=== PATIENT | male | born 1945 | race Caucasian/White ===

== ENCOUNTER 2016-11-03 10:25 | Inpatient (IN) | payer MEDICARE, BC ==
[~2016-11-03] VITALS: Ht 185.4 cm; Wt 79.0 kg
[~2016-11-03 10:25] MED LIST: ADV50050 INH; CIPR500T4 PO; IPRA4AER IH; THP300CCR PO; TIOT18CA INH; Tamsulosin Hcl PO
[2016-11-03] MEDS ORDERED: SOD CHLORIDE 0.9% 1,000 ML IV STA (10:48)
[2016-11-03] MEDS ORDERED: METHYLPREDNISOLONE 125 MG INJ IV STA (10:48)
[2016-11-03] MEDS ORDERED: IPRATROPIUM (NEB) 0.5 MG/2.5 ML AMP INH STA (10:48)
[2016-11-03] MEDS ORDERED: AZITHROMYCIN 500MG/250 ML NS IVPB IV STA (10:48)
[2016-11-03] MEDS ORDERED: CEFTRIAXONE 1 GM/50 ML (PMX) 50 ML IVPB STA (10:48)
[2016-11-03] MEDS ORDERED: ASPIRIN 81 MG TAB PO STA (10:48)
[2016-11-03] MEDS ORDERED: ALBUTEROL 0.083% (NEB) 2.5 MG/3 ML AMP INH STA (10:48)
[2016-11-03 11:24] LABS: ADD SCAN DIFF NO
[2016-11-03 11:27] LABS: ABNORMAL IP MESSAGE 1; HEMATOCRIT 39.8 % (42.0-52.0); HEMOGLOBIN 12.5 g/dl (14.0-18.0); MEAN CORPUSCULAR HEMOGLOBIN 29.4 pg (29.0-33.0); MEAN CORPUSCULAR HGB CONC 31.4 g/dl (32.0-37.0); MEAN CORPUSCULAR VOLUME 93.6 fl (82.0-101.0); MEAN PLATELET VOLUME 11.4 fl (7.4-10.4); PLATELET COUNT 396 10^3/UL (140-415); RED BLOOD COUNT 4.25 10^6/ul (4.70-6.10); RED CELL DISTRIBUTION WIDTH 15.5 % (11.5-14.5)
[2016-11-03] MEDS ORDERED: DILT180C94 PO (11:42)
--- NOTE | 2016-11-03 11:45 | RADRPT ---
PROCEDURE: XR Chest. CLINICAL INDICATION: Shortness of breath TECHNIQUE: Single frontal chest x-ray. COMPARISON: 12/04/2014 FINDINGS: There is large bullous change seen in the right upper thorax similar previous exam. There is new le ft suprahilar opacity.. Increase hilar vascular and interstitial congestion is seen. . There is hy perinflation of the lungs consistent with COPD. Calcified granulomas are noted in the right lower l obe.. The cardiomediastinal silhouette is unremarkable. The osseous structures are intact. IMPRESSION: 1. New left suprahilar opacity suggestive of infiltrate. Recommend follow-up. 2. Increase hilar vascular and interstitial congestive changes. 3. Hyperinflation of lungs with large bullous change in the right upper lobe similar prior exam. RPTAT: QQ .Axel Cedillo MD, MD Date Time Electronically viewed and signed by .Axel Cedillo MD, MD on 11/03/2016 11:44 .L/
[2016-11-03 11:54] LABS: CALCIUM 9.6 mg/dl (8.4-10.2); CREATININE 1.04 mg/dl (0.61-1.24); POTASSIUM 4.2 mmol/L (3.5-5.1)
[2016-11-03 12:01] LABS: INR 1.11; PROTIME 14.3 Sec (12.2-14.2); PT RATIO 1.1
[2016-11-03 12:06] LABS: TROPONIN-I 0.024 ng/ml (0.00-0.12)
[2016-11-03 12:07] LABS: PARTIAL THROMBOPLASTIN TIME 31.7 Sec (25.0-35.0)
[2016-11-03 12:35] LABS: LYMPHOCYTES # 1.8 10^3/ul (0.8-2.9); MONOCYTE # 2.1 10^3/ul (0.3-0.9); NEUTROPHIL # 30.4 10^3/ul (1.6-7.5)
[2016-11-03] MEDS ORDERED: DICLOFENAC SODIUM 37.5 MG/ML VIAL IV STA (12:35)
[2016-11-03] MEDS ORDERED: SODIUM CHLORIDE 0.9% 1L BAG IV* STA (12:38)
--- NOTE | 2016-11-03 12:56 | ERA ---
ER Documentation Chief Complaint Date/Time DATE: 11/03/16 TIME: 12:46 Chief Complaint rt side back pain s/p mechanical fall x 3 yesterday , sob h/o copd HPI 71-year-old male with a history of emphysema presenting with about 1 week of coughing and shortness of breath. He feels like he has something in his left chest. He has some chest discomfort but not pain. He has been trying to treat his COPD at home, but he has been increasingly getting more weak. He had a mechanical fall yesterday due to weakness in his legs. He now complains of right-sided lower back pain. He denies any focal weakness or numbness in his lower extremities. No urinary or bowel changes. He also complains that he has been feeling feverish ROS All systems reviewed and are negative except as per history of present illness. Medications Home Meds Active Scripts Albuterol/Ipratropium* (Combivent Respimat*) 20-100 Mcg/Inh - 4 Gm Aer.w.adap, 2 PUFF IH QID, #1 VIAL 1 Refill Prov:ABIGAIL FLORES 12/11/14 Salmeterol Xinaf-Fluticasone* (Advair*) 1 Inh Inha, 1 INH INH BID for 30 Days, 1 Refill Prov:ABIGAIL FLORES 12/11/14 [Tamsulosin Hcl] 0.4 MG CAPSR No Conflict Check, 0.4 MG PO HS for 30 Days Prov:ABIGAIL FLORES 12/11/14 Tiotropium [place]* (Spiriva*) 1 Inh Inha, 1 INH INH DAILY for 30 Days Prov:LEESA CARMICHAEL MANUFACTURING DEVELOPMENT ENGINEER 06/24/14 Reported Medications Diltiazem Hcl* (Diltiazem XT) 180 Mg Capsule.er, 180 MG PO DAILY, #30 CAP 11/03/16 Discontinued Scripts Theophylline Anhydrous* (Rocael-24*) 300 Mg Cap.sr.24h, 300 MG PO DAILY for 30 Days, CAP Prov:ABIGAIL FLORES 12/11/14 Ciprofloxacin Hcl* (Ciprofloxacin Hcl*) 500 Mg Tablet, 500 MG PO BID for 5 Days , TAB Prov:ABIGAIL FLORES 12/11/14 Allergies Allergies: Coded Allergies: Sulfa (Sulfonamide Antibiotics) (Verified Allergy, Intermediate, RASH, 04/10) levofloxacin (Verified Allergy, Unknown, 12/04/14) PMhx/Soc History of Surgery: Yes (Hernia repair, right ankle surgery) Anesthesia Reaction: No Hx Neurological Disorder: No Hx Respiratory Disorders: Yes (COPD, Emphysema) Hx Cardiac Disorders: Yes (HTN) Hx Psychiatric Problems: No Hx Miscellaneous Medical Probl: No Hx Alcohol Use: Yes Hx Substance Use: No Hx Tobacco Use: No Smoking Status: Former smoker FmHx Family History: No diabetes Physical Exam Vitals Vital Signs Date Time Temp Pulse Resp B/P Pulse Ox O2 Delivery O2 Flow Rate FiO2 11/03/16 11:33 113 20 95 Nasal Cannula 2.0 11/03/16 11:33 2.0 11/03/16 11:05 Nasal Cannula 2 11/03/16 11:05 120 24 110/81 96 Nasal Cannula 2.5 11/03/16 11:05 Nasal Cannula 2.5 11/03/16 10:33 98.9 134 20 101/65 90 Physical Exam Const: Speaking in short sentences, in respiratory distress Head: Atraumatic Eyes: Normal Conjunctiva, PERRLA, EOMI ENT: Dry mucous membranes, no stridor Neck: Full range of motion. No midline tenderness. No JVD. No meningismus. Resp: Significantly diminished breath sounds bilaterally with expiratory wheezing, left greater than right, no rales or rhonchi Cardio: Tachycardic with regular rhythm, no murmurs Abd: Soft, non tender, non distended. Normal bowel sounds Skin: No petechiae or rashes. No discoloration of extremities, cap refill less than 2 seconds Back: Tenderness of paraspinal muscles on the right side of the spine in the thoracic and lumbar region. No midline tenderness or step-offs. No ecchymoses. Ext: No cyanosis, left pedal and ankle edema, nontender bilateral lower extremities. Neur: Awake and alert and oriented 3, no facial asymmetry, strength and sensations intact in all 4 extremities Psych: Normal Mood and Affect Result Diagram: 11/03/16 1055 11/03/16 1055 Results 24 hrs Laboratory Tests Test 11/03/16 10:55 11/03/16 12:50 White Blood Count 35.310^3/ul Red Blood Count 4.2510^6/ul Hemoglobin 12.5g/dl Hematocrit 39.8% Mean Corpuscular Volume 93.6fl Mean Corpuscular Hemoglobin 29.4pg Mean Corpuscular Hemoglobin Concent 31.4g/dl Red Cell Distribution Width 15.5% Platelet Count 16201^3/UL Mean Platelet Volume 11.4fl Neutrophils % 86.0% Band Neutrophils % 3.0% Lymphocytes % 5.0% Monocytes % 6.0% Neutrophils # 30.410^3/ul Lymphocytes # 1.810^3/ul Monocytes # 2.110^3/ul Prothrombin Time 14.3Sec Prothrombin Time Ratio 1.1 INR International Normalized Ratio 1.11 Activated Partial Thromboplast Time 31.7Sec Sodium Level 143mmol/L Potassium Level 4.2mmol/L Chloride Level 102mmol/L Carbon Dioxide Level 32mmol/L Anion Gap 13 Blood Urea Nitrogen 25mg/dl Creatinine 1.04mg/dl Glucose Level 112mg/dl Lactic Acid Level 2.2mmol/L 2.7mmol/L Calcium Level 9.6mg/dl Troponin I 0.024ng/ml Current Medications Medications (Trade) Dose Ordered Sig/Kat Route PRN Reason Start Time Stop Time Status Last Admin Dose Admin Sodium Chloride (NS) 1,000 ml @ 1,000 mls/hr Q1H STAT IV 11/03/16 10:48 11/03/16 11:47 DC 11/03/16 11:20 Albuterol (Proventil 0.083% (Neb)) 7.5 mg ONCE STAT INH 11/03/16 10:48 11/03/16 10:50 DC 11/03/16 11:27 Ipratropium [place] (Atrovent 0.02% (Neb)) 0.5 mg ONCE STAT INH 11/03/16 10:48 11/03/16 10:50 DC 11/03/16 11:27 Methylprednisolone Sodium Succinate (Solu-Medrol) 125 mg ONCE STAT IV 11/03/16 10:48 11/03/16 10:50 DC 11/03/16 11:19 Aspirin (Aspirin) 162 mg ONCE STAT PO 11/03/16 10:48 11/03/16 10:50 DC 11/03/16 11:19 Azithromycin 500 mg 500 mg ONCE STAT IV 11/03/16 10:48 11/03/16 10:50 DC 11/03/16 11:20 Ceftriaxone Sodium (Rocephin) 50 ml @ 100 mls/hr ONCE STAT IVPB 11/03/16 10:48 11/03/16 11:17 DC 11/03/16 11:19 Diclofenac Sodium (Dyloject) 37.5 mg ONCE STAT IV 11/03/16 12:35 11/03/16 12:37 DC 11/03/16 12:41 Sodium Chloride (NS) 1,450 ml BOLUS OVER 2 HOURS STAT IV* 11/03/16 12:38 11/03/16 12:39 DC 11/03/16 12:45 Ondansetron HCl (Zofran Inj) 4 mg ER BRIDGE PRN IV NAUSEA AND/OR VOMITING 11/03/16 13:30 11/04/16 13:29 Acetaminophen (Tylenol Tab) 650 mg ER BRIDGE PRN PO MILD PAIN/FEVER 11/03/16 13:30 11/04/16 13:29 Procedures/MDM Labs: Leukocytosis, elevated lactate, elevated CO2. troponin above the upper limit of normal, indeterminate Chest x-ray: IMPRESSION: 1. New left suprahilar opacity suggestive of infiltrate. Recommend follow-up. 2. Increase hilar vascular and interstitial congestive changes. 3. Hyperinflation of lungs with large bullous change in the right upper lobe similar prior exam. RPTAT: QQ .Axel Cedillo MD, MD Date Time Electronically viewed and signed by .Axel Cedillo MD, MD on 11/03/2016 11:44 L-spine x-ray pending T-spine x-ray pending MDM Patient is presenting with evidence of COPD exacerbation secondary to pneumonia with concomitant sepsis. Broad-spectrum antibiotics including azithromycin and ceftriaxone were given. IV fluids were started. Dyloject checked was given for pain. I have a low suspicion for spinal fracture, however given his significant pain and age, x-rays were ordered. Patient's infectious symptoms have not stabilized and the patient is at risk of rapid decompensation. The patient will be admitted for careful hydration, antibiotic therapy, and infectious source control. Severe Sepsis Assessment: Infectious Source: Community acquired pneumonia End organ damage indicated by: Lactate > 2.0 mmol/L Severe Sepsis Managment: Blood Cultures X 2 before broad spectrum antibiotics initiated within 3 hours of recognition. 30 ml/kg NS bolus Completed Initial Lactate: 2.2 Repeat Lactate pending Critical Care: Time: 40 minutes Treatments/Evaluations: Emergent fluid management, while maintaining close respiratory support. Immediate broad spectrum antibiotic therapy. Simultaneous assessment for possible sources in order to direct therapy. Consideration for invasive and chemical support to prevent respiratory or cardiac collapse. Septic Shock Assessment (1 hour post 30 ml/kg fluid bolus): Hypotension (SBP < 90 or 40 mmHg drop, MAP < 65): No Lactic acid > 4.0 no Accepting Care Team: Current data and ongoing care discussed. Time: Time of admission Primary Provider: Arvind Consulting: None Outstanding Data: Cultures, x-rays of T and L-spine Departure Diagnosis: Primary Impression: Acute respiratory failure Qualified Code: J96.00 - Acute respiratory failure, unspecified whether with hypoxia or hypercapnia Additional Impressions: Sepsis Qualified Code: A41.9 - Sepsis, due to unspecified organism Community acquired pneumonia COPD with exacerbation Condition: Critical STEFANIE SANTIAGO MD Nov 03, 2016 12:56
[2016-11-03] MEDS ORDERED: ONDANSETRON 4 MG INJ IV PRN ×2 (13:30→15:30)
[2016-11-03] MEDS ORDERED: ACETAMINOPHEN 325 MG TAB PO PRN ×2 (13:30→15:30)
--- NOTE | 2016-11-03 13:55 | RADRPT ---
PROCEDURE: Thoracic Spine. CLINICAL INDICATION: Back pain. Status post fall. TECHNIQUE: AP and lateral views of the thoracic spine are available for review COMPARISON: None available FINDINGS: Slight levocurvature of the lower thoracic spine.. The vertebral body heights and intervertebral di sk heights are all preserved. The normal thoracic kyphosis is present. No fracture or dislocation is seen. No radiopaque foreign body is identified. The paraspinous soft tissues are unremarkable. Degenerative spondylosis of the right lower thoracic spine is present. Again noted is a left upper l aurelia opacity or infiltrate. IMPRESSION: No acute fracture or compression. Left upper lung opacity or infiltrate. Mild levocurvature of the lower lumbar spine with degenerative spondylosis RPTAT: QQ .Axel Cedillo MD, Date Time Electronically viewed and signed by .Axel Cedillo MD, on 11/03/2016 13:55 .L/
--- NOTE | 2016-11-03 14:03 | RADRPT ---
PROCEDURE: XR Lumbar Spine. CLINICAL INDICATION: Fall with pain. TECHNIQUE: Three views of the lumbar spine are available for review COMPARISON: None available FINDINGS: There is no definite acute fracture or static subluxation. There is lumbar dextroscoliosis with asso ciated moderate to severe multilevel degenerative spondylosis. The normal lumbar lordosis is preserv ed and the alignment is normal. The posterior elements are normal in appearance. There are atheroscl erotic vascular calcifications. IMPRESSION: 1. Negative for definite acute fracture or static subluxation. If clinical concern for fracture rem ains, CT or MRI can be performed for further evaluation. 2. Lumbar dextroscoliosis and associated multilevel moderate to severe degenerative spondylosis. 3. Vascular calcifications consistent with atherosclerosis. RPTAT: AA .Jaquan Bonds MD, Date Time Electronically viewed and signed by .Jaquan Bonds MD, MD on 11/03/2016 14:02 .P/
[2016-11-03] MEDS ORDERED: HYDROCODONE/APAP (5/325) TAB PO PRN (15:30)
[2016-11-03] MEDS ORDERED: morphine 2 MG INJ IV PRN (15:30)
[2016-11-03] MEDS ORDERED: NACL 0.9% 3 ML SYG IV SCH (15:30)
[2016-11-03] MEDS ORDERED: DOCUSATE SODIUM 100 MG CAP PO PRN (15:30)
[2016-11-03] MEDS ORDERED: ACETAMINOPHEN 650 MG SUPP PR PRN (15:30)
[2016-11-03] MEDS ORDERED: BISACODYL 10 MG SUPP PR PRN (15:30)
--- NOTE | 2016-11-03 16:22 | HP ---
Date/Time of Note Date/Time of Note DATE: 11/03/16 TIME: 16:11 Assessment/Plan VTE Prophylaxis VTE Prophylaxis Intervention: heparin Assessment/Plan Chief Complaint/Hosp Course Assessment and plan 1. Sepsis secondary to community acquired pneumonia. Continue antibiotics. Follow-up on sputum culture. 2. COPD with exacerbation. Will get record librarian to follow. Will start on bronchodilators. We will also place on steroid treatment. 3. BPH. Patient resumed on his BPH medication 4. Leukocytosis secondary to #1. Will provide with antipyretics as needed. 5. Anemia. Follow-up on iron panel. DVT prophylaxis: Heparin Admission process 40 minutes Discussed plan of care with Problems: HPI/ROS Admit Date/Time Admit Date/Time Hx of Present Illness This is a 71 year old female with history of emyphysema, BPH, o2 dependence, who came to [facility] due to reports of 5 days duration shortness of breath. Patient reports that he started to have some cough with associated productive yellow phlegm and also increasing dyspnea on exertion for 5 days. He did report that he had become so weak that he fell on his tailbone 3 times when trying to get up from his couch. He denies any loss of consciousness or chest pain. No reports having symptoms of shortness of breath despite the use of his inhalers. He did go to [facility] due to the aformentiond issues and he did have a chest x-ray did show him to have a new left suprahilar opacity suggestive of pneumonia. There is also seen some increase in hilar vascular and interstitial congestive changes. Additionally since he did have a fall he had thoracic and lumbar spine x-ray that was negative for any definite acute fracture. On laboratory work she was found to have a lactic acid of 2.7 and additionally had a white count of 35.3. He did have some pneumonia normocytic normochromic likely of chronic disease. He did remain afebrile but was noted with heart rate as high as 120. We will evaluate him for the aformentiond issues ROS 12 point review of systems obtained and entirely negative except that mentioned in the history of present illness PMH/Family/Social Past Medical History Medical/surgical history 1. Emphysema/COPD 2. Deep BPH 3. O2 dependency Social History Smoking Status: Former smoker (40 year smoking history one pack per day quit 10 years ago) Exam/Review of Systems Vital Signs Vitals Vital Signs Date Time Temp Pulse Resp B/P Pulse Ox O2 Delivery O2 Flow Rate FiO2 11/03/16 15:47 125/81 11/03/16 11:33 113 20 95 Nasal Cannula 2.0 11/03/16 10:33 98.9 Exam Constitutional: alert Head: normocephalic Eyes: nl conjunctiva Neck: supple, No jvd Respiratory: wheezing Cardiovascular: other Gastrointestinal: non-tender, soft (Tachycardia) Musculoskeletal: No nl gait and stance Extremities: edema (On left lower extreme) Neurological: CURRICULUM AND INSTRUCTION DIRECTOR II-XII intact, nl mental status, nl speech Skin: nl turgor Labs Result Diagram: 11/03/16 1055 11/03/16 1055 Medications Medications Current Medications Diltiazem HCl (Cardizem Cd) 180 mg DAILY PO ; Start 11/04/16 at 09:00 Salmeterol Xinafoate/ Fluticasone (Advair 500/50 Diskus) 1 inh BID INH ; Start 11/03/16 at 21:00 Tiotropium [place] (Spiriva) 1 inh DAILY INH ; Start 11/04/16 at 09:00 Tamsulosin HCl (Flomax) 0.4 mg HS PO ; Start 11/03/16 at 21:00 Ondansetron HCl (Zofran Inj) 4 mg Q6H PRN IV NAUSEA AND/OR VOMITING; Start 03/12 at 15:30 Acetaminophen (Tylenol Tab) 650 mg Q6H PRN PO PAIN LEVEL 1-3 OR FEVER; Start at 15:30 Acetaminophen (Tylenol Supp) 650 mg Q6H PRN NE PAIN LEVEL 1-3 OR FEVER; Start 11/03/16 at 15:30 Acetaminophen/ Hydrocodone Bitart ([place] (5/325)) 1 tab Q6H PRN PO MODERATE PAIN LEVEL 4-6; Start 11/03/16 at 15:30 Acetaminophen/ Hydrocodone Bitart ([place] (5/325)) 2 tab Q6H PRN PO SEVERE PAIN LEVEL 7-10; Start 11/03/16 at 15:30 Morphine Sulfate (morphine) 2 mg Q4H PRN IV SEVERE PAIN LEVEL 7-10; Start 11/03 at 15:30 Docusate Sodium (Colace) 100 mg Q12H PRN PO CONSTIPATION; Start 11/03/16 at 15: 30 Magnesium Hydroxide (Milk Of Mag) 30 ml DAILY PRN PO CONSTIPATION; Start at 15:30 Bisacodyl (Dulcolax Supp) 10 mg DAILY PRN NE CONSTIPATION; Start 11/03/16 at 15 :30 Pantoprazole (Protonix Iv) 40 mg DAILY@06 IV ; Start 11/04/16 at 06:00 Heparin Sodium (Porcine) 5000 unit 5,000 unit Q12 SC ; Start 11/03/16 at 21:00 Ceftriaxone Sodium 50 ml @ 100 mls/hr Q24H IVPB ; Start 11/04/16 at 12:00 Azithromycin (Zithromax 500mg/ NS (Pmx)) 250 ml @ 250 mls/hr Q24H IV ; Start at 10:00 Guaifenesin (Mucinex) 600 mg BID PO ; Start 11/03/16 at 21:00 TERESA WALLACE Nov 03, 2016 16:22
[2016-11-03] MEDS ORDERED: SOD CHLORIDE 0.9% 1,000 ML IV SCH (16:30)
[2016-11-03 16:53] VITALS: BP 126/66; PULSE 99; RESP 20
[2016-11-03 17:11] VITALS: PULSE 96
[2016-11-03 17:14] VITALS: Ht 185.4 cm; Wt 79.0 kg
--- NOTE | 2016-11-03 17:18 | RADRPT ---
PROCEDURE: Left Lower Extremity Venous Duplex US CLINICAL INDICATION: Left lower extremity pain and swelling. TECHNIQUE: Multiple longitudinal and transverse images of the the left lower extremity veins were obtained with marino scale and color Doppler imaging. 2D grayscale measurements with compression, col or Doppler flow, and augmentation was performed. The calf veins were interrogated as well. COMPARISON: No prior studies are available for comparison. FINDINGS: The left common femoral, superficial femoral and popliteal veins are normally compressible throughou t. Color flow demonstrates normal filling of the vessel. Normal waveforms are visualized and there is normal response to augmentation. The calf veins are visualized and are equally unremarkable. IMPRESSION: 1. No evidence of left lower extremity deep vein thrombosis. RPTAT: QQ .Axel Cedillo MD, MD Date Time Electronically viewed and signed by .Axel Cedillo MD, on 11/03/2016 17:17 .L/
--- NOTE | 2016-11-03 18:54 | CONS ---
DATE OF ADMISSION: 11/03/2016 DATE OF CONSULTATION: 11/03/2016 TYPE OF CONSULTATION: Pulmonary REASON FOR CONSULTATION: COPD exacerbation. HISTORY OF PRESENT ILLNESS: Briefly, Mr. Hopson is a 71-year-old gentleman with severe bullous e mphysema, chronically home O2 dependent, status post multiple exacerbations in the past, who last christianson d an exacerbation approximately a month ago where he was hospitalized at [facility] in [facility]. He states that he never quite recovered from his exacerbation a month prior and more recentl y during the past 5 days has had increasing phlegm production and increasing shortness of breath. U alessandra presentation here in the emergency room, he was noted to have evidence of sepsis with leukocytos is, tachycardia, mild lactic acidosis and evidence of a left perihilar infiltrate. PAST MEDICAL HISTORY: Emphysema, BPH. SOCIAL HISTORY: Former tobacco history, [id number], quit 10 years ago. No alcohol or illicit dr ug use. ALLERGIES: NONE. MEDICATIONS: Please see MAR. FAMILY HISTORY: Noncontributory. REVIEW OF SYSTEMS: As noted in the HPI. PHYSICAL EXAMINATION: GENERAL: A well-nourished, well-developed gentleman with pursed lip breathing, in no acute distress . VITAL SIGNS: Oxygen saturation is 95% on 2 liters nasal cannula, blood pressure 122/66, temperature is 97.6. HEENT: Normocephalic, atraumatic. NECK: Mildly distended jugular venous pressures. No thyromegaly. CARDIOVASCULAR: Distant S1 and S2, no murmurs, rubs, or gallops. CHEST: Diffusely decreased breath sounds in the right more than left, and some wheezing heard on th e left lung field posteriorly. ABDOMEN: Soft, nontender. EXTREMITIES: There is trace lower extremity edema. LABORATORY DATA: WBC count is 35.3, hemoglobin is 12.5. Bicarbonate is 32. Chest x-ray shows incr eased lucency on the right lung consistent with severe emphysema with bullous disease and left perih ilar ill-defined airspace opacities. IMPRESSION: 1. Chronic obstructive pulmonary disease exacerbation in a gentleman with severe pulmonary emphysem a. 2. Likely left-sided pneumonia. In view of his recent hospitalization a month ago, must cover for healthcare-associated pathogens. 3. Possible cor pulmonale. RECOMMENDATIONS: 1. Bronchodilators with albuterol and Atrovent q. 4 hours around the clock. 2. Antibiotics with cefepime and Zosyn for the time being. 3. Sputum culture and Gram stain. 4. Solu-Medrol 40 mg IV q. 8 hours for now with plans to taper. 5. Continue daily Lasix. 6. Check a 2D echo to evaluate LV function as well as PA pressures. 7. He appears to have a very exuberant leukocytosis. If there is no improvement, would consider po ssible assessment for possible C. difficile coexisting. Dictated By: TANIYA LEYVA MD NK/NTS Conf#: [id number] DID#: [id number] CC: TERESA WALLACE NP; SOY WILCOX MD;*[facility]*
[2016-11-03 19:11] LABS: IRON 14 ug/dl (35-150)
[2016-11-03 19:20] LABS: TOTAL IRON BINDING CAPACITY 163 ug/dl (241-421)
[2016-11-03] MEDS ORDERED: ALBUTEROL/IPRATROPIUM (NEB) 3 ML AMP HHN SCH (20:00)
[2016-11-03] MEDS ORDERED: LEVALBUTEROL (NEB) 0.63 MG/3 ML AMP HHN SCH (20:00)
[2016-11-03 20:32] VITALS: PULSE 88
[2016-11-03 20:46] VITALS: BP 110/65; RESP 22
[2016-11-03] MEDS ORDERED: SALMETEROL/FLUTICASONE 500/50 INHA INH SCH (21:00)
[2016-11-03] MEDS: METHYLPREDNISOLONE 40 MG INJ IV SCH (21:32)
[2016-11-03] MEDS: GUAIFENESIN LA 600 MG TABSR PO SCH (21:32)
[2016-11-03] MEDS: TAMSULOSIN (SR) 0.4 MG CAP PO SCH (21:32)
[2016-11-03] MEDS: CEFEPIME 2GM/50 ML (PMX) 50 ML IVPB SCH (21:32)
[2016-11-03] MEDS: HEPARIN 5,000 UNIT/0.5 ML VIAL SC SCH (21:39)
[2016-11-03] MEDS: ALBUTEROL/IPRATROPIUM (NEB) 3 ML AMP HHN SCH (21:57)
[2016-11-03] MEDS ORDERED: METHYLPREDNISOLONE 125 MG INJ IV SCH (22:00)
[2016-11-03 23:37] VITALS: BP 116/65; RESP 20
[2016-11-03] MEDS: HYDROCODONE/APAP (5/325) TAB PO PRN (23:44)
[2016-11-04] VITALS (11 sets, daily range): BP systolic 98–122; BP diastolic 54–69; PULSE 77–114; RESP 17–22
[2016-11-04] MEDS: ALBUTEROL/IPRATROPIUM (NEB) 3 ML AMP HHN SCH ×6 (01:21→19:46)
[2016-11-04] MEDS: ZOLPIDEM 5 MG TAB PO PRN (01:45)
[2016-11-04] MEDS ORDERED: PANTOPRAZOLE 40 MG INJ IV SCH (06:00)
[2016-11-04] MEDS: FUROSEMIDE 40 MG INJ IV SCH (06:00)
[2016-11-04] MEDS: METHYLPREDNISOLONE 40 MG INJ IV SCH ×3 (06:34→20:40)
[2016-11-04 08:03] LABS: ALBUMIN 2.6 g/dl (3.3-4.9); ALBUMIN/GLOBULIN RATIO 0.81; CALCIUM 8.6 mg/dl (8.4-10.2); CHOL/HDL RATIO 6.1 RATIO; CREATININE 0.75 mg/dl (0.61-1.24); MAGNESIUM 2.2 mg/dl (1.7-2.5); PHOSPHORUS 4.1 mg/dl (2.5-4.9); POTASSIUM 3.6 mmol/L (3.5-5.1); TOTAL PROTEIN 5.8 g/dl (6.1-8.1)
[2016-11-04 08:14] LABS: T3 UPTAKE 59.3 % (23.5-40.5)
[2016-11-04 08:40] LABS: THYROID STIMULATING HORMONE 0.421 MIU/L (0.465-4.680)
[2016-11-04] MEDS: HEPARIN 5,000 UNIT/0.5 ML VIAL SC SCH ×2 (08:40→20:49)
[2016-11-04] MEDS: CEFEPIME 2GM/50 ML (PMX) 50 ML IVPB SCH ×2 (08:40→20:40)
[2016-11-04] MEDS: GUAIFENESIN LA 600 MG TABSR PO SCH ×3 (08:41→21:00)
[2016-11-04] MEDS: DILTIAZEM (CD) 180 MG CAP PO SCH (08:41)
[2016-11-04] MEDS ORDERED: TIOTROPIUM 18 MCG CAPSULE INHA DEV INH SCH (09:00)
[2016-11-04] MEDS: AZITHROMYCIN 500MG/NS (PMX) 250 ML IV SCH (10:30)
[2016-11-04] MEDS ORDERED: CEFTRIAXONE 1 GM/50 ML (PMX) 50 ML IVPB SCH (12:00)
--- NOTE | 2016-11-04 13:55 | PN ---
Date/Time of Note Date/Time of Note DATE: 11/04/16 TIME: 13:49 Assessment/Plan VTE Prophylaxis VTE Prophylaxis Intervention: heparin Lines/Catheters IV C[facility]ter Type ([facility] [place] Assessment/Plan Chief Complaint/Hosp Course Assessment and plan 1. Sepsis secondary to hospital-acquired pneumonia. Continue antibiotics. 2. COPD with exacerbation. Will get sales operations specialist to follow. Will start on bronchodilators. We will also place on steroid treatment. 3. BPH. Patient resumed on his BPH medication 4. Leukocytosis secondary to #1. Will provide with antipyretics as needed. 5. Anemia. Follow-up on iron panel. DVT prophylaxis: Heparin DISPO/PLAN: still with shortness of breath. continue on abx and steroid. await clinical improvement of respiratory status Discussed plan of care with Problems: Subjective 24 Hr Interval Summary Free Text/Dictation Still reports having some shortness of breath on exertion Exam/Review of Systems Vital Signs Vitals Vital Signs Date Time Temp Pulse Resp B/P Pulse Ox O2 Delivery O2 Flow Rate FiO2 11/04/16 13:01 2.0 11/04/16 13:01 20 90 Nasal Cannula 11/04/16 12:11 92 11/04/16 11:49 97.5 122/69 Intake and Output 11/03/16 11/03/16 11/04/16 15:00 23:00 07:00 Intake Total 400 ml Balance 400 ml Exam Constitutional: alert, oriented Psych: nl mood/affect Head: normocephalic Neck: supple Respiratory: wheezing Cardiovascular: other Gastrointestinal: non-tender, soft Extremities: edema (Little bit left lower extreme) Neurological: [employer] GRADER II-XII intact, nl mental status, nl speech Skin: nl turgor Results Result Diagram: 11/03/16 1055 11/04/16 0525 Results 24 hrs Laboratory Tests Test 11/03/16 15:20 11/03/16 18:20 11/04/16 05:25 Lactic Acid Level 2.0 Iron Level 14 L Total Iron Binding Capacity 163 L Percent Iron Saturation 9 L Sodium Level 145 H Potassium Level 3.6 Chloride Level 109 Carbon Dioxide Level 28 Anion Gap 12 Blood Urea Nitrogen 24 H Creatinine 0.75 Glucose Level 141 Hemoglobin A1c 5.9 Calcium Level 8.6 Phosphorus Level 4.1 Magnesium Level 2.2 Total Bilirubin 0.0 L Direct Bilirubin 0.00 Indirect Bilirubin 0.0 Aspartate Amino Transf (AST/SGOT) 15 Alanine Aminotransferase (ALT/SGPT) 31 Alkaline Phosphatase 100 Total Protein 5.8 L Albumin 2.6 L Globulin 3.20 Albumin/Globulin Ratio 0.81 Triglycerides Level 128 Cholesterol Level 98 L LDL Cholesterol, Calculated 56 HDL Cholesterol 16 L Cholesterol/HDL Ratio 6.1 Thyroid Stimulating Hormone (TSH) 0.421 L Free Thyroxine Index 1.54 Thyroxine (T4) 2.6 L Triiodothyronine (T3) Uptake 59.3 H Medications Medications Current Medications Diltiazem HCl (Cardizem Cd) 180 mg DAILY PO Last administered on 11/04/16 08: 41; Admin Dose 180 MG; Start 11/04/16 at 09:00 Salmeterol Xinafoate/ Fluticasone (Advair 500/50 Diskus) 1 inh BID INH ; Start 11/03/16 at 21:00; Status Future Hold Tiotropium [place] (Spiriva) 1 inh DAILY INH ; Start 11/04/16 at 09:00; Status Future Hold Tamsulosin HCl (Flomax) 0.4 mg HS PO Last administered on 11/03/16 21:32; Admin Dose 0.4 MG; Start 11/03/16 at 21:00 Ondansetron HCl (Zofran Inj) 4 mg Q6H PRN IV NAUSEA AND/OR VOMITING; Start 03/12 at 15:30 Acetaminophen (Tylenol Tab) 650 mg Q6H PRN PO PAIN LEVEL 1-3 OR FEVER; Start at 15:30 Acetaminophen (Tylenol Supp) 650 mg Q6H PRN [place] PAIN LEVEL 1-3 OR FEVER; Start 11/03/16 at 15:30 Acetaminophen/ Hydrocodone Bitart ([place] (5/325)) 1 tab Q6H PRN PO MODERATE PAIN LEVEL 4-6 Last administered on 11/03/16 23:44; Admin Dose 1 TAB; Start 03/12 at 15:30 Acetaminophen/ Hydrocodone Bitart ([place] (5/325)) 2 tab Q6H PRN PO SEVERE PAIN LEVEL 7-10; Start 11/03/16 at 15:30 Morphine Sulfate (morphine) 2 mg Q4H PRN IV SEVERE PAIN LEVEL 7-10; Start 11/03 at 15:30 Docusate Sodium (Colace) 100 mg Q12H PRN PO CONSTIPATION; Start 11/03/16 at 15: 30 Magnesium Hydroxide (Milk Of Mag) 30 ml DAILY PRN PO CONSTIPATION; Start at 15:30 Bisacodyl (Dulcolax Supp) 10 mg DAILY PRN [place] CONSTIPATION; Start 11/03/16 at 15 :30 Pantoprazole (Protonix Iv) 40 mg DAILY@06 IV Last administered on 11/04/16 06: 33; Admin Dose 40 MG; Start 11/04/16 at 06:00 Heparin Sodium (Porcine) 5000 unit 5,000 unit Q12 SC Last administered on 08:40; Admin Dose 5,000 UNIT; Start 11/03/16 at 21:00 Azithromycin (Zithromax 500mg/ NS (Pmx)) 250 ml @ 250 mls/hr Q24H IV Last administered on 11/04/16 10:30; Admin Dose 250 MLS/HR; Start 11/04/16 at 10:00 Guaifenesin (Mucinex) 600 mg BID PO Last administered on 11/04/16 08:41; Admin Dose 600 MG; Start 11/03/16 at 21:00 Furosemide (Lasix) 40 mg DAILY@06 IV ; Start 11/04/16 at 06:00 Methylprednisolone Sodium Succinate 40 mg 40 mg Q8 IV Last administered on 11/04 06:34; Admin Dose 40 MG; Start 11/03/16 at 22:00 Cefepime HCl (Maxipime 2gm/50 ml (Pmx)) 50 ml @ 100 mls/hr Q12 IVPB Last administered on 11/04/16 08:40; Admin Dose 100 MLS/HR; Start 11/03/16 at 21:00 Zolpidem Tartrate (Ambien) 5 mg HS PRN PO INSOMNIA Last administered on 01:45; Admin Dose 5 MG; Start 11/04/16 at 01:30 TERESA WALLACE Nov 04, 2016 13:55
--- NOTE | 2016-11-04 14:09 | RADRPT ---
Echocardiogram Report Patient Name: ALDO DYE Gender: Male Date: 1945 Study Date: 04-Nov-2016 Contact Lens Lathe Operator: KP Location: E Ref. Physician: TERESA WALLACE Quality: Technically Difficult Study Procedures: Transthoracic echocardiogram with complete 2D, M-Mode, and doppler examination. Indications: Dyspnea; Hx of COPD. 2D/M Mode Doppler Measurement Value Normal Ranges Measurement Value Normal Ranges LVIDd MM 4.5 cm LVOT Peak Lorenzo 0.6 m/sec LVIDs MM 2.7 cm MV E Peak Lorenzo 0.6 m/sec LVPWd MM 1.2 cm MV A Peak Lorenzo 0.7 m/sec IVSd MM 1.3 cm MV E/A 0.8 AoR Diam MM 3.6 cm MV Decel Time 285 msec ACS MM 2.0 cm MV Decel [place] 2 LA Dimen 2D 2.3 2.3 - 4.0 cm MV E/A 0.8 TR Peak Lorenzo 2.1 m/sec TR Peak PG 17.6 mmHg PV Mean Lorenzo 0.8 m/sec PV Mean PG 3.0 mmHg RVSP 20.6 mmHg Findings Left Ventricle: Overall, normal left ventricular systolic function. Not all segments visualized. Normal left ventricular cavity size. Mild concentric left ventricular hypertrophy. Ejection fraction is visually estimated at 5560 %. Tissue Doppler/Mitral Doppler indices are consistent with impaired relaxation (Stage I diastolic dysfunction). E/E`=7. Right Ventricle: Normal right ventricular size. Left Atrium: The left atrium is normal in size. Right Atrium: The right atrium is normal in size. Atrial Septum: Normal atrial septum. Mitral Valve: Normal appearance of the mitral valve. Probably mild mitral valve regurgitation, eccentric ject. Aortic Valve: Normal appearance of the aortic valve. No significant aortic stenosis or insufficiency. Tricuspid Valve: Normal appearance of the tricuspid valve. Estimated peak PA systolic pressure 21 mmHg. There is trace tricuspid regurgitation. Pulmonic Valve: Pulmonic valve not well visualized. No evidence of pulmonic regurgitation. Pericardium: Normal pericardium with no significant pericardial effusion. Aorta: Normal aortic root. IVC: Normal size and normal respiratory collapse consistent with normal right atrial pressure. Pulmonary Artery: Normal pulmonary artery size. Conclusions 1.Overall, normal left ventricular systolic function. Not all segments visualized. Normal left ventricular cavity size. Mild concentric left ventricular hypertrophy. Ejection fraction is visually estimated at 55-60 %. Tissue Doppler/Mitral Doppler indices are consistent with impaired relaxation (Stage I diastolic dysfunction). E/E`=7. 2.Normal appearance of the mitral valve. Probably mild mitral valve regurgitation, eccentric ject. 3.Normal appearance of the tricuspid valve. Estimated peak PA systolic pressure 21 mmHg. There is trace tricuspid regurgitation. Electronically Signed By: Ricco Cody 04-Nov-2016 14:09:09 0700 Patient Name: ALDO DYE Study Date: 04-Nov-[id number]
--- NOTE | 2016-11-04 17:18 | CONS ---
Date/Time of Note Date/Time of Note DATE: 11/04/16 TIME: 17:16 Consult Date/Type/Reason Admit Date/Time Nov 03, 2016 at 13:29 Initial Consult Date Type of Consultation: pulm Subjective No events. Still SOB Objective Vital Signs Date Time Temp Pulse Resp B/P Pulse Ox O2 Delivery O2 Flow Rate FiO2 11/04/16 16:50 20 91 Nasal Cannula 2.0 11/04/16 16:08 86 11/04/16 15:55 98.7 118/59 Intake and Output 11/03/16 11/03/16 11/04/16 15:00 23:00 07:00 Intake Total 400 ml Balance 400 ml Exam NECK: Mildly distended jugular venous pressures. No thyromegaly. CARDIOVASCULAR: Distant S1 and S2, no murmurs, rubs, or gallops. CHEST: Diffusely decreased breath sounds in the right more than left, and some wheezing heard on the left lung field posteriorly. ABDOMEN: Soft, nontender. EXTREMITIES: There is trace lower extremity edema. Results/Medications Result Diagram: 11/03/16 1055 11/04/16 0525 Results 24 hrs Laboratory Tests Test 11/03/16 18:20 11/04/16 05:25 Iron Level 14 L Total Iron Binding Capacity 163 L Percent Iron Saturation 9 L Sodium Level 145 H Potassium Level 3.6 Chloride Level 109 Carbon Dioxide Level 28 Anion Gap 12 Blood Urea Nitrogen 24 H Creatinine 0.75 Glucose Level 141 Hemoglobin A1c 5.9 Calcium Level 8.6 Phosphorus Level 4.1 Magnesium Level 2.2 Total Bilirubin 0.0 L Direct Bilirubin 0.00 Indirect Bilirubin 0.0 Aspartate Amino Transf (AST/SGOT) 15 Alanine Aminotransferase (ALT/SGPT) 31 Alkaline Phosphatase 100 Total Protein 5.8 L Albumin 2.6 L Globulin 3.20 Albumin/Globulin Ratio 0.81 Triglycerides Level 128 Cholesterol Level 98 L LDL Cholesterol, Calculated 56 HDL Cholesterol 16 L Cholesterol/HDL Ratio 6.1 Thyroid Stimulating Hormone (TSH) 0.421 L Free Thyroxine Index 1.54 Thyroxine (T4) 2.6 L Triiodothyronine (T3) Uptake 59.3 H Medications Current Medications Diltiazem HCl (Cardizem Cd) 180 mg DAILY PO Last administered on 11/04/16t 08: 41; Admin Dose 180 MG; Start 11/04/16 at 09:00 Salmeterol Xinafoate/ Fluticasone (Advair 500/50 Diskus) 1 inh BID INH ; Start 11/03/16 at 21:00; Status Future Hold Tiotropium [place] (Spiriva) 1 inh DAILY INH ; Start 11/04/16 at 09:00; Status Future Hold Tamsulosin HCl (Flomax) 0.4 mg HS PO Last administered on 11/03/16 21:32; Admin Dose 0.4 MG; Start 11/03/16 at 21:00 Ondansetron HCl (Zofran Inj) 4 mg Q6H PRN IV NAUSEA AND/OR VOMITING; Start 03/12 at 15:30 Acetaminophen (Tylenol Tab) 650 mg Q6H PRN PO PAIN LEVEL 1-3 OR FEVER; Start at 15:30 Acetaminophen (Tylenol Supp) 650 mg Q6H PRN [place] PAIN LEVEL 1-3 OR FEVER; Start 11/03/16 at 15:30 Acetaminophen/ Hydrocodone Bitart ([place] (5/325)) 1 tab Q6H PRN PO MODERATE PAIN LEVEL 4-6 Last administered on 11/03/16 23:44; Admin Dose 1 TAB; Start 03/12 at 15:30 Acetaminophen/ Hydrocodone Bitart ([place] (5/325)) 2 tab Q6H PRN PO SEVERE PAIN LEVEL 7-10; Start 11/03/16 at 15:30 Morphine Sulfate (morphine) 2 mg Q4H PRN IV SEVERE PAIN LEVEL 7-10; Start 11/03 at 15:30 Docusate Sodium (Colace) 100 mg Q12H PRN PO CONSTIPATION; Start 11/03/16 at 15: 30 Magnesium Hydroxide (Milk Of Mag) 30 ml DAILY PRN PO CONSTIPATION; Start at 15:30 Bisacodyl (Dulcolax Supp) 10 mg DAILY PRN [place] CONSTIPATION; Start 11/03/16 at 15 :30 Heparin Sodium (Porcine) 5000 unit 5,000 unit Q12 SC Last administered on 08:40; Admin Dose 5,000 UNIT; Start 11/03/16 at 21:00 Azithromycin (Zithromax 500mg/ NS (Pmx)) 250 ml @ 250 mls/hr Q24H IV Last administered on 11/04/16 10:30; Admin Dose 250 MLS/HR; Start 11/04/16 at 10:00 Guaifenesin (Mucinex) 600 mg BID PO Last administered on 11/04/16 08:41; Admin Dose 600 MG; Start 11/03/16 at 21:00 Furosemide (Lasix) 40 mg DAILY@06 IV ; Start 11/04/16 at 06:00 Methylprednisolone Sodium Succinate 40 mg 40 mg Q8 IV Last administered on 11/04 14:39; Admin Dose 40 MG; Start 11/03/16 at 22:00 Cefepime HCl (Maxipime 2gm/50 ml (Pmx)) 50 ml @ 100 mls/hr Q12 IVPB Last administered on 11/04/16 08:40; Admin Dose 100 MLS/HR; Start 11/03/16 at 21:00 Zolpidem Tartrate (Ambien) 5 mg HS PRN PO INSOMNIA Last administered on 01:45; Admin Dose 5 MG; Start 11/04/16 at 01:30 Pantoprazole (Protonix Tab) 40 mg DAILY@06 PO ; Start 11/05/16 at 06:00 Assessment/Plan Additional Assessment/Plan IMPRESSION: 1. Chronic obstructive pulmonary disease exacerbation in a gentleman with severe pulmonary emphysema. 2. Likely left-sided pneumonia. In view of his recent hospitalization a month ago, must cover for healthcare-associated pathogens. 3. Possible cor pulmonale. RECOMMENDATIONS: 1. Bronchodilators with albuterol and Atrovent q. 4 hours around the clock. 2. Antibiotics with cefepime and azithro 3. Sputum culture and Gram stain. 4. taper CS 5. Continue daily Lasix. 6. Check a 2D echo to evaluate LV function as well as PA pressures. TANIYA LEYVA MD Nov 04, 2016 17:18
[2016-11-04] MEDS: TAMSULOSIN (SR) 0.4 MG CAP PO SCH (20:40)
[2016-11-05] VITALS (12 sets, daily range): BP systolic 98–132; BP diastolic 54–58; PULSE 64–80; RESP 18–22
[2016-11-05] MEDS: ALBUTEROL/IPRATROPIUM (NEB) 3 ML AMP HHN SCH ×6 (00:07→20:28)
[2016-11-05] MEDS: ZOLPIDEM 5 MG TAB PO PRN (00:22)
[2016-11-05] MEDS: FUROSEMIDE 40 MG INJ IV SCH (06:00)
[2016-11-05] MEDS: PANTOPRAZOLE (EC) 40 MG TAB PO SCH (06:29)
[2016-11-05] MEDS: CEFEPIME 2GM/50 ML (PMX) 50 ML IVPB SCH ×2 (08:11→21:33)
[2016-11-05] MEDS: METHYLPREDNISOLONE 40 MG INJ IV SCH ×2 (08:11→21:33)
[2016-11-05] MEDS: HYDROCODONE/APAP (5/325) TAB PO PRN ×2 (08:12→19:18)
[2016-11-05] MEDS: DILTIAZEM (CD) 180 MG CAP PO SCH (08:12)
[2016-11-05] MEDS: HEPARIN 5,000 UNIT/0.5 ML VIAL SC SCH ×2 (08:15→21:44)
[2016-11-05] MEDS: GUAIFENESIN LA 600 MG TABSR PO SCH ×2 (08:16→21:00)
[2016-11-05 09:38] LABS: ADD SCAN DIFF NO
[2016-11-05 09:39] LABS: ABNORMAL IP MESSAGE 1; HEMATOCRIT 30.2 % (42.0-52.0); HEMOGLOBIN 9.3 g/dl (14.0-18.0); MEAN CORPUSCULAR HEMOGLOBIN 30.1 pg (29.0-33.0); MEAN CORPUSCULAR HGB CONC 30.8 g/dl (32.0-37.0); MEAN CORPUSCULAR VOLUME 97.7 fl (82.0-101.0); MEAN PLATELET VOLUME 12.2 fl (7.4-10.4); RED BLOOD COUNT 3.09 10^6/ul (4.70-6.10); RED CELL DISTRIBUTION WIDTH 16.1 % (11.5-14.5); WHITE BLOOD COUNT 38.1 10^3/ul (4.8-10.8)
[2016-11-05 09:41] LABS: PLATELET COUNT 256 10^3/UL (140-415)
[2016-11-05 10:12] LABS: CREATININE 0.7 mg/dl (0.61-1.24)
[2016-11-05] MEDS: AZITHROMYCIN 500MG/NS (PMX) 250 ML IV SCH (10:35)
[2016-11-05 11:12] LABS: LYMPHOCYTES # 0.4 10^3/ul (0.8-2.9); MONOCYTE # 1.5 10^3/ul (0.3-0.9)
--- NOTE | 2016-11-05 13:07 | CONS ---
Date/Time of Note Date/Time of Note DATE: 11/05/16 TIME: 13:05 Consult Date/Type/Reason Admit Date/Time Nov 03, 2016 at 13:29 Initial Consult Date Type of Consultation: pulm Subjective Patient states he is feeling better today. Objective Vital Signs Date Time Temp Pulse Resp B/P Pulse Ox O2 Delivery O2 Flow Rate FiO2 11/05/16 12:32 85 18 94 Nasal Cannula 2.0 11/05/16 12:15 98.5 105/55 Intake and Output 11/04/16 11/04/16 11/05/16 15:00 23:00 07:00 Intake Total 1150 ml 950 ml 200 ml Output Total 300 ml 400 ml Balance 1150 ml 650 ml -200 ml Exam GENERAL: Chronically ill-appearing gentleman comfortable at rest VITAL SIGNS: per chart NECK: Supple. No JVD or lymphadenopathy. CARDIAC EXAM: S1, S2. No added sounds or murmurs. CHEST: clear bilaterally, No added sounds, rales or wheezes ABDOMEN: Soft, nontender. No guarding or rebound. EXTREMITIES: No cyanosis, clubbing or edema. NEUROLOGIC: Generalized weakness. No focal deficits. Results/Medications Result Diagram: 11/05/16 0910 11/05/16 0910 Results 24 hrs Laboratory Tests Test 11/05/16 09:10 White Blood Count 38.1 H Red Blood Count 3.09 #L Hemoglobin 9.3 #L Hematocrit 30.2 #L Mean Corpuscular Volume 97.7 Mean Corpuscular Hemoglobin 30.1 Mean Corpuscular Hemoglobin Concent 30.8 L Red Cell Distribution Width 16.1 H Platelet Count 256 # Mean Platelet Volume 12.2 H Neutrophils % 91.0 H Band Neutrophils % 4.0 Lymphocytes % 1.0 L Monocytes % 4.0 Neutrophils # 34.7 H Lymphocytes # 0.4 L Monocytes # 1.5 H Sodium Level 144 Potassium Level 4.0 Chloride Level 110 Carbon Dioxide Level 30 Anion Gap 8 Blood Urea Nitrogen 19 Creatinine 0.70 Glucose Level 169 Calcium Level 9.0 Medications Current Medications Diltiazem HCl (Cardizem Cd) 180 mg DAILY PO Last administered on 11/05/16t 08: 12; Admin Dose 180 MG; Start 11/04/16 at 09:00 Salmeterol Xinafoate/ Fluticasone (Advair 500/50 Diskus) 1 inh BID INH ; Start 11/03/16 at 21:00; Status Future Hold Tiotropium [place] (Spiriva) 1 inh DAILY INH ; Start 11/04/16 at 09:00; Status Future Hold Tamsulosin HCl (Flomax) 0.4 mg HS PO Last administered on 11/04/16 20:40; Admin Dose 0.4 MG; Start 11/03/16 at 21:00 Ondansetron HCl (Zofran Inj) 4 mg Q6H PRN IV NAUSEA AND/OR VOMITING; Start 03/12 at 15:30 Acetaminophen (Tylenol Tab) 650 mg Q6H PRN PO PAIN LEVEL 1-3 OR FEVER; Start at 15:30 Acetaminophen (Tylenol Supp) 650 mg Q6H PRN [place] PAIN LEVEL 1-3 OR FEVER; Start 11/03/16 at 15:30 Acetaminophen/ Hydrocodone Bitart ([place] (5/325)) 1 tab Q6H PRN PO MODERATE PAIN LEVEL 4-6 Last administered on 11/05/16 08:12; Admin Dose 1 TAB; Start 03/12 at 15:30 Acetaminophen/ Hydrocodone Bitart ([place] (5/325)) 2 tab Q6H PRN PO SEVERE PAIN LEVEL 7-10; Start 11/03/16 at 15:30 Morphine Sulfate (morphine) 2 mg Q4H PRN IV SEVERE PAIN LEVEL 7-10; Start 11/03 at 15:30 Docusate Sodium (Colace) 100 mg Q12H PRN PO CONSTIPATION; Start 11/03/16 at 15: 30 Magnesium Hydroxide (Milk Of Mag) 30 ml DAILY PRN PO CONSTIPATION; Start at 15:30 Bisacodyl (Dulcolax Supp) 10 mg DAILY PRN [place] CONSTIPATION; Start 11/03/16 at 15 :30 Heparin Sodium (Porcine) 5000 unit 5,000 unit Q12 SC Last administered on 08:15; Admin Dose 5,000 UNIT; Start 11/03/16 at 21:00 Azithromycin (Zithromax 500mg/ NS (Pmx)) 250 ml @ 250 mls/hr Q24H IV Last administered on 11/05/16 10:35; Admin Dose 250 MLS/HR; Start 11/04/16 at 10:00 Guaifenesin (Mucinex) 600 mg BID PO Last administered on 11/04/16 08:41; Admin Dose 600 MG; Start 11/03/16 at 21:00 Furosemide 40 mg 40 mg DAILY@06 IV ; Start 11/04/16 at 06:00 Cefepime HCl (Maxipime 2gm/50 ml (Pmx)) 50 ml @ 100 mls/hr Q12 IVPB Last administered on 11/05/16 08:11; Admin Dose 100 MLS/HR; Start 11/03/16 at 21:00 Zolpidem Tartrate (Ambien) 5 mg HS PRN PO INSOMNIA Last administered on 00:22; Admin Dose 5 MG; Start 11/04/16 at 01:30 Pantoprazole (Protonix Tab) 40 mg DAILY@06 PO Last administered on 11/05/16 06 :29; Admin Dose 40 MG; Start 11/05/16 at 06:00 Methylprednisolone Sodium Succinate (Solu-Medrol) 40 mg BID IV Last administered on 11/05/16 08:11; Admin Dose 40 MG; Start 11/04/16 at 21:00 Assessment/Plan Chief Complaint/Hosp Course IMPRESSION: 1. Chronic obstructive pulmonary disease exacerbation in a gentleman with severe pulmonary emphysema. 2. Likely left-sided pneumonia. In view of his recent hospitalization a month ago, must cover for healthcare-associated pathogens. 3. Possible cor pulmonale. RECOMMENDATIONS: 1. Bronchodilators with albuterol and Atrovent q. 4 hours around the clock. 2. Antibiotics with cefepime and azithro 3. Sputum culture and Gram stain. 4. taper CS 5. Continue daily Lasix. 6. Check a 2D echo to evaluate LV function as well as PA pressures. 7. CT chest noncontrast Discharge 3-4 days if clinically improving. Problems: SOY WILCOX MD, [facility] Nov 05, 2016 13:07
--- NOTE | 2016-11-05 13:10 | RADRPT ---
PROCEDURE: XR Chest. CLINICAL INDICATION: Pneumonia 71-year-old male. TECHNIQUE: Single frontal view of the chest was obtained. COMPARISON: Chest x-ray 12/04/2014 09:44 p.m. FINDINGS: The soft tissues are normal. Monitoring electrodes are draped across the chest. There are degenera tive osteophytes in the thoracic spine. The the heart is mildly enlarged but unchanged. The cardio mediastinal silhouette and hilar structures are normal. The pulmonary vasculature is diminished in t he right upper lung field secondary to a large left which appears unchanged. There is compressive a telectasis in the right lower lung field with small calcified nodules which are likely the result of granulomas. There are hematoceles in the left upper lobe. There are worsening interstitial and alveolar infiltr ates in the left lung suspicious for pneumonia. Asymmetric pulmonary edema should be considered. T here is a left-sided aorta. The costophrenic angles are normal. IMPRESSION: 1. Interval development of diffuse interstitial infiltrates in the left lung with some confluent sravanthi eolar areas in the left lower lung field since the prior study of 12/04/2014. Findings could be the result of pneumonia. 2. There are small calcified granulomas with interstitial scarring in the right lower lung field. 3. There is a large bleb in the right upper lobe which is unchanged. 4. There are small blebs in the left upper lobe. RPTAT:AAJJ Physician Pk Date Time Electronically viewed and signed by Physician Pk on 11/05/2016 13:09 /
--- NOTE | 2016-11-05 13:12 | PN ---
Date/Time of Note Date/Time of Note DATE: 11/05/16 TIME: 13:05 Assessment/Plan VTE Prophylaxis VTE Prophylaxis Intervention: heparin Lines/Catheters IV [facility]from [facility] Saline Lock Assessment/Plan Assessment/Plan 1. Sepsis secondary to hospital-acquired pneumonia. 2. Severe Endstage COPD with exacerbation. 3. Chronic BPH. 4. Leukocytosis secondary to #1. 5. Iron deficiency Anemia. 6. BC 1/2 positive likely contaminant 7, HTN: controlled on cardizem, no hx of afib PLAN: * Continue abx / bronchodilators / steroids * repeat blood cultures * IV iron replacement * Continue gentle diuresis * DVT prophylaxis: Heparin * Supportive care Subjective 24 Hr Interval Summary Free Text/Dictation patient feels better but still SOB and unable to ambulate without getting SOB Exam/Review of Systems Vital Signs Vitals Vital Signs Date Time Temp Pulse Resp B/P Pulse Ox O2 Delivery O2 Flow Rate FiO2 11/05/16 12:32 85 18 94 Nasal Cannula 2.0 11/05/16 12:15 98.5 105/55 Intake and Output 11/04/16 11/04/16 11/05/16 15:00 23:00 07:00 Intake Total 1150 ml 950 ml 200 ml Output Total 300 ml 400 ml Balance 1150 ml 650 ml -200 ml Exam Constitutional: alert, oriented, lethargic Psych: nl mood/affect Head: normocephalic Neck: supple Respiratory: wheezing, reduced air entry Cardiovascular: other Gastrointestinal: non-tender, soft Extremities: no edema 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, nl mental status, nl speech Skin: nl turgor Results Result Diagram: 11/05/16 0910 11/05/16 0910 Results 24 hrs Laboratory Tests Test 11/05/16 09:10 White Blood Count 38.1 H Red Blood Count 3.09 #L Hemoglobin 9.3 #L Hematocrit 30.2 #L Mean Corpuscular Volume 97.7 Mean Corpuscular Hemoglobin 30.1 Mean Corpuscular Hemoglobin Concent 30.8 L Red Cell Distribution Width 16.1 H Platelet Count 256 # Mean Platelet Volume 12.2 H Neutrophils % 91.0 H Band Neutrophils % 4.0 Lymphocytes % 1.0 L Monocytes % 4.0 Neutrophils # 34.7 H Lymphocytes # 0.4 L Monocytes # 1.5 H Sodium Level 144 Potassium Level 4.0 Chloride Level 110 Carbon Dioxide Level 30 Anion Gap 8 Blood Urea Nitrogen 19 Creatinine 0.70 Glucose Level 169 Calcium Level 9.0 Medications Medications Current Medications Diltiazem HCl (Cardizem Cd) 180 mg DAILY PO Last administered on 11/05/16 08: 12; Admin Dose 180 MG; Start 11/04/16 at 09:00 Salmeterol Xinafoate/ Fluticasone (Advair 500/50 Diskus) 1 inh BID INH ; Start 11/03/16 at 21:00; Status Future Hold Tiotropium [place] (Spiriva) 1 inh DAILY INH ; Start 11/04/16 at 09:00; Status Future Hold Tamsulosin HCl (Flomax) 0.4 mg HS PO Last administered on 11/04/16 20:40; Admin Dose 0.4 MG; Start 11/03/16 at 21:00 Ondansetron HCl (Zofran Inj) 4 mg Q6H PRN IV NAUSEA AND/OR VOMITING; Start 03/12 at 15:30 Acetaminophen (Tylenol Tab) 650 mg Q6H PRN PO PAIN LEVEL 1-3 OR FEVER; Start at 15:30 Acetaminophen (Tylenol Supp) 650 mg Q6H PRN [place] PAIN LEVEL 1-3 OR FEVER; Start 11/03/16 at 15:30 Acetaminophen/ Hydrocodone Bitart ([place] (5/325)) 1 tab Q6H PRN PO MODERATE PAIN LEVEL 4-6 Last administered on 11/05/16 08:12; Admin Dose 1 TAB; Start 03/12 at 15:30 Acetaminophen/ Hydrocodone Bitart ([place] (5/325)) 2 tab Q6H PRN PO SEVERE PAIN LEVEL 7-10; Start 11/03/16 at 15:30 Morphine Sulfate (morphine) 2 mg Q4H PRN IV SEVERE PAIN LEVEL 7-10; Start 11/03 at 15:30 Docusate Sodium (Colace) 100 mg Q12H PRN PO CONSTIPATION; Start 11/03/16 at 15: 30 Magnesium Hydroxide (Milk Of Mag) 30 ml DAILY PRN PO CONSTIPATION; Start at 15:30 Bisacodyl (Dulcolax Supp) 10 mg DAILY PRN [place] CONSTIPATION; Start 11/03/16 at 15 :30 Heparin Sodium (Porcine) 5000 unit 5,000 unit Q12 SC Last administered on 08:15; Admin Dose 5,000 UNIT; Start 11/03/16 at 21:00 Azithromycin (Zithromax 500mg/ NS (Pmx)) 250 ml @ 250 mls/hr Q24H IV Last administered on 11/05/16 10:35; Admin Dose 250 MLS/HR; Start 11/04/16 at 10:00 Guaifenesin (Mucinex) 600 mg BID PO Last administered on 11/04/16 08:41; Admin Dose 600 MG; Start 11/03/16 at 21:00 Furosemide 40 mg 40 mg DAILY@06 IV ; Start 11/04/16 at 06:00 Cefepime HCl (Maxipime 2gm/50 ml (Pmx)) 50 ml @ 100 mls/hr Q12 IVPB Last administered on 11/05/16 08:11; Admin Dose 100 MLS/HR; Start 11/03/16 at 21:00 Zolpidem Tartrate (Ambien) 5 mg HS PRN PO INSOMNIA Last administered on 00:22; Admin Dose 5 MG; Start 11/04/16 at 01:30 Pantoprazole (Protonix Tab) 40 mg DAILY@06 PO Last administered on 11/05/16 06 :29; Admin Dose 40 MG; Start 11/05/16 at 06:00 Methylprednisolone Sodium Succinate (Solu-Medrol) 40 mg BID IV Last administered on 11/05/16 08:11; Admin Dose 40 MG; Start 11/04/16 at 21:00 Procedures Procedures PROCEDURE: XR Chest. CLINICAL INDICATION: Shortness of breath TECHNIQUE: Single frontal chest x-ray. COMPARISON: 12/04/2014 FINDINGS: There is large bullous change seen in the right upper thorax similar previous exam. There is new left suprahilar opacity.. Increase hilar vascular and interstitial congestion is seen. . There is hyperinflation of the lungs consistent with COPD. Calcified granulomas are noted in the right lower lobe.. The cardiomediastinal silhouette is unremarkable. The osseous structures are intact. IMPRESSION: 1. New left suprahilar opacity suggestive of infiltrate. Recommend follow-up. 2. Increase hilar vascular and interstitial congestive changes. 3. Hyperinflation of lungs with large bullous change in the right upper lobe similar prior exam. RPTAT: QQ .Axel Cedillo MD, Date Time Electronically viewed and signed by .Axel Cedillo MD, on 11/03/2016 11:44 .L/ CC: STEFANIE SANTIAGO MD, [place] M. Nov 05, 2016 13:12
[2016-11-05] MEDS: SOD FERRIC GLUC COMPLX 125 MG in SOD CHLORIDE 0.9% 100 ML IVPB SCH (15:21)
[2016-11-05] MEDS: TAMSULOSIN (SR) 0.4 MG CAP PO SCH (21:34)
[2016-11-06] VITALS (12 sets, daily range): BP systolic 100–129; BP diastolic 59–76; PULSE 66–109; RESP 18–20
[2016-11-06] MEDS: ZOLPIDEM 5 MG TAB PO PRN (00:02)
[2016-11-06] MEDS: ALBUTEROL/IPRATROPIUM (NEB) 3 ML AMP HHN SCH ×6 (00:08→20:35)
--- NOTE | 2016-11-06 02:36 | RADRPT ---
PROCEDURE: CT Chest without contrast. CLINICAL INDICATION: COPD and pneumonia with concern for lung mass. TECHNIQUE: Noncontrast CT examination the chest, with axial, sagittal and coronal reformatted imag es. The total exam CTDI equals 8.76 mGy and the total exam DLP equals 384.70 mGy-cm. COMPARISON: Plain film examinations of the chest dated 11/03/2016 and 11/05/2016. CT chest dated . FINDINGS: Severe changes of emphysema in the bilateral lungs, with large bullous changes, left greater than ri ght. Dense atelectasis at the midaxillary and posterior right costophrenic angles. Dense pneumonia versus neoplasm at the posterior left lung apex and extending to the left hilum, wit h cavitary features. Overall this measures about 9 x 7 x 5 cm. Findings of left apical and upper lob e airspace disease versus neoplasm is new over interval since CT examination dated 10/07/2013. The o verall size this lesion appears somewhat decreased since plain film chest dated 11/03/2016, and is w ithout significant change since plain film chest dated today, about 10 hours ago. Findings are concerning for a neoplasm as the lesion appears to invade the middle mediastinum in the region of the AP window. If a neoplasm is present it is virtually indistinguishable from air space disease on this noncontrast examination. IV contrast enhanced CT examination of the chest would be more sensitive and specific for excluding enhancing neoplasm. These findings may represent neoplasm surrounded by pneumonia. There is dense air space disease versus metastatic neoplasm in the depende nt portions of the left upper lobe and lingula. Recommend follow-up to resolution. The mediastinum is otherwise unremarkable without evidence for additional mass or metastatic lymphad enopathy. The vascular structures of the mediastinum are normal in course and caliber. No aortic v ascular calcifications or coronary artery calcifications are present. The heart size is mildly enla rged, without evidence for pericardial thickening or effusion. The axillary regions, subpectoral regions, and supraclavicular regions are all unremarkable. The hickman rrounding chest wall is unremarkable. Imaging obtained through the upper abdomen reveals 24 mm like ly cyst in the partially visualized upper pole of the right kidney. The surrounding osseous structu res are remarkable for degenerative spondylosis of the spine. No osteolytic or osteoblastic lesion is detected. IMPRESSION: 1. Severe changes of bilateral centrolobular emphysema with large bullous changes throughout the bi lateral lungs, right greater than left. 2. Dense likely pneumonia versus neoplasm at the posterior left apex with air bronchograms. 3. Findings are concerning for neoplasm, perhaps surrounded by pneumonia, given that a portion of t his lesion appears to invade the middle mediastinum in the region of the AP window. 4. Region of dense pneumonia versus neoplasm demonstrates cavitary features. 5. Airspace versus metastatic neoplasm disease at the posterior dependent left upper lobe and lingul a. 6. Consider IV contrast enhanced examination to exclude enhancing neoplasm. RPTAT: UU Physician Niya Date Time Electronically viewed and signed by Physician Niya on 11/06/2016 02:36 RS/
[2016-11-06] MEDS: FUROSEMIDE 40 MG INJ IV SCH (06:00)
[2016-11-06] MEDS: PANTOPRAZOLE (EC) 40 MG TAB PO SCH (06:27)
[2016-11-06 06:50] LABS: WHITE BLOOD COUNT 35.3 10^3/ul (4.8-10.8)
[2016-11-06 08:06] LABS: ADD SCAN DIFF NO
[2016-11-06 08:18] LABS: HEMATOCRIT 34.1 % (42.0-52.0); HEMOGLOBIN 10.3 g/dl (14.0-18.0); MEAN CORPUSCULAR HEMOGLOBIN 29.5 pg (29.0-33.0); MEAN CORPUSCULAR HGB CONC 30.2 g/dl (32.0-37.0); MEAN CORPUSCULAR VOLUME 97.7 fl (82.0-101.0); MEAN PLATELET VOLUME 11.5 fl (7.4-10.4); PLATELET COUNT 318 10^3/UL (140-415); RED BLOOD COUNT 3.49 10^6/ul (4.70-6.10); RED CELL DISTRIBUTION WIDTH 16.7 % (11.5-14.5); WHITE BLOOD COUNT 39.7 10^3/ul (4.8-10.8)
[2016-11-06 08:19] LABS: ABNORMAL IP MESSAGE 1
[2016-11-06 08:42] LABS: CALCIUM 9.6 mg/dl (8.4-10.2); CREATININE 0.73 mg/dl (0.61-1.24); MAGNESIUM 2.3 mg/dl (1.7-2.5)
[2016-11-06] MEDS: GUAIFENESIN LA 600 MG TABSR PO SCH ×2 (09:00→21:00)
[2016-11-06] MEDS: CEFEPIME 2GM/50 ML (PMX) 50 ML IVPB SCH ×2 (09:10→20:47)
[2016-11-06] MEDS: METHYLPREDNISOLONE 40 MG INJ IV SCH ×2 (09:10→20:46)
[2016-11-06] MEDS: HYDROCODONE/APAP (5/325) TAB PO PRN (09:13)
[2016-11-06] MEDS: DILTIAZEM (CD) 180 MG CAP PO SCH (09:13)
[2016-11-06] MEDS: HEPARIN 5,000 UNIT/0.5 ML VIAL SC SCH ×2 (09:30→21:01)
[2016-11-06] MEDS: AZITHROMYCIN 500MG/NS (PMX) 250 ML IV SCH (09:59)
[2016-11-06 10:40] LABS: LYMPHOCYTES # 1.6 10^3/ul (0.8-2.9); MONOCYTE # 1.6 10^3/ul (0.3-0.9); MYELOCYTES # 1.2; NEUTROPHIL # 34.1 10^3/ul (1.6-7.5)
[2016-11-06 10:42] LABS: MYELOCYTES # 0.8; NEUTROPHIL # 33.9 10^3/ul (1.6-7.5)
--- NOTE | 2016-11-06 11:23 | CONS ---
Date/Time of Note Date/Time of Note DATE: 11/06/16 TIME: 11:22 Consult Date/Type/Reason Admit Date/Time Nov 03, 2016 at 13:29 Type of Consultation: pulm Subjective Patient states he is breathing better this morning still has exertional dyspnea. Objective Vital Signs Date Time Temp Pulse Resp B/P Pulse Ox O2 Delivery O2 Flow Rate FiO2 11/06/16 08:59 95 15 95 Nasal Cannula 2.0 11/06/16 08:00 98.2 100/60 Intake and Output 11/05/16 11/05/16 11/06/16 15:00 23:00 07:00 Intake Total 300 ml 1250 ml 125 ml Output Total 500 ml Balance 300 ml 750 ml 125 ml Exam GENERAL: Chronically ill-appearing gentleman comfortable at rest VITAL SIGNS: per chart NECK: Supple. No JVD or lymphadenopathy. CARDIAC EXAM: S1, S2. No added sounds or murmurs. CHEST: clear bilaterally, No added sounds, rales or wheezes ABDOMEN: Soft, nontender. No guarding or rebound. EXTREMITIES: No cyanosis, clubbing or edema. NEUROLOGIC: Generalized weakness. No focal deficits. Results/Medications Result Diagram: 11/06/1671411/06/1615 Results 24 hrs Laboratory Tests Test 11/06/16 07:15 White Blood Count 39.7 H Red Blood Count 3.49 L Hemoglobin 10.3 L Hematocrit 34.1 L Mean Corpuscular Volume 97.7 Mean Corpuscular Hemoglobin 29.5 Mean Corpuscular Hemoglobin Concent 30.2 L Red Cell Distribution Width 16.7 H Platelet Count 318 # Mean Platelet Volume 11.5 H Neutrophils % 86.0 H Band Neutrophils % 3.0 Lymphocytes % 4.0 L Monocytes % 4.0 Myelocytes % 3.0 H Nucleated Red Blood Cells % 1.0 H Neutrophils # 34.1 H Lymphocytes # 1.6 Monocytes # 1.6 H Myelocytes # 1.2 Sodium Level 147 H Potassium Level 4.0 Chloride Level 109 Carbon Dioxide Level 28 Anion Gap 14 Blood Urea Nitrogen 21 H Creatinine 0.73 Glucose Level 138 Calcium Level 9.6 Magnesium Level 2.3 Medications Current Medications Diltiazem HCl (Cardizem Cd) 180 mg DAILY PO Last administered on 11/06/16t 09: 13; Admin Dose 180 MG; Start 11/04/16 at 09:00 Salmeterol Xinafoate/ Fluticasone (Advair 500/50 Diskus) 1 inh BID INH ; Start 11/03/16 at 21:00; Status Future Hold Tiotropium [place] (Spiriva) 1 inh DAILY INH ; Start 11/04/16 at 09:00; Status Future Hold Tamsulosin HCl (Flomax) 0.4 mg HS PO Last administered on 11/05/16 21:34; Admin Dose 0.4 MG; Start 11/03/16 at 21:00 Ondansetron HCl (Zofran Inj) 4 mg Q6H PRN IV NAUSEA AND/OR VOMITING; Start 03/12 at 15:30 Acetaminophen (Tylenol Tab) 650 mg Q6H PRN PO PAIN LEVEL 1-3 OR FEVER; Start at 15:30 Acetaminophen (Tylenol Supp) 650 mg Q6H PRN [place] PAIN LEVEL 1-3 OR FEVER; Start 11/03/16 at 15:30 Acetaminophen/ Hydrocodone Bitart ([place] (5/325)) 1 tab Q6H PRN PO MODERATE PAIN LEVEL 4-6 Last administered on 11/06/16 09:13; Admin Dose 1 TAB; Start 03/12 at 15:30 Acetaminophen/ Hydrocodone Bitart ([place] (5/325)) 2 tab Q6H PRN PO SEVERE PAIN LEVEL 7-10; Start 11/03/16 at 15:30 Morphine Sulfate (morphine) 2 mg Q4H PRN IV SEVERE PAIN LEVEL 7-10; Start 11/03 at 15:30 Docusate Sodium (Colace) 100 mg Q12H PRN PO CONSTIPATION; Start 11/03/16 at 15: 30 Magnesium Hydroxide (Milk Of Mag) 30 ml DAILY PRN PO CONSTIPATION; Start at 15:30 Bisacodyl (Dulcolax Supp) 10 mg DAILY PRN [place] CONSTIPATION; Start 11/03/16 at 15 :30 Heparin Sodium (Porcine) 5000 unit 5,000 unit Q12 SC Last administered on 09:30; Admin Dose 5,000 UNIT; Start 11/03/16 at 21:00 Azithromycin (Zithromax 500mg/ NS (Pmx)) 250 ml @ 250 mls/hr Q24H IV Last administered on 11/06/16 09:59; Admin Dose 250 MLS/HR; Start 11/04/16 at 10:00 Guaifenesin (Mucinex) 600 mg BID PO Last administered on 11/04/16 08:41; Admin Dose 600 MG; Start 11/03/16 at 21:00 Furosemide 40 mg 40 mg DAILY@06 IV ; Start 11/04/16 at 06:00 Cefepime HCl (Maxipime 2gm/50 ml (Pmx)) 50 ml @ 100 mls/hr Q12 IVPB Last administered on 11/06/16 09:10; Admin Dose 100 MLS/HR; Start 11/03/16 at 21:00 Zolpidem Tartrate (Ambien) 5 mg HS PRN PO INSOMNIA Last administered on 00:02; Admin Dose 5 MG; Start 11/04/16 at 01:30 Pantoprazole (Protonix Tab) 40 mg DAILY@06 PO Last administered on 11/06/16 06 :27; Admin Dose 40 MG; Start 11/05/16 at 06:00 Methylprednisolone Sodium Succinate 40 mg 40 mg BID IV Last administered on 09:10; Admin Dose 40 MG; Start 11/04/16 at 21:00 Ferric Sodium Gluconate Complex/ Sodium Chloride (Ferrlecit/NS) 110 ml @ 100 mls/hr Q24H IVPB Last administered on 11/05/16 15:21; Admin Dose 100 MLS/HR; Start 11/05/16 at 13:30; Stop 11/07/16 at 14:35 Assessment/Plan Chief Complaint/Hosp Course IMPRESSION: 1. Acute on chronic chronic obstructive pulmonary disease exacerbation in a gentleman with severe pulmonary emphysema. 2. Likely left-sided pneumonia. In view of his recent hospitalization a month ago, must cover for healthcare-associated pathogens. 3. Possible cor pulmonale. RECOMMENDATIONS: 1. Continue bronchodilators 2. Antibiotics with cefepime and azithro 3. Sputum culture and Gram stain. 4. taper CS 5. Continue daily Lasix. 6. CT chest noted dense left apex pneumonia with air bronchograms. Severe underlying emphysema. If infiltrate does not improve patient may require bronchoscopy to exclude bronchoalveolar carcinoma. Discharge 3-4 days if clinically improving. Problems: SOY WILCOX MD, [facility] Nov 06, 2016 11:23
[2016-11-06] MEDS ORDERED: VANCOMYCIN IV PER PHARMACY XX SCH (11:30)
--- NOTE | 2016-11-06 12:51 | PN ---
Date/Time of Note Date/Time of Note DATE: 11/06/16 TIME: 12:49 Assessment/Plan VTE Prophylaxis VTE Prophylaxis Intervention: heparin Lines/Catheters IV Catheter Type (from Nrs): Saline Lock Assessment/Plan Assessment/Plan 1. Sepsis secondary to Health care associated pneumonia. 2. Severe Emphysema with exacerbation 3. Chronic BPH. 4. Possible lung mass and ?metastases 5. Iron deficiency Anemia. 6. BC 1/2 positive likely contaminant 7, HTN: controlled on cardizem, no hx of afib PLAN: * Continue abx / bronchodilators / steroids * CT findings and pulm recs noted * CT with IV contrast * repeat blood cultures * IV iron replacement * Continue gentle diuresis * DVT prophylaxis: Heparin * Supportive care Subjective 24 Hr Interval Summary Free Text/Dictation patient seen still with exertional dyspnea Exam/Review of Systems Vital Signs Vitals Vital Signs Date Time Temp Pulse Resp B/P Pulse Ox O2 Delivery O2 Flow Rate FiO2 11/06/16 11:42 98.0 87 18 117/59 96 11/06/16 09:10 Nasal Cannula 2.0 Intake and Output 11/05/16 11/05/16 11/06/16 15:00 23:00 07:00 Intake Total 300 ml 1250 ml 125 ml Output Total 500 ml Balance 300 ml 750 ml 125 ml Exam Constitutional: alert, oriented, lethargic Psych: nl mood/affect Head: normocephalic Neck: supple Respiratory: wheezing, reduced air entry Cardiovascular: other Gastrointestinal: non-tender, soft Extremities: no edema 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, nl mental status, nl speech Skin: nl turgor Results Result Diagram: 11/06/16 0715 11/06/16 0715 Results 24 hrs Laboratory Tests Test 11/06/16 07:15 White Blood Count 39.7 H Red Blood Count 3.49 L Hemoglobin 10.3 L Hematocrit 34.1 L Mean Corpuscular Volume 97.7 Mean Corpuscular Hemoglobin 29.5 Mean Corpuscular Hemoglobin Concent 30.2 L Red Cell Distribution Width 16.7 H Platelet Count 318 # Mean Platelet Volume 11.5 H Neutrophils % 86.0 H Band Neutrophils % 3.0 Lymphocytes % 4.0 L Monocytes % 4.0 Myelocytes % 3.0 H Nucleated Red Blood Cells % 1.0 H Neutrophils # 34.1 H Lymphocytes # 1.6 Monocytes # 1.6 H Myelocytes # 1.2 Sodium Level 147 H Potassium Level 4.0 Chloride Level 109 Carbon Dioxide Level 28 Anion Gap 14 Blood Urea Nitrogen 21 H Creatinine 0.73 Glucose Level 138 Calcium Level 9.6 Magnesium Level 2.3 Medications Medications Current Medications Diltiazem HCl (Cardizem Cd) 180 mg DAILY PO Last administered on 11/06/16 09: 13; Admin Dose 180 MG; Start 11/04/16 at 09:00 Salmeterol Xinafoate/ Fluticasone (Advair 500/50 Diskus) 1 inh BID INH ; Start 11/03/16 at 21:00; Status Future Hold Tiotropium [place] (Spiriva) 1 inh DAILY INH ; Start 11/04/16 at 09:00; Status Future Hold Tamsulosin HCl (Flomax) 0.4 mg HS PO Last administered on 11/05/16 21:34; Admin Dose 0.4 MG; Start 11/03/16 at 21:00 Ondansetron HCl (Zofran Inj) 4 mg Q6H PRN IV NAUSEA AND/OR VOMITING; Start 03/12 at 15:30 Acetaminophen (Tylenol Tab) 650 mg Q6H PRN PO PAIN LEVEL 1-3 OR FEVER; Start at 15:30 Acetaminophen (Tylenol Supp) 650 mg Q6H PRN [place] PAIN LEVEL 1-3 OR FEVER; Start 11/03/16 at 15:30 Acetaminophen/ Hydrocodone Bitart ([place] (5/325)) 1 tab Q6H PRN PO MODERATE PAIN LEVEL 4-6 Last administered on 11/06/16 09:13; Admin Dose 1 TAB; Start 03/12 at 15:30 Acetaminophen/ Hydrocodone Bitart ([place] (5/325)) 2 tab Q6H PRN PO SEVERE PAIN LEVEL 7-10; Start 11/03/16 at 15:30 Morphine Sulfate (morphine) 2 mg Q4H PRN IV SEVERE PAIN LEVEL 7-10; Start 11/03 at 15:30 Docusate Sodium (Colace) 100 mg Q12H PRN PO CONSTIPATION; Start 11/03/16 at 15: 30 Magnesium Hydroxide (Milk Of Mag) 30 ml DAILY PRN PO CONSTIPATION; Start at 15:30 Bisacodyl (Dulcolax Supp) 10 mg DAILY PRN [place] CONSTIPATION; Start 11/03/16 at 15 :30 Heparin Sodium (Porcine) 5000 unit 5,000 unit Q12 SC Last administered on 09:30; Admin Dose 5,000 UNIT; Start 11/03/16 at 21:00 Azithromycin (Zithromax 500mg/ NS (Pmx)) 250 ml @ 250 mls/hr Q24H IV Last administered on 11/06/16 09:59; Admin Dose 250 MLS/HR; Start 11/04/16 at 10:00 Guaifenesin (Mucinex) 600 mg BID PO Last administered on 11/04/16 08:41; Admin Dose 600 MG; Start 11/03/16 at 21:00 Furosemide 40 mg 40 mg DAILY@06 IV ; Start 11/04/16 at 06:00 Cefepime HCl (Maxipime 2gm/50 ml (Pmx)) 50 ml @ 100 mls/hr Q12 IVPB Last administered on 11/06/16 09:10; Admin Dose 100 MLS/HR; Start 11/03/16 at 21:00 Zolpidem Tartrate (Ambien) 5 mg HS PRN PO INSOMNIA Last administered on 00:02; Admin Dose 5 MG; Start 11/04/16 at 01:30 Pantoprazole (Protonix Tab) 40 mg DAILY@06 PO Last administered on 11/06/16 06 :27; Admin Dose 40 MG; Start 11/05/16 at 06:00 Methylprednisolone Sodium Succinate 40 mg 40 mg BID IV Last administered on 09:10; Admin Dose 40 MG; Start 11/04/16 at 21:00 Ferric Sodium Gluconate Complex 125 mg/Sodium Chloride 110 ml @ 100 mls/hr Q24H IVPB Last administered on 11/05/16 15:21; Admin Dose 100 MLS/HR; Start at 13:30; Stop 11/07/16 at 14:35 Vancomycin HCl 1.5 gm/Sodium Chloride 250 ml @ 83.333 mls/ hr ONCE ONCE IVPB ; Start 11/06/16 at 14:00; Stop 11/06/16 at 16:59 Vancomycin HCl (Vancocin) 250 ml @ 125 mls/hr Q12H IVPB ; Start 11/07/16 at 02: 00 Procedures Procedures PROCEDURE: CT Chest without contrast. CLINICAL INDICATION: COPD and pneumonia with concern for lung mass. TECHNIQUE: Noncontrast CT examination the chest, with axial, sagittal and coronal reformatted images. The total exam CTDI equals 8.76 mGy and the total exam DLP equals 384.70 mGy-cm. COMPARISON: Plain film examinations of the chest dated 11/03/[address] chest dated 10/07/2013. FINDINGS: Severe changes of emphysema in the bilateral lungs, with large bullous changes, left greater than right. Dense atelectasis at the midaxillary and posterior right costophrenic angles. Dense pneumonia versus neoplasm at the posterior left lung apex and extending to the left hilum, with cavitary features. Overall this measures about 9 x 7 x 5 cm. Findings of left apical and upper lobe airspace disease versus neoplasm is new over interval since CT examination dated 10/07/2013. The overall size this lesion appears somewhat decreased since plain film chest dated 11/03/2016, and is without significant change since plain film chest dated today, about 10 hours ago. Findings are concerning for a neoplasm as the lesion appears to invade the middle mediastinum in the region of the AP window. If a neoplasm is present it is virtually indistinguishable from air space disease on this noncontrast examination. IV contrast enhanced CT examination of the chest would be more sensitive and specific for excluding enhancing neoplasm. These findings may represent neoplasm surrounded by pneumonia. There is dense air space disease versus metastatic neoplasm in the dependent portions of the left upper lobe and lingula. Recommend follow-up to resolution. The mediastinum is otherwise unremarkable without evidence for additional mass or metastatic lymphadenopathy. The vascular structures of the mediastinum are normal in course and caliber. No aortic vascular calcifications or coronary artery calcifications are present. The heart size is mildly enlarged, without evidence for pericardial thickening or effusion. The axillary regions, subpectoral regions, and supraclavicular regions are all unremarkable. The surrounding chest wall is unremarkable. Imaging obtained through the upper abdomen reveals 24 mm likely cyst in the partially visualized upper pole of the right kidney. The surrounding osseous structures are remarkable for degenerative spondylosis of the spine. No osteolytic or osteoblastic lesion is detected. IMPRESSION: 1. Severe changes of bilateral centrolobular emphysema with large bullous changes throughout the bilateral lungs, right greater than left. 2. Dense likely pneumonia versus neoplasm at the posterior left apex with air bronchograms. 3. Findings are concerning for neoplasm, perhaps surrounded by pneumonia, given that a portion of this lesion appears to invade the middle mediastinum in the region of the AP window. 4. Region of dense pneumonia versus neoplasm demonstrates cavitary features. 5. Airspace versus metastatic neoplasm disease at the posterior dependent left upper lobe and lingula. 6. Consider IV contrast enhanced examination to exclude enhancing neoplasm. RPTAT: [facility] Physician Niya Date Time Electronically viewed and signed by Physician Niya on 11/06/2016 02:36 ABIGAIL FLORES Nov 06, 2016 12:50
[2016-11-06] MEDS: SOD FERRIC GLUC COMPLX 125 MG in SOD CHLORIDE 0.9% 100 ML IVPB SCH (13:45)
[2016-11-06] MEDS ORDERED: VANCOMYCIN 1.5 GM in SOD CHLORIDE 0.9% 250 ML IVPB ONE (14:00)
[2016-11-06] MEDS ORDERED: SOD CHLORIDE 0.9% 100 ML ONE (18:55)
[2016-11-06] MEDS ORDERED: IOHEXOL 300MG/ML 150 ML BTL ONE (18:55)
[2016-11-06] MEDS: TAMSULOSIN (SR) 0.4 MG CAP PO SCH (20:46)
[2016-11-07] VITALS (11 sets, daily range): BP systolic 114–140; BP diastolic 61–70; PULSE 64–86; RESP 18
[2016-11-07] MEDS: ZOLPIDEM 5 MG TAB PO PRN (00:09)
[2016-11-07] MEDS: ALBUTEROL/IPRATROPIUM (NEB) 3 ML AMP HHN SCH ×6 (00:25→20:33)
[2016-11-07] MEDS: VANCOMYCIN 1 GM in NS 250 ML IVPB SCH ×2 (02:14→15:48)
[2016-11-07] MEDS: FUROSEMIDE 40 MG INJ IV SCH (06:00)
[2016-11-07] MEDS: PANTOPRAZOLE (EC) 40 MG TAB PO SCH (06:15)
[2016-11-07] MEDS: CEFEPIME 2GM/50 ML (PMX) 50 ML IVPB SCH ×2 (07:57→21:51)
[2016-11-07] MEDS: METHYLPREDNISOLONE 40 MG INJ IV SCH ×2 (07:57→21:51)
[2016-11-07] MEDS: DILTIAZEM (CD) 180 MG CAP PO SCH (07:58)
[2016-11-07] MEDS: HYDROCODONE/APAP (5/325) TAB PO PRN ×2 (07:59→14:33)
[2016-11-07] MEDS: GUAIFENESIN LA 600 MG TABSR PO SCH ×2 (09:00→21:51)
[2016-11-07] MEDS: HEPARIN 5,000 UNIT/0.5 ML VIAL SC SCH ×2 (09:01→22:07)
--- NOTE | 2016-11-07 10:08 | RADRPT ---
PROCEDURE: CT Chest with contrast. CLINICAL INDICATION: Left lung consolidation TECHNIQUE: CT of the chest was performed on a multi-detector scanner following the uncomplicated I V administration of 80 cc of Omnipaque 300. Coronal and sagittal images were reformatted from the a xial data set. One or more of the following dose reduction techniques were used: automated exposure control, adjustment of the mA and/or kV according to patient size, use of iterative reconstruction technique. CTDI = 9.23 mGy. DLP = 412.84 mGy-cm. COMPARISON: CT, 11/05/2016 FINDINGS: There is severe pulmonary emphysema, with large biapical bullae noted, greater on the right. Small bilateral pleural effusions are present, with associated bibasilar atelectasis. Focal consolidation is again noted posteriorly in the left upper lobe, concerning for pneumonia. No pneumothorax or pu lmonary edema is identified. The central tracheobronchial tree is clear. No evidence of pulmonary nodule or mass is identified. The heart size is normal without pericardial effusion. There is no thoracic aortic aneurysm or diss ection. No mediastinal, hilar, axillary or supraclavicular lymphadenopathy is identified. Nonobstructive right renal calculus is noted, without evidence for obstructive uropathy. Visualized portions of the upper abdomen are otherwise unremarkable. The surrounding osseous structures are r emarkable for degenerative spondylosis of the spine. No osteolytic or osteoblastic lesion is detect ed. IMPRESSION: 1. Focal pulmonary consolidation is again noted posteriorly in the left upper lobe, concerning for pneumonia. 2. There is severe pulmonary emphysema, with large biapical bullae noted. 3. Small bilateral pleural effusions are present, with associated bibasilar atelectasis. 4. No gross evidence of neoplasm, mass or lymphadenopathy is identified. 5. Small nonobstructive right renal calculus is seen, without evidence of obstructive uropathy. RPTAT: HDWR .Carlos Frank MD, MD Date Time Electronically viewed and signed by .Carlos Frank MD, MD on 11/07/2016 10:08 .R/
--- NOTE | 2016-11-07 10:10 | RADRPT ---
PROCEDURE: XR Chest. CLINICAL INDICATION: Pneumonia, CHF TECHNIQUE: Single frontal chest x-ray. COMPARISON: 11/05/2016 FINDINGS: Again noted are hyperinflated lungs, suggesting COPD, with likely bullae at the right lung apex. Fo nila increased opacity is again seen in the left upper lung, concerning for pneumonia. No pneumoth orax or significant pleural effusion is identified. Cardiomediastinal silhouette is within normal l imits. The osseous structures are unremarkable. IMPRESSION: 1. Focally increased opacity is again seen in the left upper lung, concerning for pneumonia, grossl y stable. 2. Probable COPD, with likely bullae at the right lung apex. 3. No significant interval change. RPTAT: HDWR .Carlos Frank MD, Date Time Electronically viewed and signed by .Carlos Frank MD, on 11/07/2016 10:10 .R/
[2016-11-07 10:33] LABS: ADD SCAN DIFF NO
[2016-11-07 10:48] LABS: ABNORMAL IP MESSAGE 1; BASOPHILS % 0.1 % (0.0-2.0); EOSINOPHILS % 0.1 % (0.0-7.0); HEMATOCRIT 31.1 % (42.0-52.0); HEMOGLOBIN 9.3 g/dl (14.0-18.0); LYMPHOCYTES # 0.9 10^3/ul (0.8-2.9); LYMPHOCYTES % 2.5 % (15.0-51.0); MEAN CORPUSCULAR HEMOGLOBIN 28.9 pg (29.0-33.0); MEAN CORPUSCULAR HGB CONC 29.9 g/dl (32.0-37.0); MEAN CORPUSCULAR VOLUME 96.6 fl (82.0-101.0); MONOCYTES % 2.9 % (0.0-11.0); NEUTROPHIL # 30.4 10^3/ul (1.6-7.5); NEUTROPHILS % 87.3 % (39.0-77.0); NUCLEATED RED BLOOD CELLS% 0.1 /100WBC (0.0-0.0); PLATELET COUNT 258 10^3/UL (140-415); RED BLOOD COUNT 3.22 10^6/ul (4.70-6.10); RED CELL DISTRIBUTION WIDTH 16.2 % (11.5-14.5); WHITE BLOOD COUNT 34.8 10^3/ul (4.8-10.8)
[2016-11-07 11:23] LABS: CALCIUM 8.7 mg/dl (8.4-10.2); CREATININE 0.67 mg/dl (0.61-1.24); POTASSIUM 3.6 mmol/L (3.5-5.1)
[2016-11-07] MEDS: AZITHROMYCIN 500MG/NS (PMX) 250 ML IV SCH ×2 (11:30→12:25)
--- NOTE | 2016-11-07 13:53 | PN ---
DATE: 11/07/2016 SUBJECTIVE: The patient Diloretta remains relatively stable. Still has shortness of breath on exer tion, although states he is feeling somewhat better. PHYSICAL EXAMINATION: VITAL SIGNS: Temperature 98, pulse 84, blood pressure 122/61, O2 saturation 96% on 2 liters. NECK: Supple. No JVD or lymphadenopathy. CARDIAC: S1, S2, no added sounds or murmurs. CHEST: Diminished air entry bilaterally. Coarse rhonchi. ABDOMEN: Soft, nontender. No guarding or rebound. EXTREMITIES: No cyanosis, clubbing, or edema. NEUROLOGIC: Generalized weakness. LABORATORY DATA: White count 34.8, hemoglobin 9.3, platelets 258. BUN 20, creatinine 0.67. Chest x-ray was reviewed, shows increasing opacification left upper lobe consistent with pneumonia. IMPRESSION: 1. Acute hypoxemic respiratory failure. 2. Advanced chronic obstructive pulmonary disease. 3. Community-acquired pneumonia versus atypical organism versus cryptogenic organizing pneumonia. Differential does also include bronchoalveolar carcinoma. PLAN: 1. Continue steroids. 2. Continue antibiotics. 3. Consider ID consult. 4. DVT and GI prophylaxis. 5. Will require bronchoscopy if infiltrate and the leukocytosis does not improve. Dictated By: SOY EATON/MERCED Conf#: [id number] DID#: [id number]
[2016-11-07] MEDS: SOD FERRIC GLUC COMPLX 125 MG in SOD CHLORIDE 0.9% 100 ML IVPB SCH (14:33)
[2016-11-07] MEDS: TAMSULOSIN (SR) 0.4 MG CAP PO SCH (21:51)
[2016-11-08] VITALS (11 sets, daily range): BP systolic 123–148; BP diastolic 66–78; PULSE 68–95; RESP 17–18
[2016-11-08] MEDS: ALBUTEROL/IPRATROPIUM (NEB) 3 ML AMP HHN SCH ×6 (00:06→20:16)
[2016-11-08] MEDS: ZOLPIDEM 5 MG TAB PO PRN (00:32)
[2016-11-08] MEDS: VANCOMYCIN 1 GM in NS 250 ML IVPB SCH ×2 (03:03→12:39)
[2016-11-08] MEDS: FUROSEMIDE 40 MG INJ IV SCH (05:31)
[2016-11-08] MEDS: PANTOPRAZOLE (EC) 40 MG TAB PO SCH (05:33)
[2016-11-08] MEDS: HYDROCODONE/APAP (5/325) TAB PO PRN (05:35)
[2016-11-08] MEDS: GUAIFENESIN LA 600 MG TABSR PO SCH ×2 (09:00→21:00)
[2016-11-08] MEDS: METHYLPREDNISOLONE 40 MG INJ IV SCH ×2 (09:22→22:36)
[2016-11-08] MEDS: DILTIAZEM (CD) 180 MG CAP PO SCH (09:23)
[2016-11-08] MEDS: HEPARIN 5,000 UNIT/0.5 ML VIAL SC SCH ×2 (09:28→22:37)
[2016-11-08] MEDS: AZITHROMYCIN 500MG/NS (PMX) 250 ML IV SCH (09:30)
[2016-11-08] MEDS: CEFEPIME 2GM/50 ML (PMX) 50 ML IVPB SCH ×2 (09:30→22:47)
[2016-11-08 10:01] LABS: ADD SCAN DIFF NO
[2016-11-08 10:08] LABS: ABNORMAL IP MESSAGE 1; BASOPHIL # 0.1 10^3/ul (0.0-0.1); BASOPHILS % 0.3 % (0.0-2.0); HEMATOCRIT 31.7 % (42.0-52.0); HEMOGLOBIN 10.1 g/dl (14.0-18.0); LYMPHOCYTES # 1.2 10^3/ul (0.8-2.9); LYMPHOCYTES % 3.1 % (15.0-51.0); MEAN CORPUSCULAR HEMOGLOBIN 30.1 pg (29.0-33.0); MEAN CORPUSCULAR HGB CONC 31.9 g/dl (32.0-37.0); MEAN CORPUSCULAR VOLUME 94.6 fl (82.0-101.0); MEAN PLATELET VOLUME 11.2 fl (7.4-10.4); MONOCYTE # 1.3 10^3/ul (0.3-0.9); MONOCYTES % 3.4 % (0.0-11.0); NEUTROPHIL # 31.2 10^3/ul (1.6-7.5); NUCLEATED RED BLOOD CELLS # 0.1 10^3/ul (0.0-0.0); NUCLEATED RED BLOOD CELLS% 0.3 /100WBC (0.0-0.0); PLATELET COUNT 310 10^3/UL (140-415); RED BLOOD COUNT 3.35 10^6/ul (4.70-6.10); RED CELL DISTRIBUTION WIDTH 16.1 % (11.5-14.5); WHITE BLOOD COUNT 37.5 10^3/ul (4.8-10.8)
[2016-11-08 10:31] LABS: CALCIUM 8.7 mg/dl (8.4-10.2); CREATININE 0.72 mg/dl (0.61-1.24)
--- NOTE | 2016-11-08 11:12 | PN ---
DATE: 11/08/2016 SUBJECTIVE: Mr. Hopson is slowly improving. Still has significant wheezing and dyspnea on exert ion. PHYSICAL EXAMINATION:. VITAL SIGNS: Temperature 97, pulse 84, blood pressure 137/76, O2 saturation 96% on 2 L nasal cannul a. NECK: Supple. No JVD or lymphadenopathy. CARDIAC: S1, S2, no added sounds or murmurs. CHEST: Diminished air entry bilaterally. ABDOMEN: Soft, nontender. No guarding or rebound. EXTREMITIES: No cyanosis, clubbing, edema. NEUROLOGIC: Generalized weakness. LABORATORY DATA: White count 37.5, hemoglobin 10.1, platelets of 310, chemistry within normal limit s. IMPRESSION AND PLAN: 1. Chronic obstructive pulmonary disease with acute exacerbation. 2. Severe emphysematous chronic obstructive pulmonary disease. 3. Acute on chronic hypoxemic respiratory failure. 4. Persistent leukocytosis with left upper lobe infiltrate. 5. Significant deconditioning. PLAN: 1. Continue current steroids. 2. Continue bronchodilators. 3. Continue his vancomycin, cefepime and azithromycin, but still has persistent leukocytosis. PLAN: 1. ID consult. 2. Continue steroids. 3. Pulmonary toilet. 4. May require bronchoscopy if infiltrate does not improve and leukocytosis persists. Dictated By: SOY EATON/MERCED Conf#: [id number] DID#: [id number]
--- NOTE | 2016-11-08 12:16 | PN ---
Date/Time of Note Date/Time of Note DATE: 11/08/16 TIME: 12:10 Assessment/Plan VTE Prophylaxis VTE Prophylaxis Intervention: heparin Lines/Catheters IV Catheter Type (from [facility]): Peripheral IV Assessment/Plan Assessment/Plan 1. Sepsis secondary to Health care associated pneumonia. 2. Severe Emphysema with exacerbation and biapical bullae 3. Chronic BPH. 4. No lung mass on CT with contrast 5. Iron deficiency Anemia. 6. BC 1/2 positive likely contaminant 7, HTN: controlled on cardizem, no hx of afib 8. Leucocytosis: possibly a component of steroid PLAN: * Continue abx / bronchodilators / steroids / pulm managing * CT findings and pulm recs noted / may need bronchoscopy per pulm if no improvement in the next few days / ID consult * repeat blood cultures negative * IV iron replacement * Continue gentle diuresis * DVT prophylaxis: Heparin * Supportive care Subjective 24 Hr Interval Summary Free Text/Dictation patient still feeling sick WBC count trending up Exam/Review of Systems Vital Signs Vitals Vital Signs Date Time Temp Pulse Resp B/P Pulse Ox O2 Delivery O2 Flow Rate FiO2 11/08/16 12:05 81 11/08/16 11:45 97.5 18 131/66 96 11/08/16 09:16 Nasal Cannula 2.0 Intake and Output 11/07/16 11/07/16 11/08/16 14:59 22:59 06:59 Intake Total 300 ml 1000 ml Output Total 300 ml Balance 300 ml 1000 ml -300 ml Exam Constitutional: alert, oriented, lethargic Psych: nl mood/affect Head: normocephalic Neck: supple Respiratory: wheezing, reduced air entry Cardiovascular: other Gastrointestinal: non-tender, soft Extremities: no edema Neurological: BREAKER OILER II-XII intact, nl mental status, nl speech Skin: nl turgor Results Result Diagram: 11/08/16 0937 11/08/16 0937 Results 24 hrs Laboratory Tests Test 11/08/16 01:05 11/08/16 09:37 Vancomycin Level Trough 17.6 White Blood Count 37.5 H Red Blood Count 3.35 L Hemoglobin 10.1 L Hematocrit 31.7 L Mean Corpuscular Volume 94.6 Mean Corpuscular Hemoglobin 30.1 Mean Corpuscular Hemoglobin Concent 31.9 L Red Cell Distribution Width 16.1 H Platelet Count 310 # Mean Platelet Volume 11.2 H Neutrophils % 83.0 H Lymphocytes % 3.1 L Monocytes % 3.4 Eosinophils % 0.0 Basophils % 0.3 Nucleated Red Blood Cells % 0.3 H Neutrophils # 31.2 H Lymphocytes # 1.2 Monocytes # 1.3 H Eosinophils # 0.0 Basophils # 0.1 Nucleated Red Blood Cells # 0.1 H Sodium Level 144 Potassium Level 4.0 Chloride Level 107 Carbon Dioxide Level 31 Anion Gap 10 Blood Urea Nitrogen 20 Creatinine 0.72 Glucose Level 108 Calcium Level 8.7 Medications Medications Current Medications Diltiazem HCl (Cardizem Cd) 180 mg DAILY PO Last administered on 11/08/16 09: 23; Admin Dose 180 MG; Start 11/04/16 at 09:00 Salmeterol Xinafoate/ Fluticasone (Advair 500/50 Diskus) 1 inh BID INH ; Start 11/03/16 at 21:00; Status Future Hold Tiotropium [place] (Spiriva) 1 inh DAILY INH ; Start 11/04/16 at 09:00; Status Future Hold Tamsulosin HCl (Flomax) 0.4 mg HS PO Last administered on 11/07/16 21:51; Admin Dose 0.4 MG; Start 11/03/16 at 21:00 Ondansetron HCl (Zofran Inj) 4 mg Q6H PRN IV NAUSEA AND/OR VOMITING; Start 03/12 at 15:30 Acetaminophen (Tylenol Tab) 650 mg Q6H PRN PO PAIN LEVEL 1-3 OR FEVER; Start at 15:30 Acetaminophen (Tylenol Supp) 650 mg Q6H PRN [place] PAIN LEVEL 1-3 OR FEVER; Start 11/03/16 at 15:30 Acetaminophen/ Hydrocodone Bitart ([place] (5/325)) 1 tab Q6H PRN PO MODERATE PAIN LEVEL 4-6 Last administered on 11/08/16 05:35; Admin Dose 1 TAB; Start 03/12 at 15:30 Acetaminophen/ Hydrocodone Bitart ([place] (5/325)) 2 tab Q6H PRN PO SEVERE PAIN LEVEL 7-10; Start 11/03/16 at 15:30 Morphine Sulfate (morphine) 2 mg Q4H PRN IV SEVERE PAIN LEVEL 7-10; Start 11/03 at 15:30 Docusate Sodium (Colace) 100 mg Q12H PRN PO CONSTIPATION; Start 11/03/16 at 15: 30 Magnesium Hydroxide (Milk Of Mag) 30 ml DAILY PRN PO CONSTIPATION; Start at 15:30 Bisacodyl (Dulcolax Supp) 10 mg DAILY PRN [place] CONSTIPATION; Start 11/03/16 at 15 :30 Heparin Sodium (Porcine) 5000 unit 5,000 unit Q12 SC Last administered on 09:28; Admin Dose 5,000 UNIT; Start 11/03/16 at 21:00 Azithromycin (Zithromax 500mg/ NS (Pmx)) 250 ml @ 250 mls/hr Q24H IV Last administered on 11/08/16 09:30; Admin Dose 250 MLS/HR; Start 11/04/16 at 10:00 Guaifenesin (Mucinex) 600 mg BID PO Last administered on 11/07/16 21:51; Admin Dose 600 MG; Start 11/03/16 at 21:00 Furosemide 40 mg 40 mg DAILY@06 IV ; Start 11/04/16 at 06:00 Cefepime HCl (Maxipime 2gm/50 ml (Pmx)) 50 ml @ 100 mls/hr Q12 IVPB Last administered on 11/08/16 09:30; Admin Dose 100 MLS/HR; Start 11/03/16 at 21:00 Zolpidem Tartrate (Ambien) 5 mg HS PRN PO INSOMNIA Last administered on 00:32; Admin Dose 5 MG; Start 11/04/16 at 01:30 Pantoprazole (Protonix Tab) 40 mg DAILY@06 PO Last administered on 11/08/16 05 :33; Admin Dose 40 MG; Start 11/05/16 at 06:00 Methylprednisolone Sodium Succinate 40 mg 40 mg BID IV Last administered on 09:22; Admin Dose 40 MG; Start 11/04/16 at 21:00 Vancomycin HCl (Vancocin) 250 ml @ 125 mls/hr Q12H IVPB Last administered on 03:03; Admin Dose 125 MLS/HR; Start 11/07/16 at 02:00 Procedures Procedures PROCEDURE: XR Chest. CLINICAL INDICATION: Pneumonia, CHF TECHNIQUE: Single frontal chest x-ray. COMPARISON: 11/05/2016 FINDINGS: Again noted are hyperinflated lungs, suggesting COPD, with likely bullae at the right lung apex. Focally increased opacity is again seen in the left upper lung , concerning for pneumonia. No pneumothorax or significant pleural effusion is identified. Cardiomediastinal silhouette is within normal limits. The osseous structures are unremarkable. IMPRESSION: 1. Focally increased opacity is again seen in the left upper lung, concerning for pneumonia, grossly stable. 2. Probable COPD, with likely bullae at the right lung apex. 3. No significant interval change. RPTAT: HDWR .Carlos Frank MD, MD Date Time Electronically viewed and signed by .Carlos Frank MD, MD on 11/07/2016 10: 10 .R/ PROCEDURE: CT Chest with contrast. CLINICAL INDICATION: Left lung consolidation TECHNIQUE: CT of the chest was performed on a multi-detector scanner following the uncomplicated IV administration of 80 cc of Omnipaque 300. Coronal and sagittal images were reformatted from the axial data set. One or more of the following dose reduction techniques were used: automated exposure control, adjustment of the mA and/or kV according to patient size, use of iterative reconstruction technique. CTDI = 9.23 mGy. DLP = 412.84 mGy-cm. COMPARISON: CT, 11/05/2016 FINDINGS: There is severe pulmonary emphysema, with large biapical bullae noted, greater on the right. Small bilateral pleural effusions are present, with associated bibasilar atelectasis. Focal consolidation is again noted posteriorly in the left upper lobe, concerning for pneumonia. No pneumothorax or pulmonary edema is identified. The central tracheobronchial tree is clear. No evidence of pulmonary nodule or mass is identified. The heart size is normal without pericardial effusion. There is no thoracic aortic aneurysm or dissection. No mediastinal, hilar, axillary or supraclavicular lymphadenopathy is identified. Nonobstructive right renal calculus is noted, without evidence for obstructive uropathy. Visualized portions of the upper abdomen are otherwise unremarkable. The surrounding osseous structures are remarkable for degenerative spondylosis of the spine. No osteolytic or osteoblastic lesion is detected. IMPRESSION: 1. Focal pulmonary consolidation is again noted posteriorly in the left upper lobe, concerning for pneumonia. 2. There is severe pulmonary emphysema, with large biapical bullae noted. 3. Small bilateral pleural effusions are present, with associated bibasilar atelectasis. 4. No gross evidence of neoplasm, mass or lymphadenopathy is identified. 5. Small nonobstructive right renal calculus is seen, without evidence of obstructive uropathy. RPTAT: HDWR .Carlos Frank MD, MD Date Time Electronically viewed and signed by .Carlos Frank MD, MD on 11/07/2016 10: 08 .R/ CC: ABIGAIL FLORES BOLATITO M. Nov 08, 2016 12:16
--- NOTE | 2016-11-08 13:31 | CONS ---
DATE OF ADMISSION: 11/03/2016 DATE OF CONSULTATION: 11/08/2016 TYPE OF CONSULTATION: Infectious disease. REASON FOR CONSULTATION: Antibiotic management. HISTORY OF PRESENT ILLNESS: Harlan Camacho is a 71-year-old male with a number of problems who c omes in with sepsis secondary to community-acquired pneumonia. PAST PROBLEMS INCLUDE: 1. Emphysema. 2. Benign prostatic hypertrophy. 3. Chronic obstructive pulmonary disease with oxygen dependency. He came in with 5 days of shortne ss of breath with cough and yellow phlegm production. Chest x-ray showed new left suprahilar opacit ies suggestive of pneumonia with some increase in hilar vasculature. His white count on admission w as 35.3, H and H 12.5 and 39.8, platelet count 396,000, BUN and creatinine 25/1.04. PAST MEDICAL HISTORY: Operations as outlined. FAMILY HISTORY: Noncontributory. SOCIAL HISTORY: He does smoke. Has a history of smoking in the past 40 years, 1 pack per day. He does not drink or abuse drugs. ALLERGIES: NONE TO PENICILLIN, SULFA OR FOODS. MEDICATIONS: Per chart. REVIEW OF SYSTEMS: As per HPI. PHYSICAL EXAMINATION: GENERAL: The patient is an elderly appearing male who is awake, responsive, in no acute distress. VITAL SIGNS: Stable. He is afebrile. SKIN: Without generalized rash. HEENT: Within normal limits. NECK: Supple. LYMPH NODES: None palpable. CHEST: Decreased breath sounds at the bases. HEART: Without murmur or gallop. ABDOMEN: Soft, nontender, without organosplenomegaly or masses. EXTREMITIES: Without cyanosis, clubbing, or edema. RECTAL AND GENITAL: Deferred. NEUROLOGIC: No focal neurological abnormalities. IMPRESSION AND PLAN: At present he has sepsis secondary to healthcare-associated pneumonia, severe emphysema, chronic BPH. Microbiology: Blood cultures showed coag negative staph from the 10th, but from the 12th were negative and normal respiratory león corynebacterium acting. Patient is on: 1. Vancomycin. 2. Azithromycin. 3. Cefepime. We may want to discontinue the vancomycin shortly. I will dictate my findings to the hospitalist. Dictated By: CYNTHIA SILVERMAN MD, JD/MERCED Conf#: [id number] DID#: [id number]
[2016-11-08] MEDS: TAMSULOSIN (SR) 0.4 MG CAP PO SCH (22:50)
[2016-11-09] VITALS (12 sets, daily range): BP systolic 112–138; BP diastolic 61–67; PULSE 68–120; RESP 18–21
[2016-11-09] MEDS: ALBUTEROL/IPRATROPIUM (NEB) 3 ML AMP HHN SCH ×6 (00:13→20:05)
[2016-11-09] MEDS: VANCOMYCIN 1 GM in NS 250 ML IVPB SCH ×2 (01:41→14:06)
[2016-11-09] MEDS: ZOLPIDEM 5 MG TAB PO PRN (01:48)
[2016-11-09] MEDS: FUROSEMIDE 40 MG INJ IV SCH ×2 (06:00→17:22)
[2016-11-09] MEDS: PANTOPRAZOLE (EC) 40 MG TAB PO SCH (06:21)
[2016-11-09] MEDS: HYDROCODONE/APAP (5/325) TAB PO PRN ×2 (06:51→18:45)
[2016-11-09] MEDS: CEFEPIME 2GM/50 ML (PMX) 50 ML IVPB SCH ×2 (08:55→21:58)
[2016-11-09] MEDS: METHYLPREDNISOLONE 40 MG INJ IV SCH ×2 (08:55→21:58)
[2016-11-09] MEDS: DILTIAZEM (CD) 180 MG CAP PO SCH (08:56)
[2016-11-09] MEDS: GUAIFENESIN LA 600 MG TABSR PO SCH ×2 (09:00→21:00)
[2016-11-09] MEDS: HEPARIN 5,000 UNIT/0.5 ML VIAL SC SCH ×2 (09:36→22:02)
[2016-11-09 10:23] LABS: ADD SCAN DIFF NO
[2016-11-09 10:29] LABS: ABNORMAL IP MESSAGE 1; HEMATOCRIT 30.3 % (42.0-52.0); HEMOGLOBIN 9.5 g/dl (14.0-18.0); MEAN CORPUSCULAR HEMOGLOBIN 29.6 pg (29.0-33.0); MEAN CORPUSCULAR HGB CONC 31.4 g/dl (32.0-37.0); MEAN CORPUSCULAR VOLUME 94.4 fl (82.0-101.0); MEAN PLATELET VOLUME 10.6 fl (7.4-10.4); PLATELET COUNT 251 10^3/UL (140-415); RED BLOOD COUNT 3.21 10^6/ul (4.70-6.10); RED CELL DISTRIBUTION WIDTH 16.1 % (11.5-14.5); WHITE BLOOD COUNT 30.9 10^3/ul (4.8-10.8)
[2016-11-09 10:51] LABS: CALCIUM 8.1 mg/dl (8.4-10.2); CREATININE 0.66 mg/dl (0.61-1.24); MAGNESIUM 1.9 mg/dl (1.7-2.5); PHOSPHORUS 2.4 mg/dl (2.5-4.9); POTASSIUM 3.2 mmol/L (3.5-5.1)
--- NOTE | 2016-11-09 10:53 | PN ---
Date/Time of Note Date/Time of Note DATE: 11/09/16 TIME: 10:50 Assessment/Plan VTE Prophylaxis VTE Prophylaxis Intervention: heparin Lines/Catheters IV Catheter Type (from Nrs): Peripheral IV Assessment/Plan Assessment/Plan 1. Sepsis secondary to Health care associated pneumonia. 2. Severe Emphysema with exacerbation and biapical bullae 3. Chronic BPH. 4. No lung mass on CT with contrast 5. Iron deficiency Anemia. 6. BC 1/2 positive likely contaminant 7, HTN: controlled on cardizem, no hx of afib 8. Leucocytosis: possibly a component of steroid / improving PLAN: * Continue abx / bronchodilators / steroids / pulm managing * CT findings and pulm recs noted / may need bronchoscopy per pulm if no improvement in the next few days / ID consult noted and appreciated * repeat blood cultures negative * IV iron replacement * Continue gentle diuresis * DVT prophylaxis: Heparin * Supportive care Subjective 24 Hr Interval Summary Free Text/Dictation Continued resp distress, Exam/Review of Systems Vital Signs Vitals Vital Signs Date Time Temp Pulse Resp B/P Pulse Ox O2 Delivery O2 Flow Rate FiO2 11/09/16 09:40 72 16 96 Nasal Cannula 2.0 11/09/16 08:21 97.7 127/67 Intake and Output 11/08/16 11/08/16 11/09/16 15:00 23:00 07:00 Intake Total 650 ml 100 ml Output Total 300 ml Balance 650 ml -200 ml Exam Constitutional: alert, oriented, lethargic Psych: nl mood/affect Head: normocephalic Neck: supple Respiratory: wheezing, reduced air entry Cardiovascular: other Gastrointestinal: non-tender, soft Extremities: no edema Neurological: CIGAR PATCHER II-XII intact, nl mental status, nl speech Skin: nl turgor Results Result Diagram: 11/09/16 1020 11/08/16 0937 Results 24 hrs Laboratory Tests Test 11/09/16 10:20 White Blood Count 30.9 H Red Blood Count 3.21 L Hemoglobin 9.5 L Hematocrit 30.3 L Mean Corpuscular Volume 94.4 Mean Corpuscular Hemoglobin 29.6 Mean Corpuscular Hemoglobin Concent 31.4 L Red Cell Distribution Width 16.1 H Platelet Count 251 Mean Platelet Volume 10.6 H Neutrophils % Eosinophils % Neutrophils # Eosinophils # Medications Medications Current Medications Diltiazem HCl (Cardizem Cd) 180 mg DAILY PO Last administered on 11/09/16 08: 56; Admin Dose 180 MG; Start 11/04/16 at 09:00 Salmeterol Xinafoate/ Fluticasone (Advair 500/50 Diskus) 1 inh BID INH ; Start 11/03/16 at 21:00; Status Future Hold Tiotropium [place] (Spiriva) 1 inh DAILY INH ; Start 11/04/16 at 09:00; Status Future Hold Tamsulosin HCl (Flomax) 0.4 mg HS PO Last administered on 11/08/16 22:50; Admin Dose 0.4 MG; Start 11/03/16 at 21:00 Ondansetron HCl (Zofran Inj) 4 mg Q6H PRN IV NAUSEA AND/OR VOMITING; Start 03/12 at 15:30 Acetaminophen (Tylenol Tab) 650 mg Q6H PRN PO PAIN LEVEL 1-3 OR FEVER; Start at 15:30 Acetaminophen (Tylenol Supp) 650 mg Q6H PRN [place] PAIN LEVEL 1-3 OR FEVER; Start 11/03/16 at 15:30 Acetaminophen/ Hydrocodone Bitart ([place] (5/325)) 1 tab Q6H PRN PO MODERATE PAIN LEVEL 4-6 Last administered on 11/09/16 06:51; Admin Dose 1 TAB; Start 03/12 at 15:30 Acetaminophen/ Hydrocodone Bitart ([place] (5/325)) 2 tab Q6H PRN PO SEVERE PAIN LEVEL 7-10; Start 11/03/16 at 15:30 Morphine Sulfate (morphine) 2 mg Q4H PRN IV SEVERE PAIN LEVEL 7-10; Start 11/03 at 15:30 Docusate Sodium (Colace) 100 mg Q12H PRN PO CONSTIPATION; Start 11/03/16 at 15: 30 Magnesium Hydroxide (Milk Of Mag) 30 ml DAILY PRN PO CONSTIPATION; Start at 15:30 Bisacodyl (Dulcolax Supp) 10 mg DAILY PRN [place] CONSTIPATION; Start 11/03/16 at 15 :30 Heparin Sodium (Porcine) 5000 unit 5,000 unit Q12 SC Last administered on 09:36; Admin Dose 5,000 UNIT; Start 11/03/16 at 21:00 Azithromycin (Zithromax 500mg/ NS (Pmx)) 250 ml @ 250 mls/hr Q24H IV Last administered on 11/08/16 09:30; Admin Dose 250 MLS/HR; Start 11/04/16 at 10:00 Guaifenesin (Mucinex) 600 mg BID PO Last administered on 11/07/16 21:51; Admin Dose 600 MG; Start 11/03/16 at 21:00 Furosemide 40 mg 40 mg DAILY@06 IV ; Start 11/04/16 at 06:00 Cefepime HCl (Maxipime 2gm/50 ml (Pmx)) 50 ml @ 100 mls/hr Q12 IVPB Last administered on 11/09/16 08:55; Admin Dose 100 MLS/HR; Start 11/03/16 at 21:00 Zolpidem Tartrate (Ambien) 5 mg HS PRN PO INSOMNIA Last administered on 01:48; Admin Dose 5 MG; Start 11/04/16 at 01:30 Pantoprazole (Protonix Tab) 40 mg DAILY@06 PO Last administered on 11/09/16 06 :21; Admin Dose 40 MG; Start 11/05/16 at 06:00 Methylprednisolone Sodium Succinate 40 mg 40 mg BID IV Last administered on 08:55; Admin Dose 40 MG; Start 11/04/16 at 21:00 Vancomycin HCl (Vancocin) 250 ml @ 125 mls/hr Q12H IVPB Last administered on 01:41; Admin Dose 125 MLS/HR; Start 11/07/16 at 02:00 ABIGAIL FLORES Nov 09, 2016 10:53
[2016-11-09 11:09] LABS: ANISOCYTOSIS 1+; LYMPHOCYTES # 3.7 10^3/ul (0.8-2.9); MONOCYTE # 0.9 10^3/ul (0.3-0.9); NEUTROPHIL # 26.3 10^3/ul (1.6-7.5)
--- NOTE | 2016-11-09 11:23 | RADRPT ---
PROCEDURE: Chest 1 views. CLINICAL INDICATION: Shortness of breath. TECHNIQUE: AP views of the chest was obtained. COMPARISON: November 07, [address] November 06, 2016 FINDINGS: The heart is large. The lungs are hyperexpanded. Diffuse interstitial prominence in both lungs cont inues to be identified. Scattered calcified granulomas over the right lower lobe are unchanged. Pablo perimposed patchy alveolar infiltrates throughout the left lung are stable. The osseous structures are osteopenic, but appear grossly intact. IMPRESSION: Cardiomegaly . Hyperexpanded lungs with diffuse mild interstitial prominence in both lungs. Interstitial prominenc e could be chronic. Findings could reflect COPD. Stable superimposed alveolar infiltrates throughout the left lung. Stable calcified granulomatous disease in the right lower lobe. RPTAT: AA .Jose Orosco MD, Date Time Electronically viewed and signed by .Jose Orosco MD, on 11/09/2016 11:23 .P/
--- NOTE | 2016-11-09 11:55 | CONS ---
Date/Time of Note Date/Time of Note DATE: 11/09/16 TIME: 11:52 Assessment/Plan Assessment/Plan Additional Assessment/Plan Assessment recommendations; next 1. Patient admitted for COPD exacerbation and acute bronchitis with possibly left-sided pneumonia. Currently on broad-spectrum antibiotic coverage with persistent leukocytosis. 2. Severe bullous emphysema with areas of significant fibrosis involving left apex. 3. Chronic hypoxemia. Continue current treatment. Patient responding well to current treatment regimen. Consultation Date/Type/Reason Admit Date/Time Nov 03, 2016 at 13:29 Initial Consult Date Type of Consultation: pulm 24 HR Interval Summary Free Text/Dictation Patient condition is gradually improving. According to him when he came into the hospital the patient was in attire straight with significant interval improvement in respiratory status. Still complains of dyspnea on minimal exertion. Denies any wheezing. Any hemoptysis. Complete a very scant sputum production and cough. Denies any fever chills. General exam; elderly male, awake alert currently in no distress. Exam/Review of Systems Vital Signs Vitals Vital Signs Date Time Temp Pulse Resp B/P Pulse Ox O2 Delivery O2 Flow Rate FiO2 11/09/16 11:45 97.6 84 20 131/66 96 11/09/16 09:40 Nasal Cannula 2.0 Intake and Output 11/08/16 11/08/16 11/09/16 15:00 23:00 07:00 Intake Total 650 ml 100 ml Output Total 300 ml Balance 650 ml -200 ml Exam HEENT exam; supple neck, no JVD. No lymphadenopathy. Midline trachea. No thyromegaly. Pharynx is clear. Patient has a few missing teeth. Pupils are small bilaterally. Chest examined; diminished breath sounds throughout. S1-S2 audible, no murmurs. Regular rhythm. Abdomen examination; soft, no organomegaly. Bowel sounds audible. Extremity exam; trace anasarca. Patient does have multiple ecchymosis involving all 4 extremities. 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 Results Result Diagram: 11/09/16 1020 11/09/16 1017 Results 24 hrs Laboratory Tests Test 11/09/16 10:17 11/09/16 10:20 Sodium Level 142 Potassium Level 3.2 L Chloride Level 108 Carbon Dioxide Level 31 Anion Gap 6 L Blood Urea Nitrogen 24 H Creatinine 0.66 Glucose Level 173 Calcium Level 8.1 L Phosphorus Level 2.4 L Magnesium Level 1.9 White Blood Count 30.9 H Red Blood Count 3.21 L Hemoglobin 9.5 L Hematocrit 30.3 L Mean Corpuscular Volume 94.4 Mean Corpuscular Hemoglobin 29.6 Mean Corpuscular Hemoglobin Concent 31.4 L Red Cell Distribution Width 16.1 H Platelet Count 251 Mean Platelet Volume 10.6 H Neutrophils % 85.0 H Lymphocytes % 12.0 L Monocytes % 3.0 Eosinophils % Neutrophils # 26.3 H Lymphocytes # 3.7 H Monocytes # 0.9 Eosinophils # Anisocytosis 1+ Medications Medications Current Medications Diltiazem HCl (Cardizem Cd) 180 mg DAILY PO Last administered on 11/09/16 08: 56; Admin Dose 180 MG; Start 11/04/16 at 09:00 Salmeterol Xinafoate/ Fluticasone (Advair 500/50 Diskus) 1 inh BID INH ; Start 11/03/16 at 21:00; Status Future Hold Tiotropium [place] (Spiriva) 1 inh DAILY INH ; Start 11/04/16 at 09:00; Status Future Hold Tamsulosin HCl (Flomax) 0.4 mg HS PO Last administered on 11/08/16 22:50; Admin Dose 0.4 MG; Start 11/03/16 at 21:00 Ondansetron HCl (Zofran Inj) 4 mg Q6H PRN IV NAUSEA AND/OR VOMITING; Start 03/12 at 15:30 Acetaminophen (Tylenol Tab) 650 mg Q6H PRN PO PAIN LEVEL 1-3 OR FEVER; Start at 15:30 Acetaminophen (Tylenol Supp) 650 mg Q6H PRN [place] PAIN LEVEL 1-3 OR FEVER; Start 11/03/16 at 15:30 Acetaminophen/ Hydrocodone Bitart ([place] (5/325)) 1 tab Q6H PRN PO MODERATE PAIN LEVEL 4-6 Last administered on 11/09/16 06:51; Admin Dose 1 TAB; Start 03/12 at 15:30 Acetaminophen/ Hydrocodone Bitart ([place] (5/325)) 2 tab Q6H PRN PO SEVERE PAIN LEVEL 7-10; Start 11/03/16 at 15:30 Morphine Sulfate (morphine) 2 mg Q4H PRN IV SEVERE PAIN LEVEL 7-10; Start 11/03 at 15:30 Docusate Sodium (Colace) 100 mg Q12H PRN PO CONSTIPATION; Start 11/03/16 at 15: 30 Magnesium Hydroxide (Milk Of Mag) 30 ml DAILY PRN PO CONSTIPATION; Start at 15:30 Bisacodyl (Dulcolax Supp) 10 mg DAILY PRN [place] CONSTIPATION; Start 11/03/16 at 15 :30 Heparin Sodium (Porcine) 5000 unit 5,000 unit Q12 SC Last administered on 09:36; Admin Dose 5,000 UNIT; Start 11/03/16 at 21:00 Azithromycin (Zithromax 500mg/ NS (Pmx)) 250 ml @ 250 mls/hr Q24H IV Last administered on 11/08/16 09:30; Admin Dose 250 MLS/HR; Start 11/04/16 at 10:00 Guaifenesin (Mucinex) 600 mg BID PO Last administered on 11/07/16 21:51; Admin Dose 600 MG; Start 11/03/16 at 21:00 Furosemide 40 mg 40 mg DAILY@06 IV ; Start 11/04/16 at 06:00 Cefepime HCl (Maxipime 2gm/50 ml (Pmx)) 50 ml @ 100 mls/hr Q12 IVPB Last administered on 11/09/16 08:55; Admin Dose 100 MLS/HR; Start 11/03/16 at 21:00 Zolpidem Tartrate (Ambien) 5 mg HS PRN PO INSOMNIA Last administered on 01:48; Admin Dose 5 MG; Start 11/04/16 at 01:30 Pantoprazole (Protonix Tab) 40 mg DAILY@06 PO Last administered on 11/09/16 06 :21; Admin Dose 40 MG; Start 11/05/16 at 06:00 Methylprednisolone Sodium Succinate 40 mg 40 mg BID IV Last administered on 08:55; Admin Dose 40 MG; Start 11/04/16 at 21:00 Vancomycin HCl (Vancocin) 250 ml @ 125 mls/hr Q12H IVPB Last administered on 01:41; Admin Dose 125 MLS/HR; Start 11/07/16 at 02:00 Miscellaneous Information (*Rx Drug Level Order Reminder*) VANCO TROUGH @ 0, 100 ON... ONCE ONCE XX ; Start 11/10/16 at 01:00; Stop 11/10/16 at 01:01 SHONNA MONTERO Nov 09, 2016 11:55
[2016-11-09] MEDS: AZITHROMYCIN 500MG/NS (PMX) 250 ML IV SCH (12:23)
[2016-11-09] MEDS: TAMSULOSIN (SR) 0.4 MG CAP PO SCH (21:58)
[2016-11-10] VITALS (11 sets, daily range): BP systolic 124–129; BP diastolic 63–84; PULSE 73–151; RESP 18–22
[2016-11-10] MEDS: ALBUTEROL/IPRATROPIUM (NEB) 3 ML AMP HHN SCH ×6 (00:25→20:40)
[2016-11-10] MEDS: ZOLPIDEM 5 MG TAB PO PRN (00:51)
[2016-11-10] MEDS: PANTOPRAZOLE (EC) 40 MG TAB PO SCH (05:49)
--- NOTE | 2016-11-10 06:31 | PN ---
DATE: 11/09/2016 SUBJECTIVE: No acute events overnight. The patient is awake, lying comfortably in bed. Complainin g of bilateral arm pain secondary to being poked multiple times. No fevers. WBC today 30.9, H and H 9.5 and 30.3, platelets 251, neutrophils 85. No bands. BUN 24, creatinine 0.66. MICROBIOLOGY: Blood cultures from November 05 remain negative. DIAGNOSTICS: Chest x-ray this morning revealed COPD, stable superimposed alveolar infiltrates throu ghout the left lung, and stable calcified granulomatous disease in the right lower lung. ANTIMICROBIALS: 1. Vancomycin. 2. Zithromax. 3. Cefepime, day #7. PHYSICAL EXAMINATION: GENERAL: Chronically ill-appearing, elderly man, who is awake, in no distress. HEENT: Head atraumatic, normocephalic. Sclerae anicteric. Buccal mucosa dry. NECK: Supple. CHEST: Chest rise is symmetrical. Breath sounds diminished to the bases. HEART: S1, S2. ABDOMEN: Soft. Bowel tones present. EXTREMITIES: No cyanosis. ASSESSMENT: 1. Resolving sepsis. 2. Pneumonia with chronic obstructive pulmonary disease exacerbation. 3. Chronic hypoxemia. 4. Benign prostatic hypertrophy. 5. Persistent leukocytosis, likely steroid induced. 6. ALLERGY TO SULFA AND LEVAQUIN. PLAN: The patient remains stable. He is being followed by the pulmonary team. We will continue hi m on the current antimicrobials. Continue steroid taper. Await for clinical improvement. Dictated By: ISSAC SIMEON QUANTITATIVE ANALYST MARKETING for [employer] Conf#: [id number] DID#: [id number]
[2016-11-10] MEDS: FUROSEMIDE 40 MG INJ IV SCH (09:00)
[2016-11-10] MEDS: METHYLPREDNISOLONE 40 MG INJ IV SCH ×2 (09:35→21:41)
[2016-11-10] MEDS: DILTIAZEM (CD) 180 MG CAP PO SCH (09:35)
[2016-11-10] MEDS: CEFEPIME 2GM/50 ML (PMX) 50 ML IVPB SCH ×2 (09:36→21:41)
[2016-11-10] MEDS: GUAIFENESIN LA 600 MG TABSR PO SCH ×2 (09:36→21:00)
--- NOTE | 2016-11-10 09:38 | CONS ---
Date/Time of Note Date/Time of Note DATE: 11/10/16 TIME: 09:36 Assessment/Plan Assessment/Plan Additional Assessment/Plan Assessment and recommendations; 1. Patient admitted for COPD exacerbation and pneumonia with interval clinical improvement. 2. History of severe bullous emphysema with fibrotic changes involving left upper lobe. 3. Chronic hypoxemia. Continue current treatment. Consultation Date/Type/Reason Admit Date/Time Nov 03, 2016 at 13:29 Type of Consultation: pulm 24 HR Interval Summary Free Text/Dictation Patient condition is stable. Still complains of shortness of breath upon minimal exertion. Cough and chest congestion have improved. Denies any wheezing. General exam; elderly male, awake alert currently in no distress. Exam/Review of Systems Vital Signs Vitals Vital Signs Date Time Temp Pulse Resp B/P Pulse Ox O2 Delivery O2 Flow Rate FiO2 11/10/16 08:13 73 11/10/16 08:10 20 96 Nasal Cannula 2.0 11/10/16 04:00 98.0 125/74 Intake and Output 11/09/16 11/09/16 11/10/16 15:00 23:00 07:00 Intake Total 400 ml 320 ml Output Total 350 ml 650 ml Balance 50 ml -330 ml Exam HEENT exam is; supple neck, no JVD. No lymphadenopathy. Midline trachea. No thyromegaly. Patient has a few missing teeth. Chest examined; diminished but clear breath sounds were additional. S1-S2 audible, no murmurs. Regular rhythm. Abdomen examination; soft, no organomegaly. Bowel sounds audible. Extremity exam; trace upper extremity edema bilaterally. Patient has a multiple ecchymosis involving all 4 extremity's. Pulses 2+. No clubbing. RN RADIOLOGY examination; no focal deficit. Results Result Diagram: 11/09/16 1020 11/09/16 1017 Results 24 hrs Laboratory Tests Test 11/09/16 10:17 11/09/16 10:20 11/10/16 00:44 Sodium Level 142 Potassium Level 3.2 L Chloride Level 108 Carbon Dioxide Level 31 Anion Gap 6 L Blood Urea Nitrogen 24 H Creatinine 0.66 Glucose Level 173 Calcium Level 8.1 L Phosphorus Level 2.4 L Magnesium Level 1.9 White Blood Count 30.9 H Red Blood Count 3.21 L Hemoglobin 9.5 L Hematocrit 30.3 L Mean Corpuscular Volume 94.4 Mean Corpuscular Hemoglobin 29.6 Mean Corpuscular Hemoglobin Concent 31.4 L Red Cell Distribution Width 16.1 H Platelet Count 251 Mean Platelet Volume 10.6 H Neutrophils % 85.0 H Lymphocytes % 12.0 L Monocytes % 3.0 Eosinophils % Neutrophils # 26.3 H Lymphocytes # 3.7 H Monocytes # 0.9 Eosinophils # Anisocytosis 1+ Vancomycin Level Trough 24.0 *H Medications Medications Current Medications Diltiazem HCl (Cardizem Cd) 180 mg DAILY PO Last administered on 11/09/16 08: 56; Admin Dose 180 MG; Start 11/04/16 at 09:00 Salmeterol Xinafoate/ Fluticasone (Advair 500/50 Diskus) 1 inh BID INH ; Start 11/03/16 at 21:00; Status Future Hold Tiotropium [place] (Spiriva) 1 inh DAILY INH ; Start 11/04/16 at 09:00; Status Future Hold Tamsulosin HCl (Flomax) 0.4 mg HS PO Last administered on 11/09/16 21:58; Admin Dose 0.4 MG; Start 11/03/16 at 21:00 Ondansetron HCl (Zofran Inj) 4 mg Q6H PRN IV NAUSEA AND/OR VOMITING; Start 03/12 at 15:30 Acetaminophen (Tylenol Tab) 650 mg Q6H PRN PO PAIN LEVEL 1-3 OR FEVER; Start at 15:30 Acetaminophen (Tylenol Supp) 650 mg Q6H PRN [place] PAIN LEVEL 1-3 OR FEVER; Start 11/03/16 at 15:30 Acetaminophen/ Hydrocodone Bitart ([place] (5/325)) 1 tab Q6H PRN PO MODERATE PAIN LEVEL 4-6 Last administered on 11/09/16 18:45; Admin Dose 1 TAB; Start 03/12 at 15:30 Acetaminophen/ Hydrocodone Bitart ([place] (5/325)) 2 tab Q6H PRN PO SEVERE PAIN LEVEL 7-10; Start 11/03/16 at 15:30 Morphine Sulfate (morphine) 2 mg Q4H PRN IV SEVERE PAIN LEVEL 7-10; Start 11/03 at 15:30 Docusate Sodium (Colace) 100 mg Q12H PRN PO CONSTIPATION; Start 11/03/16 at 15: 30 Magnesium Hydroxide (Milk Of Mag) 30 ml DAILY PRN PO CONSTIPATION; Start at 15:30 Bisacodyl (Dulcolax Supp) 10 mg DAILY PRN [place] CONSTIPATION; Start 11/03/16 at 15 :30 Heparin Sodium (Porcine) 5000 unit 5,000 unit Q12 SC Last administered on 22:02; Admin Dose 5,000 UNIT; Start 11/03/16 at 21:00 Azithromycin (Zithromax 500mg/ NS (Pmx)) 250 ml @ 250 mls/hr Q24H IV Last administered on 11/09/16 12:23; Admin Dose 250 MLS/HR; Start 11/04/16 at 10:00 Guaifenesin 600 mg 600 mg BID PO Last administered on 11/07/16 21:51; Admin Dose 600 MG; Start 11/03/16 at 21:00 Cefepime HCl (Maxipime 2gm/50 ml (Pmx)) 50 ml @ 100 mls/hr Q12 IVPB Last administered on 11/09/16 21:58; Admin Dose 100 MLS/HR; Start 11/03/16 at 21:00 Zolpidem Tartrate (Ambien) 5 mg HS PRN PO INSOMNIA Last administered on 00:51; Admin Dose 5 MG; Start 11/04/16 at 01:30 Pantoprazole (Protonix Tab) 40 mg DAILY@06 PO Last administered on 11/10/16 05 :49; Admin Dose 40 MG; Start 11/05/16 at 06:00 Methylprednisolone Sodium Succinate (Solu-Medrol) 40 mg BID IV Last administered on 11/09/16 21:58; Admin Dose 40 MG; Start 11/04/16 at 21:00 Furosemide 40 mg 40 mg DAILY@09 IV ; Start 11/10/16 at 09:00 Vancomycin HCl (Vancocin) 250 ml @ 125 mls/hr Q24H IVPB ; Start 11/10/16 at 14: 00 SHONNA MONTERO 17, 2017 09:38
[2016-11-10] MEDS: AZITHROMYCIN 500MG/NS (PMX) 250 ML IV SCH (09:42)
[2016-11-10] MEDS: HEPARIN 5,000 UNIT/0.5 ML VIAL SC SCH ×2 (09:45→21:52)
--- NOTE | 2016-11-10 12:55 | CONS ---
Date/Time of Note Date/Time of Note DATE: 11/10/16 TIME: 12:54 Assessment/Plan Assessment/Plan Chief Complaint/Hosp Course ID PROGRESS NOTE ABX DAY #7 => Azith #7, Vanco IV # , Cefepime 24H INTERVAL SUMMARY * A/A/O responsive w/supplemental O2 via NC, waiting for RTx scheduled HHN * Reports intermittent subjective fevers/chills, stable on supplemental O2 PHYSICAL EXAMINATION: GENERAL: VSS, NAD, no fever HEENT: Unremarkable NECK: Trach-> midline CHEST: Equal chest rise bilaterally, without dyspnea on observation HEART: Pulse RRR ABDOMEN: Soft EXTREMITIES: Warm, SKIN: Warm, dry ID ASSESSMENT: 71 yo M w/ admitted with: 1. SIRS w/low grade temps, leukocytosis due to acute bilateral community acquired PNA * Bilateral infiltrates on CXR * CT Chest w/MAKENNA Consolidation 2. COPD exacerbation * CT Chest: severe pulmonary emphysema, with large biapical bullae 3. Leukocytosis = partial steroids demargination + pulmonary sepsis 4. Hx of tobaccoism 5. Atherosclerosis 6. Lumbar dextroscoliosis and associated multilevel moderate to severe degenerative spondylosis. 7. Small nonobstructive right renal calculus is seen, without evidence of obstructive uropathy. ABX ALLERGIES: SULFA, LEVAQUIN INVASIVES: *PIV CURRENT ABX: ABX DAY #7 => Azith #7, Vanco IV # , Cefepime ID RECOMMENDATIONS: 1. Continue current ABX and await clinical improvement. . Problems: Consultation Date/Type/Reason Admit Date/Time Nov 03, 2016 at 13:29 Initial Consult Date Type of Consultation: ID Exam/Review of Systems Vital Signs Vitals Vital Signs Date Time Temp Pulse Resp B/P Pulse Ox O2 Delivery O2 Flow Rate FiO2 11/10/16 12:14 81 11/10/16 08:10 20 96 Nasal Cannula 2.0 11/10/16 04:00 98.0 125/74 Intake and Output 11/09/16 11/09/16 11/10/16 15:00 23:00 07:00 Intake Total 400 ml 320 ml Output Total 350 ml 650 ml Balance 50 ml -330 ml Results Result Diagram: 11/09/16 1020 11/09/16 1017 Results 24 hrs Laboratory Tests Test 11/10/16 00:44 Vancomycin Level Trough 24.0 *H Medications Medications Current Medications Diltiazem HCl (Cardizem Cd) 180 mg DAILY PO Last administered on 11/10/16 09: 35; Admin Dose 180 MG; Start 11/04/16 at 09:00 Salmeterol Xinafoate/ Fluticasone (Advair 500/50 Diskus) 1 inh BID INH ; Start 11/03/16 at 21:00; Status Future Hold Tiotropium [place] (Spiriva) 1 inh DAILY INH ; Start 11/04/16 at 09:00; Status Future Hold Tamsulosin HCl (Flomax) 0.4 mg HS PO Last administered on 11/09/16 21:58; Admin Dose 0.4 MG; Start 11/03/16 at 21:00 Ondansetron HCl (Zofran Inj) 4 mg Q6H PRN IV NAUSEA AND/OR VOMITING; Start 03/12 at 15:30 Acetaminophen (Tylenol Tab) 650 mg Q6H PRN PO PAIN LEVEL 1-3 OR FEVER; Start at 15:30 Acetaminophen (Tylenol Supp) 650 mg Q6H PRN [place] PAIN LEVEL 1-3 OR FEVER; Start 11/03/16 at 15:30 Acetaminophen/ Hydrocodone Bitart ([place] (5/325)) 1 tab Q6H PRN PO MODERATE PAIN LEVEL 4-6 Last administered on 11/09/16 18:45; Admin Dose 1 TAB; Start 03/12 at 15:30 Acetaminophen/ Hydrocodone Bitart ([place] (5/325)) 2 tab Q6H PRN PO SEVERE PAIN LEVEL 7-10; Start 11/03/16 at 15:30 Morphine Sulfate (morphine) 2 mg Q4H PRN IV SEVERE PAIN LEVEL 7-10; Start 11/03 at 15:30 Docusate Sodium (Colace) 100 mg Q12H PRN PO CONSTIPATION; Start 11/03/16 at 15: 30 Magnesium Hydroxide (Milk Of Mag) 30 ml DAILY PRN PO CONSTIPATION; Start at 15:30 Bisacodyl (Dulcolax Supp) 10 mg DAILY PRN [place] CONSTIPATION; Start 11/03/16 at 15 :30 Heparin Sodium (Porcine) 5000 unit 5,000 unit Q12 SC Last administered on 09:45; Admin Dose 5,000 UNIT; Start 11/03/16 at 21:00 Azithromycin (Zithromax 500mg/ NS (Pmx)) 250 ml @ 250 mls/hr Q24H IV Last administered on 11/10/16 09:42; Admin Dose 250 MLS/HR; Start 11/04/16 at 10:00 Guaifenesin 600 mg 600 mg BID PO Last administered on 11/10/16 09:36; Admin Dose 600 MG; Start 11/03/16 at 21:00 Cefepime HCl (Maxipime 2gm/50 ml (Pmx)) 50 ml @ 100 mls/hr Q12 IVPB Last administered on 11/10/16 09:36; Admin Dose 100 MLS/HR; Start 11/03/16 at 21:00 Zolpidem Tartrate (Ambien) 5 mg HS PRN PO INSOMNIA Last administered on 00:51; Admin Dose 5 MG; Start 11/04/16 at 01:30 Pantoprazole (Protonix Tab) 40 mg DAILY@06 PO Last administered on 11/10/16 05 :49; Admin Dose 40 MG; Start 11/05/16 at 06:00 Methylprednisolone Sodium Succinate (Solu-Medrol) 40 mg BID IV Last administered on 11/10/16 09:35; Admin Dose 40 MG; Start 11/04/16 at 21:00 Furosemide 40 mg 40 mg DAILY@09 IV ; Start 11/10/16 at 09:00 Vancomycin HCl (Vancocin) 250 ml @ 125 mls/hr Q24H IVPB ; Start 11/10/16 at 14: 00 KVNG MANCUSO NP Nov 10, 2016 12:55
[2016-11-10] MEDS: VANCOMYCIN 1 GM in NS 250 ML IVPB SCH (13:58)
[2016-11-10] MEDS: HYDROCODONE/APAP (5/325) TAB PO PRN (14:00)
--- NOTE | 2016-11-10 20:41 | PN ---
Date/Time of Note Date/Time of Note DATE: 11/10/16 TIME: 16:02 Assessment/Plan VTE Prophylaxis VTE Prophylaxis Intervention: heparin Lines/Catheters IV [facility] [place] [facility] Assessment/Plan Assessment/Plan 1. Sepsis secondary to Health care associated pneumonia. 2. Severe Chronic Emphysema with exacerbation and biapical bullae 3. Chronic BPH. 4. No lung mass on CT with contrast 5. Iron deficiency Anemia. 6. BC 1/2 positive likely contaminant 7, HTN: controlled on cardizem, no hx of afib 8. Leucocytosis: possibly a component of steroid / improving PLAN: * Continue abx / bronchodilators / steroids / pulm managing * CT findings and pulm recs noted / May likely need bronchoscopy. F/u pulmonary plan * repeat blood cultures negative * IV iron replacement * Continue gentle diuresis * DVT prophylaxis: Heparin * Supportive care Subjective 24 Hr Interval Summary Free Text/Dictation Patient seen and examined. seems depressed / denies suicidal ideation / refuses antidepressants for now Has been refusing lasix therapy because of frequent urinations. I have explained need for diuresis. States continued difficulty with ambulation Exam/Review of Systems Vital Signs Vitals Vital Signs Date Time Temp Pulse Resp B/P Pulse Ox O2 Delivery O2 Flow Rate FiO2 11/10/16 15:31 97.8 82 22 129/72 94 11/10/16 13:43 2.0 11/10/16 13:42 Nasal Cannula Intake and Output 11/09/16 11/09/16 11/10/16 15:00 23:00 07:00 Intake Total 400 ml 320 ml Output Total 350 ml 650 ml Balance 50 ml -330 ml Exam Constitutional: alert, oriented, lethargic Psych: mildly depressed affect Head: normocephalic Neck: supple Respiratory: wheezing, reduced air entry Cardiovascular: other Gastrointestinal: non-tender, soft Extremities: no edema Neurological: COMPUTER LANGUAGE CODER II-XII intact, nl mental status, nl speech Skin: nl turgor Results Result Diagram: 11/09/16 1020 11/09/16 1017 Results 24 hrs Laboratory Tests Test 11/10/16 00:44 Vancomycin Level Trough 24.0 *H Medications Medications Current Medications Diltiazem HCl (Cardizem Cd) 180 mg DAILY PO Last administered on 11/10/16t 09: 35; Admin Dose 180 MG; Start 11/04/16 at 09:00 Salmeterol Xinafoate/ Fluticasone (Advair 500/50 Diskus) 1 inh BID INH ; Start 11/03/16 at 21:00; Status Future Hold Tiotropium [place] (Spiriva) 1 inh DAILY INH ; Start 11/04/16 at 09:00; Status Future Hold Tamsulosin HCl (Flomax) 0.4 mg HS PO Last administered on 11/09/16 21:58; Admin Dose 0.4 MG; Start 11/03/16 at 21:00 Ondansetron HCl (Zofran Inj) 4 mg Q6H PRN IV NAUSEA AND/OR VOMITING; Start 03/12 at 15:30 Acetaminophen (Tylenol Tab) 650 mg Q6H PRN PO PAIN LEVEL 1-3 OR FEVER; Start at 15:30 Acetaminophen (Tylenol Supp) 650 mg Q6H PRN [place] PAIN LEVEL 1-3 OR FEVER; Start 11/03/16 at 15:30 Acetaminophen/ Hydrocodone Bitart ([place] (5/325)) 1 tab Q6H PRN PO MODERATE PAIN LEVEL 4-6 Last administered on 11/10/16 14:00; Admin Dose 1 TAB; Start 03/12 at 15:30 Acetaminophen/ Hydrocodone Bitart ([place] (5/325)) 2 tab Q6H PRN PO SEVERE PAIN LEVEL 7-10; Start 11/03/16 at 15:30 Morphine Sulfate (morphine) 2 mg Q4H PRN IV SEVERE PAIN LEVEL 7-10; Start 11/03 at 15:30 Docusate Sodium (Colace) 100 mg Q12H PRN PO CONSTIPATION; Start 11/03/16 at 15: 30 Magnesium Hydroxide (Milk Of Mag) 30 ml DAILY PRN PO CONSTIPATION; Start at 15:30 Bisacodyl (Dulcolax Supp) 10 mg DAILY PRN [place] CONSTIPATION; Start 11/03/16 at 15 :30 Heparin Sodium (Porcine) 5000 unit 5,000 unit Q12 SC Last administered on 09:45; Admin Dose 5,000 UNIT; Start 11/03/16 at 21:00 Azithromycin (Zithromax 500mg/ NS (Pmx)) 250 ml @ 250 mls/hr Q24H IV Last administered on 11/10/16 09:42; Admin Dose 250 MLS/HR; Start 11/04/16 at 10:00 Guaifenesin 600 mg 600 mg BID PO Last administered on 11/10/16 09:36; Admin Dose 600 MG; Start 11/03/16 at 21:00 Cefepime HCl (Maxipime 2gm/50 ml (Pmx)) 50 ml @ 100 mls/hr Q12 IVPB Last administered on 11/10/16 09:36; Admin Dose 100 MLS/HR; Start 11/03/16 at 21:00 Zolpidem Tartrate (Ambien) 5 mg HS PRN PO INSOMNIA Last administered on 00:51; Admin Dose 5 MG; Start 11/04/16 at 01:30 Pantoprazole (Protonix Tab) 40 mg DAILY@06 PO Last administered on 11/10/16 05 :49; Admin Dose 40 MG; Start 11/05/16 at 06:00 Methylprednisolone Sodium Succinate (Solu-Medrol) 40 mg BID IV Last administered on 11/10/16 09:35; Admin Dose 40 MG; Start 11/04/16 at 21:00 Furosemide 40 mg 40 mg DAILY@09 IV ; Start 11/10/16 at 09:00 Vancomycin HCl (Vancocin) 250 ml @ 125 mls/hr Q24H IVPB Last administered on 13:58; Admin Dose 125 MLS/HR; Start 11/10/16 at 14:00 ABIGAIL FLORES Nov 10, 2016 16:06
[2016-11-10] MEDS: TAMSULOSIN (SR) 0.4 MG CAP PO SCH (21:40)
[2016-11-11] VITALS (12 sets, daily range): BP systolic 105–124; BP diastolic 61–67; PULSE 77–131; RESP 20
[2016-11-11] MEDS: ZOLPIDEM 5 MG TAB PO PRN
[2016-11-11] MEDS: ALBUTEROL/IPRATROPIUM (NEB) 3 ML AMP HHN SCH ×6 (00:03→20:10)
[2016-11-11] MEDS: PANTOPRAZOLE (EC) 40 MG TAB PO SCH (06:47)
[2016-11-11] MEDS: DILTIAZEM (CD) 180 MG CAP PO SCH (07:55)
[2016-11-11] MEDS: GUAIFENESIN LA 600 MG TABSR PO SCH ×3 (07:55→20:30)
[2016-11-11] MEDS: METHYLPREDNISOLONE 40 MG INJ IV SCH ×2 (07:55→20:26)
[2016-11-11] MEDS: CEFEPIME 2GM/50 ML (PMX) 50 ML IVPB SCH ×2 (07:55→20:26)
[2016-11-11] MEDS: FUROSEMIDE 40 MG INJ IV SCH (07:56)
[2016-11-11] MEDS: HEPARIN 5,000 UNIT/0.5 ML VIAL SC SCH (07:57)
[2016-11-11] MEDS: AZITHROMYCIN 500MG/NS (PMX) 250 ML IV SCH (10:35)
--- NOTE | 2016-11-11 10:45 | PN ---
Date/Time of Note Date/Time of Note DATE: 11/11/16 TIME: 10:42 Assessment/Plan VTE Prophylaxis VTE Prophylaxis Intervention: LMWH Lines/Catheters IV Catheter Type (from Nrs): Peripheral IV Assessment/Plan Assessment/Plan 1. Sepsis secondary to Health care associated pneumonia: Corynebacterium 2. Severe Chronic Emphysema with exacerbation and biapical bullae 3. Chronic BPH. 4. No lung mass on CT with contrast 5. Iron deficiency Anemia s/p IV iron 6. Leucocytosis: possibly a component of steroid / improving 7, HTN: controlled on cardizem, no hx of afib PLAN: * Continue abx / bronchodilators / steroids / pulm managing * CT findings and pulm recs noted / May likely need bronchoscopy. F/u pulmonary plan * repeat blood cultures negative, initial was likely contaminant * Continue gentle diuresis / f/u labs * DVT prophylaxis: Lovenox * Supportive care Subjective 24 Hr Interval Summary Free Text/Dictation patient continues to be dyspneic at rest and worse with minimal exertion Exam/Review of Systems Vital Signs Vitals Vital Signs Date Time Temp Pulse Resp B/P Pulse Ox O2 Delivery O2 Flow Rate FiO2 11/11/16 08:18 116 11/11/16 08:13 98.0 20 105/62 99 11/11/16 07:36 Nasal Cannula 2.0 Intake and Output 11/10/16 11/10/16 11/11/16 15:00 23:00 07:00 Intake Total 600 ml 300 ml Output Total 1000 ml Balance 600 ml -700 ml Exam ,Constitutional: alert, oriented Head: atraumatic, normocephalic Neck: non-tender, supple Respiratory: clear to auscultation Cardiovascular: regular rate and rhythm Gastrointestinal: nl liver, spleen, non-tender, soft Extremities: normal pulses Results Result Diagram: 11/09/16 1020 11/11/16 0650 Results 24 hrs Laboratory Tests Test 11/11/16 06:50 Creatinine 0.96 Medications Medications Current Medications Diltiazem HCl (Cardizem Cd) 180 mg DAILY PO Last administered on 11/11/16t 07: 55; Admin Dose 180 MG; Start 11/04/16 at 09:00 Salmeterol Xinafoate/ Fluticasone (Advair 500/50 Diskus) 1 inh BID INH ; Start 11/03/16 at 21:00; Status Future Hold Tiotropium [place] (Spiriva) 1 inh DAILY INH ; Start 11/04/16 at 09:00; Status Future Hold Tamsulosin HCl (Flomax) 0.4 mg HS PO Last administered on 11/10/16 21:40; Admin Dose 0.4 MG; Start 11/03/16 at 21:00 Ondansetron HCl (Zofran Inj) 4 mg Q6H PRN IV NAUSEA AND/OR VOMITING; Start 03/12 at 15:30 Acetaminophen (Tylenol Tab) 650 mg Q6H PRN PO PAIN LEVEL 1-3 OR FEVER; Start at 15:30 Acetaminophen (Tylenol Supp) 650 mg Q6H PRN [place] PAIN LEVEL 1-3 OR FEVER; Start 11/03/16 at 15:30 Acetaminophen/ Hydrocodone Bitart ([place] (5/325)) 1 tab Q6H PRN PO MODERATE PAIN LEVEL 4-6 Last administered on 11/10/16 14:00; Admin Dose 1 TAB; Start 03/12 at 15:30 Acetaminophen/ Hydrocodone Bitart ([place] (5/325)) 2 tab Q6H PRN PO SEVERE PAIN LEVEL 7-10; Start 11/03/16 at 15:30 Morphine Sulfate (morphine) 2 mg Q4H PRN IV SEVERE PAIN LEVEL 7-10; Start 11/03 at 15:30 Docusate Sodium (Colace) 100 mg Q12H PRN PO CONSTIPATION; Start 11/03/16 at 15: 30 Magnesium Hydroxide (Milk Of Mag) 30 ml DAILY PRN PO CONSTIPATION; Start at 15:30 Bisacodyl (Dulcolax Supp) 10 mg DAILY PRN [place] CONSTIPATION; Start 11/03/16 at 15 :30 Heparin Sodium (Porcine) 5000 unit 5,000 unit Q12 SC Last administered on 07:57; Admin Dose 5,000 UNIT; Start 11/03/16 at 21:00 Azithromycin (Zithromax 500mg/ NS (Pmx)) 250 ml @ 250 mls/hr Q24H IV Last administered on 11/11/16 10:35; Admin Dose 250 MLS/HR; Start 11/04/16 at 10:00 Guaifenesin 600 mg 600 mg BID PO Last administered on 11/11/16 07:55; Admin Dose 600 MG; Start 11/03/16 at 21:00 Cefepime HCl (Maxipime 2gm/50 ml (Pmx)) 50 ml @ 100 mls/hr Q12 IVPB Last administered on 11/11/16 07:55; Admin Dose 100 MLS/HR; Start 11/03/16 at 21:00 Zolpidem Tartrate (Ambien) 5 mg HS PRN PO INSOMNIA Last administered on 00:00; Admin Dose 5 MG; Start 11/04/16 at 01:30 Pantoprazole (Protonix Tab) 40 mg DAILY@06 PO Last administered on 11/11/16 06 :47; Admin Dose 40 MG; Start 11/05/16 at 06:00 Methylprednisolone Sodium Succinate (Solu-Medrol) 40 mg BID IV Last administered on 11/11/16 07:55; Admin Dose 40 MG; Start 11/04/16 at 21:00 Furosemide 40 mg 40 mg DAILY@09 IV Last administered on 11/11/16 07:56; Admin Dose 40 MG; Start 11/10/16 at 09:00 Vancomycin HCl (Vancocin) 250 ml @ 125 mls/hr Q24H IVPB Last administered on 13:58; Admin Dose 125 MLS/HR; Start 11/10/16 at 14:00 ABIGAIL FLORES Nov 11, 2016 10:45
[2016-11-11] MEDS: DOCUSATE SODIUM 100 MG CAP PO SCH ×2 (11:00→20:26)
--- NOTE | 2016-11-11 13:05 | CONS ---
Date/Time of Note Date/Time of Note DATE: 11/11/16 TIME: 13:02 Assessment/Plan Assessment/Plan Chief Complaint/Hosp Course UBJECTIVE: No acute events overnight. The patient is awake. Sitting comfortably in bed. No fevers. MICROBIOLOGY: Blood cultures from November 05 remain negative. DIAGNOSTICS: Chest x-ray this morning revealed COPD, stable superimposed alveolar infiltrates throughout the left lung, and stable calcified granulomatous disease in the right lower lung. ANTIMICROBIALS: 1. Vancomycin. 2. Zithromax. 3. Cefepime, day #7. PHYSICAL EXAMINATION: GENERAL: Chronically ill-appearing, elderly man, who is awake, in no distress. HEENT: Head atraumatic, normocephalic. Sclerae anicteric. Buccal mucosa dry. NECK: Supple. CHEST: Chest rise is symmetrical. Breath sounds diminished to the bases. HEART: S1, S2. ABDOMEN: Soft. Bowel tones present. EXTREMITIES: No cyanosis. ASSESSMENT: 1. Resolving sepsis. 2. Pneumonia with chronic obstructive pulmonary disease exacerbation. 3. Chronic hypoxemia. 4. Benign prostatic hypertrophy. 5. Persistent leukocytosis, likely steroid induced. 6. ALLERGY TO SULFA AND LEVAQUIN. PLAN: The patient remains stable. He is being followed by the pulmonary team. We will continue on the current antimicrobials. Continue steroids. Await for clinical improvement. Continue steroids. Monitor Labs. staff. Problems: Consultation Date/Type/Reason Admit Date/Time Nov 03, 2016 at 13:29 Initial Consult Date Type of Consultation: ID Exam/Review of Systems Vital Signs Vitals Vital Signs Date Time Temp Pulse Resp B/P Pulse Ox O2 Delivery O2 Flow Rate FiO2 11/11/16 12:06 103 11/11/16 12:03 98.4 20 116/65 95 11/11/16 07:36 Nasal Cannula 2.0 Intake and Output 11/10/16 11/10/16 11/11/16 15:00 23:00 07:00 Intake Total 600 ml 300 ml Output Total 1000 ml Balance 600 ml -700 ml Results Result Diagram: 11/09/16 1020 11/11/16 0650 Results 24 hrs Laboratory Tests Test 11/11/16 06:50 Creatinine 0.96 Medications Medications Current Medications Diltiazem HCl (Cardizem Cd) 180 mg DAILY PO Last administered on 11/11/16t 07: 55; Admin Dose 180 MG; Start 11/04/16 at 09:00 Salmeterol Xinafoate/ Fluticasone (Advair 500/50 Diskus) 1 inh BID INH ; Start 11/03/16 at 21:00; Status Future Hold Tiotropium [place] (Spiriva) 1 inh DAILY INH ; Start 11/04/16 at 09:00; Status Future Hold Tamsulosin HCl (Flomax) 0.4 mg HS PO Last administered on 11/10/16 21:40; Admin Dose 0.4 MG; Start 11/03/16 at 21:00 Ondansetron HCl (Zofran Inj) 4 mg Q6H PRN IV NAUSEA AND/OR VOMITING; Start 03/12 at 15:30 Acetaminophen (Tylenol Tab) 650 mg Q6H PRN PO PAIN LEVEL 1-3 OR FEVER; Start at 15:30 Acetaminophen (Tylenol Supp) 650 mg Q6H PRN [place] PAIN LEVEL 1-3 OR FEVER; Start 11/03/16 at 15:30 Acetaminophen/ Hydrocodone Bitart ([place] (5/325)) 1 tab Q6H PRN PO MODERATE PAIN LEVEL 4-6 Last administered on 11/10/16 14:00; Admin Dose 1 TAB; Start 03/12 at 15:30 Acetaminophen/ Hydrocodone Bitart ([place] (5/325)) 2 tab Q6H PRN PO SEVERE PAIN LEVEL 7-10; Start 11/03/16 at 15:30 Morphine Sulfate (morphine) 2 mg Q4H PRN IV SEVERE PAIN LEVEL 7-10; Start 11/03 at 15:30 Magnesium Hydroxide (Milk Of Mag) 30 ml DAILY PRN PO CONSTIPATION; Start at 15:30 Bisacodyl 10 mg 10 mg DAILY PRN [place] CONSTIPATION; Start 11/03/16 at 15:30 Azithromycin (Zithromax 500mg/ NS (Pmx)) 250 ml @ 250 mls/hr Q24H IV Last administered on 11/11/16 10:35; Admin Dose 250 MLS/HR; Start 11/04/16 at 10:00 Guaifenesin 600 mg 600 mg BID PO Last administered on 11/11/16 07:55; Admin Dose 600 MG; Start 11/03/16 at 21:00 Cefepime HCl (Maxipime 2gm/50 ml (Pmx)) 50 ml @ 100 mls/hr Q12 IVPB Last administered on 11/11/16 07:55; Admin Dose 100 MLS/HR; Start 11/03/16 at 21:00 Zolpidem Tartrate (Ambien) 5 mg HS PRN PO INSOMNIA Last administered on 00:00; Admin Dose 5 MG; Start 11/04/16 at 01:30 Pantoprazole (Protonix Tab) 40 mg DAILY@06 PO Last administered on 11/11/16 06 :47; Admin Dose 40 MG; Start 11/05/16 at 06:00 Methylprednisolone Sodium Succinate 40 mg 40 mg BID IV Last administered on 07:55; Admin Dose 40 MG; Start 11/04/16 at 21:00 Vancomycin HCl (Vancocin) 250 ml @ 125 mls/hr Q24H IVPB Last administered on 13:58; Admin Dose 125 MLS/HR; Start 11/10/16 at 14:00 Enoxaparin Sodium (Lovenox) 40 mg DAILY SC ; Start 11/12/16 at 09:00 Docusate Sodium (Colace) 100 mg Q12 PO ; Start 11/11/16 at 11:00 Furosemide (Lasix) 20 mg DAILY@09 IV ; Start 11/12/16 at 09:00 VALERIE KUMAR NP Nov 11, 2016 13:05
--- NOTE | 2016-11-11 13:23 | CONS ---
Date/Time of Note Date/Time of Note DATE: 11/11/16 TIME: 13:21 Assessment/Plan Assessment/Plan Additional Assessment/Plan Assessment recommendations; 1. Patient admitted for severe COPD exacerbation and pneumonia with significant leukocytosis, currently on broad-spectrum antibiotic coverage. 2. 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 Continue current treatment. Obtain a CBC. Consultation Date/Type/Reason Admit Date/Time Nov 03, 2016 at 13:29 Type of Consultation: Pulmonary 24 HR Interval Summary Free Text/Dictation Patient condition is stable. He is not reporting any further improvement in his shortness of breath. Complains of very mild chest congestion. General exam; elderly male, awake alert currently in no distress. Exam/Review of Systems Vital Signs Vitals Vital Signs Date Time Temp Pulse Resp B/P Pulse Ox O2 Delivery O2 Flow Rate FiO2 11/11/16 12:06 103 11/11/16 12:03 98.4 20 116/65 95 11/11/16 07:36 Nasal Cannula 2.0 Intake and Output 11/10/16 11/10/16 11/11/16 15:00 23:00 07:00 Intake Total 600 ml 300 ml Output Total 1000 ml Balance 600 ml -700 ml Exam HEENT examination; supple neck, no JVD. No lymphadenopathy. Midline trachea. No thyromegaly. Patient has a few missing teeth. Pupils are equal and reactive to light bilaterally. Chest examination; diminished breath sounds throughout very minimal wheezing. S1-S2 audible, no murmurs. Regular rhythm. Abdomen examination; soft, nontender. No organomegaly. Bowel sounds audible. Extremity exam is; trace generalized edema. Patient does have multiple ecchymosis involving all 4 extremities. There is no clubbing. Pulses 1+ bilaterally. 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 Results Result Diagram: 11/09/16 1020 11/11/16 0650 Results 24 hrs Laboratory Tests Test 11/11/16 06:50 Creatinine 0.96 Medications Medications Current Medications Diltiazem HCl (Cardizem Cd) 180 mg DAILY PO Last administered on 11/11/16t 07: 55; Admin Dose 180 MG; Start 11/04/16 at 09:00 Salmeterol Xinafoate/ Fluticasone (Advair 500/50 Diskus) 1 inh BID INH ; Start 11/03/16 at 21:00; Status Future Hold Tiotropium [place] (Spiriva) 1 inh DAILY INH ; Start 11/04/16 at 09:00; Status Future Hold Tamsulosin HCl (Flomax) 0.4 mg HS PO Last administered on 11/10/16 21:40; Admin Dose 0.4 MG; Start 11/03/16 at 21:00 Ondansetron HCl (Zofran Inj) 4 mg Q6H PRN IV NAUSEA AND/OR VOMITING; Start 03/12 at 15:30 Acetaminophen (Tylenol Tab) 650 mg Q6H PRN PO PAIN LEVEL 1-3 OR FEVER; Start at 15:30 Acetaminophen (Tylenol Supp) 650 mg Q6H PRN [place] PAIN LEVEL 1-3 OR FEVER; Start 11/03/16 at 15:30 Acetaminophen/ Hydrocodone Bitart ([place] (5/325)) 1 tab Q6H PRN PO MODERATE PAIN LEVEL 4-6 Last administered on 11/10/16 14:00; Admin Dose 1 TAB; Start 03/12 at 15:30 Acetaminophen/ Hydrocodone Bitart ([place] (5/325)) 2 tab Q6H PRN PO SEVERE PAIN LEVEL 7-10; Start 11/03/16 at 15:30 Morphine Sulfate (morphine) 2 mg Q4H PRN IV SEVERE PAIN LEVEL 7-10; Start 11/03 at 15:30 Magnesium Hydroxide (Milk Of Mag) 30 ml DAILY PRN PO CONSTIPATION; Start at 15:30 Bisacodyl 10 mg 10 mg DAILY PRN [place] CONSTIPATION; Start 11/03/16 at 15:30 Azithromycin (Zithromax 500mg/ NS (Pmx)) 250 ml @ 250 mls/hr Q24H IV Last administered on 11/11/16 10:35; Admin Dose 250 MLS/HR; Start 11/04/16 at 10:00 Guaifenesin 600 mg 600 mg BID PO Last administered on 11/11/16 07:55; Admin Dose 600 MG; Start 11/03/16 at 21:00 Cefepime HCl (Maxipime 2gm/50 ml (Pmx)) 50 ml @ 100 mls/hr Q12 IVPB Last administered on 11/11/16 07:55; Admin Dose 100 MLS/HR; Start 11/03/16 at 21:00 Zolpidem Tartrate (Ambien) 5 mg HS PRN PO INSOMNIA Last administered on 00:00; Admin Dose 5 MG; Start 11/04/16 at 01:30 Pantoprazole (Protonix Tab) 40 mg DAILY@06 PO Last administered on 11/11/16 06 :47; Admin Dose 40 MG; Start 11/05/16 at 06:00 Methylprednisolone Sodium Succinate 40 mg 40 mg BID IV Last administered on 07:55; Admin Dose 40 MG; Start 11/04/16 at 21:00 Vancomycin HCl (Vancocin) 250 ml @ 125 mls/hr Q24H IVPB Last administered on 13:58; Admin Dose 125 MLS/HR; Start 11/10/16 at 14:00 Enoxaparin Sodium (Lovenox) 40 mg DAILY SC ; Start 11/12/16 at 09:00 Docusate Sodium (Colace) 100 mg Q12 PO ; Start 11/11/16 at 11:00 Furosemide (Lasix) 20 mg DAILY@09 IV ; Start 11/12/16 at 09:00 SHONNA MONTERO Nov 11, 2016 13:23
[2016-11-11] MEDS: VANCOMYCIN 1 GM in NS 250 ML IVPB SCH (13:34)
[2016-11-11 16:13] LABS: ADD SCAN DIFF NO
[2016-11-11] MEDS: HYDROCODONE/APAP (5/325) TAB PO PRN (16:15)
[2016-11-11 16:16] LABS: ABNORMAL IP MESSAGE 1; HEMATOCRIT 25.5 % (42.0-52.0); HEMOGLOBIN 8.2 g/dl (14.0-18.0); MEAN CORPUSCULAR HEMOGLOBIN 30.4 pg (29.0-33.0); MEAN CORPUSCULAR HGB CONC 32.2 g/dl (32.0-37.0); MEAN CORPUSCULAR VOLUME 94.4 fl (82.0-101.0); MEAN PLATELET VOLUME 11.8 fl (7.4-10.4); PLATELET COUNT 181 10^3/UL (140-415); RED CELL DISTRIBUTION WIDTH 16.5 % (11.5-14.5)
[2016-11-11 16:40] LABS: LYMPHOCYTES # 2.8 10^3/ul (0.8-2.9); MONOCYTE # 1.2 10^3/ul (0.3-0.9); NEUTROPHIL # 26.4 10^3/ul (1.6-7.5)
[2016-11-11] MEDS ORDERED: LORAZEPAM 0.5 MG TAB PO ONE (20:00)
[2016-11-11] MEDS: TAMSULOSIN (SR) 0.4 MG CAP PO SCH ×2 (20:25→20:30)
[2016-11-12] VITALS (11 sets, daily range): BP systolic 91–114; BP diastolic 59–64; PULSE 97–107; RESP 17–24
[2016-11-12] MEDS: ALBUTEROL/IPRATROPIUM (NEB) 3 ML AMP HHN SCH ×6 (00:15→20:39)
[2016-11-12] MEDS: PANTOPRAZOLE (EC) 40 MG TAB PO SCH (06:51)
[2016-11-12 07:59] LABS: ADD SCAN DIFF NO
[2016-11-12 08:04] LABS: ABNORMAL IP MESSAGE 1; HEMATOCRIT 22.3 % (42.0-52.0); MEAN CORPUSCULAR HEMOGLOBIN 30.4 pg (29.0-33.0); MEAN CORPUSCULAR HGB CONC 31.4 g/dl (32.0-37.0); MEAN PLATELET VOLUME 11.3 fl (7.4-10.4); PLATELET COUNT 217 10^3/UL (140-415); RED CELL DISTRIBUTION WIDTH 17.1 % (11.5-14.5); WHITE BLOOD COUNT 43.3 10^3/ul (4.8-10.8)
[2016-11-12 08:27] LABS: CALCIUM 7.7 mg/dl (8.4-10.2); CREATININE 1.29 mg/dl (0.61-1.24); MAGNESIUM 2.1 mg/dl (1.7-2.5); POTASSIUM 3.3 mmol/L (3.5-5.1)
[2016-11-12] MEDS: CEFEPIME 2GM/50 ML (PMX) 50 ML IVPB SCH (08:42)
[2016-11-12] MEDS: METHYLPREDNISOLONE 40 MG INJ IV SCH ×2 (08:42→20:51)
[2016-11-12] MEDS: GUAIFENESIN LA 600 MG TABSR PO SCH ×2 (08:43→20:52)
[2016-11-12] MEDS: DOCUSATE SODIUM 100 MG CAP PO SCH ×2 (08:43→21:00)
[2016-11-12] MEDS: FUROSEMIDE 20 MG INJ IV SCH (08:44)
[2016-11-12] MEDS: DILTIAZEM (CD) 180 MG CAP PO SCH (08:45)
[2016-11-12] MEDS: ENOXAPARIN 40 MG/0.4 ML SYG SC SCH (08:55)
[2016-11-12] MEDS: AZITHROMYCIN 500MG/NS (PMX) 250 ML IV SCH (09:41)
[2016-11-12 10:43] LABS: LYMPHOCYTES # 0.4 10^3/ul (0.8-2.9); MONOCYTE # 1.3 10^3/ul (0.3-0.9); MYELOCYTES # 0.9; NEUTROPHIL # 35.1 10^3/ul (1.6-7.5)
[2016-11-12] MEDS ORDERED: SOD CHLORIDE 0.9% 250 ML IV* ONE (11:46)
--- NOTE | 2016-11-12 13:39 | CONS ---
Date/Time of Note Date/Time of Note DATE: 11/12/16 TIME: 13:37 Assessment/Plan Assessment/Plan Additional Assessment/Plan Assessment recommendations; 1. P patient admitted for pneumonia and COPD exacerbation currently on appropriate antibiotic regimen. 2. Anemia , patient got a blood transmission. 3. Mild increase in serum creatinine. 4. 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 5. Persistent leukocytosis. Continue current treatment. Prognosis is guarded. Consultation Date/Type/Reason Admit Date/Time Nov 03, 2016 at 13:29 Type of Consultation: Pulmonary 24 HR Interval Summary Free Text/Dictation Patient condition remains tenuous at best. Complains of shortness of breath upon minimal exertion. Denies any wheezing or chest pain or sputum production. General exam; elderly male, awake alert currently in no distress, appears anxious. Exam/Review of Systems Vital Signs Vitals Vital Signs Date Time Temp Pulse Resp B/P Pulse Ox O2 Delivery O2 Flow Rate FiO2 11/12/16 12:40 98.3 93 17 106/59 97 11/12/16 11:39 Nasal Cannula 2.0 Intake and Output 11/11/16 11/11/16 11/12/16 15:00 23:00 07:00 Intake Total 1050 ml 100 ml Output Total 1100 ml 300 ml Balance -50 ml -200 ml Exam HEENT exam; supple neck, no JVD. No lymphadenopathy. Midline trachea. No thyromegaly. Patient has multiple missing teeth. Chest examined; diminished breath sounds throughout. With very minimal scattered crackles. S1-S2 audible, no murmurs. Regular rhythm. Abdomen exam is; soft, no organomegaly. Bowel sounds audible. Extremity exam; trace peripheral edema. There are multiple ecchymosis involving all 4 extremities. 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 Patient does have generalized muscular weakness. Results Result Diagram: 11/12/16 0953 11/12/16 0735 Results 24 hrs Laboratory Tests Test 11/11/16 15:36 11/12/16 07:35 11/12/16 09:53 White Blood Count 31.0 H 43.3 #H Red Blood Count 2.70 L 2.30 L Hemoglobin 8.2 L 7.0 L Hematocrit 25.5 L 22.3 L 18.3 L Mean Corpuscular Volume 94.4 97.0 Mean Corpuscular Hemoglobin 30.4 30.4 Mean Corpuscular Hemoglobin Concent 32.2 31.4 L Red Cell Distribution Width 16.5 H 17.1 H Platelet Count 181 # 217 Mean Platelet Volume 11.8 H 11.3 H Neutrophils % 85.0 H 81.0 H Band Neutrophils % 2.0 3.0 Lymphocytes % 9.0 L 1.0 L Monocytes % 4.0 3.0 Eosinophils % Neutrophils # 26.4 H 35.1 H Lymphocytes # 2.8 0.4 L Monocytes # 1.2 H 1.3 H Eosinophils # Metamyelocytes % 10.0 H Myelocytes % 2.0 H Metamyelocytes # 4.3 Myelocytes # 0.9 Sodium Level 141 Potassium Level 3.3 L Chloride Level 104 Carbon Dioxide Level 32 H Anion Gap 8 Blood Urea Nitrogen 67 H Creatinine 1.29 H Glucose Level 127 Calcium Level 7.7 L Magnesium Level 2.1 Medications Medications Current Medications Diltiazem HCl (Cardizem Cd) 180 mg DAILY PO Last administered on 11/12/16 08: 45; Admin Dose 180 MG; Start 11/04/16 at 09:00 Salmeterol Xinafoate/ Fluticasone (Advair 500/50 Diskus) 1 inh BID INH ; Start 11/03/16 at 21:00; Status Future Hold Tiotropium [place] (Spiriva) 1 inh DAILY INH ; Start 11/04/16 at 09:00; Status Future Hold Tamsulosin HCl (Flomax) 0.4 mg HS PO Last administered on 11/10/16 21:40; Admin Dose 0.4 MG; Start 11/03/16 at 21:00 Ondansetron HCl (Zofran Inj) 4 mg Q6H PRN IV NAUSEA AND/OR VOMITING; Start 03/12 at 15:30 Acetaminophen (Tylenol Tab) 650 mg Q6H PRN PO PAIN LEVEL 1-3 OR FEVER; Start at 15:30 Acetaminophen (Tylenol Supp) 650 mg Q6H PRN [place] PAIN LEVEL 1-3 OR FEVER; Start 11/03/16 at 15:30 Acetaminophen/ Hydrocodone Bitart ([place] (5/325)) 1 tab Q6H PRN PO MODERATE PAIN LEVEL 4-6 Last administered on 11/11/16 16:15; Admin Dose 1 TAB; Start 03/12 at 15:30 Acetaminophen/ Hydrocodone Bitart ([place] (5/325)) 2 tab Q6H PRN PO SEVERE PAIN LEVEL 7-10; Start 11/03/16 at 15:30 Morphine Sulfate (morphine) 2 mg Q4H PRN IV SEVERE PAIN LEVEL 7-10; Start 11/03 at 15:30 Magnesium Hydroxide (Milk Of Mag) 30 ml DAILY PRN PO CONSTIPATION; Start at 15:30 Bisacodyl 10 mg 10 mg DAILY PRN [place] CONSTIPATION; Start 11/03/16 at 15:30 Azithromycin (Zithromax 500mg/ NS (Pmx)) 250 ml @ 250 mls/hr Q24H IV Last administered on 11/12/16 09:41; Admin Dose 250 MLS/HR; Start 11/04/16 at 10:00 Guaifenesin 600 mg 600 mg BID PO Last administered on 11/12/16 08:43; Admin Dose 600 MG; Start 11/03/16 at 21:00 Cefepime HCl (Maxipime 2gm/50 ml (Pmx)) 50 ml @ 100 mls/hr Q12 IVPB Last administered on 11/12/16 08:42; Admin Dose 100 MLS/HR; Start 11/03/16 at 21:00 Zolpidem Tartrate (Ambien) 5 mg HS PRN PO INSOMNIA Last administered on 00:00; Admin Dose 5 MG; Start 11/04/16 at 01:30 Pantoprazole (Protonix Tab) 40 mg DAILY@06 PO Last administered on 11/12/16 06 :51; Admin Dose 40 MG; Start 11/05/16 at 06:00 Methylprednisolone Sodium Succinate 40 mg 40 mg BID IV Last administered on 08:42; Admin Dose 40 MG; Start 11/04/16 at 21:00 Vancomycin HCl (Vancocin) 250 ml @ 125 mls/hr Q24H IVPB Last administered on 13:34; Admin Dose 125 MLS/HR; Start 11/10/16 at 14:00 Enoxaparin Sodium (Lovenox) 40 mg DAILY SC Last administered on 11/12/16 08:55 ; Admin Dose 40 MG; Start 11/12/16 at 09:00 Docusate Sodium (Colace) 100 mg Q12 PO Last administered on 11/12/16t 08:43; Admin Dose 100 MG; Start 11/11/16 at 11:00 Furosemide (Lasix) 20 mg DAILY@09 IV ; Start 11/12/16 at 09:00 SHONNA MONTERO Nov 12, 2016 13:38
[2016-11-12] MEDS: VANCOMYCIN 1 GM in NS 250 ML IVPB SCH (14:19)
[2016-11-12] MEDS ORDERED: POTASSIUM CHLORIDE (SR) 20 MEQ TAB PO STA (18:27)
--- NOTE | 2016-11-12 18:30 | PN ---
Date/Time of Note Date/Time of Note DATE: 11/12/16 TIME: 18:26 Assessment/Plan VTE Prophylaxis VTE Prophylaxis Intervention: LMWH Lines/Catheters IV [facility] Type [facility]from [facility] Sal[facility] Lock Urinary Cath still in place: No Assessment/Plan Chief Complaint/Hosp Course Assessment/Plan: 71 M with: 1. Sepsis secondary to Health care associated pneumonia: Corynebacterium - WBC more elevated. 2. Severe Chronic Emphysema with exacerbation and biapical bullae 3. Chronic BPH. 4. No lung mass on CT with contrast 5. Iron deficiency Anemia s/p IV iron 6. Leucocytosis: possibly a component of steroid / improving 7, HTN: controlled on cardizem, no hx of afib PLAN: Continue abx / bronchodilators / steroids / pulm managing, monitor WBC CT findings and pulm recs noted / May need bronchoscopy. F/u pulmonary plan repeat blood cultures negative, initial was likely contaminant Continue gentle diuresis / f/u labs DVT prophylaxis: Lovenox Supportive care Problems: Subjective 24 Hr Interval Summary Free Text/Dictation Pt has SOB still, but no acute events overnight. Exam/Review of Systems Vital Signs Vitals Vital Signs Date Time Temp Pulse Resp B/P Pulse Ox O2 Delivery O2 Flow Rate FiO2 11/12/16 16:20 97.6 95 24 98/59 96 11/12/16 15:45 Nasal Cannula 2.0 Intake and Output 11/11/16 11/11/16 11/12/16 15:00 23:00 07:00 Intake Total 1050 ml 100 ml Output Total 1100 ml 300 ml Balance -50 ml -200 ml Exam ,Constitutional: alert, oriented Head: atraumatic, normocephalic Neck: non-tender, supple Respiratory: some distant BS Cardiovascular: regular rate and rhythm Gastrointestinal: nl liver, spleen, non-tender, soft Extremities: normal pulses Results Result Diagram: 11/12/16 0953 11/12/16 0735 Results 24 hrs Laboratory Tests Test 11/12/16 07:35 11/12/16 09:53 11/12/16 13:00 White Blood Count 43.3 #H Red Blood Count 2.30 L Hemoglobin 7.0 L Hematocrit 22.3 L 18.3 L Mean Corpuscular Volume 97.0 Mean Corpuscular Hemoglobin 30.4 Mean Corpuscular Hemoglobin Concent 31.4 L Red Cell Distribution Width 17.1 H Platelet Count 217 Mean Platelet Volume 11.3 H Neutrophils % 81.0 H Band Neutrophils % 3.0 Lymphocytes % 1.0 L Monocytes % 3.0 Eosinophils % Metamyelocytes % 10.0 H Myelocytes % 2.0 H Neutrophils # 35.1 H Lymphocytes # 0.4 L Monocytes # 1.3 H Eosinophils # Metamyelocytes # 4.3 Myelocytes # 0.9 Sodium Level 141 Potassium Level 3.3 L Chloride Level 104 Carbon Dioxide Level 32 H Anion Gap 8 Blood Urea Nitrogen 67 H Creatinine 1.29 H Glucose Level 127 Calcium Level 7.7 L Magnesium Level 2.1 Vancomycin Level Trough 19.5 Medications Medications Current Medications Diltiazem HCl (Cardizem Cd) 180 mg DAILY PO Last administered on 11/12/16 08: 45; Admin Dose 180 MG; Start 11/04/16 at 09:00 Salmeterol Xinafoate/ Fluticasone (Advair 500/50 Diskus) 1 inh BID INH ; Start 11/03/16 at 21:00; Status Future Hold Tiotropium [place] (Spiriva) 1 inh DAILY INH ; Start 11/04/16 at 09:00; Status Future Hold Tamsulosin HCl (Flomax) 0.4 mg HS PO Last administered on 11/10/16 21:40; Admin Dose 0.4 MG; Start 11/03/16 at 21:00 Ondansetron HCl (Zofran Inj) 4 mg Q6H PRN IV NAUSEA AND/OR VOMITING; Start 03/12 at 15:30 Acetaminophen (Tylenol Tab) 650 mg Q6H PRN PO PAIN LEVEL 1-3 OR FEVER; Start at 15:30 Acetaminophen (Tylenol Supp) 650 mg Q6H PRN [place] PAIN LEVEL 1-3 OR FEVER; Start 11/03/16 at 15:30 Acetaminophen/ Hydrocodone Bitart ([place] (5/325)) 1 tab Q6H PRN PO MODERATE PAIN LEVEL 4-6 Last administered on 11/11/16 16:15; Admin Dose 1 TAB; Start 03/12 at 15:30 Acetaminophen/ Hydrocodone Bitart ([place] (5/325)) 2 tab Q6H PRN PO SEVERE PAIN LEVEL 7-10; Start 11/03/16 at 15:30 Morphine Sulfate (morphine) 2 mg Q4H PRN IV SEVERE PAIN LEVEL 7-10; Start 11/03 at 15:30 Magnesium Hydroxide (Milk Of Mag) 30 ml DAILY PRN PO CONSTIPATION; Start at 15:30 Bisacodyl 10 mg 10 mg DAILY PRN [place] CONSTIPATION; Start 11/03/16 at 15:30 Azithromycin (Zithromax 500mg/ NS (Pmx)) 250 ml @ 250 mls/hr Q24H IV Last administered on 11/12/16 09:41; Admin Dose 250 MLS/HR; Start 11/04/16 at 10:00 Guaifenesin 600 mg 600 mg BID PO Last administered on 11/12/16 08:43; Admin Dose 600 MG; Start 11/03/16 at 21:00 Cefepime HCl (Maxipime 2gm/50 ml (Pmx)) 50 ml @ 100 mls/hr Q12 IVPB Last administered on 11/12/16 08:42; Admin Dose 100 MLS/HR; Start 11/03/16 at 21:00 Zolpidem Tartrate (Ambien) 5 mg HS PRN PO INSOMNIA Last administered on 00:00; Admin Dose 5 MG; Start 11/04/16 at 01:30 Pantoprazole (Protonix Tab) 40 mg DAILY@06 PO Last administered on 11/12/16 06 :51; Admin Dose 40 MG; Start 11/05/16 at 06:00 Methylprednisolone Sodium Succinate (Solu-Medrol) 40 mg BID IV Last administered on 11/12/16 08:42; Admin Dose 40 MG; Start 11/04/16 at 21:00 Enoxaparin Sodium (Lovenox) 40 mg DAILY SC Last administered on 11/12/16 08:55 ; Admin Dose 40 MG; Start 11/12/16 at 09:00 Docusate Sodium (Colace) 100 mg Q12 PO Last administered on 11/12/16 08:43; Admin Dose 100 MG; Start 11/11/16 at 11:00 Furosemide 20 mg 20 mg DAILY@09 IV ; Start 11/12/16 at 09:00 Vancomycin HCl (Vancocin) 250 ml @ 125 mls/hr Q48H IVPB ; Start 11/14/16 at 14: 00 HEMA HU 19, 2017 18:30
[2016-11-12] MEDS: TAMSULOSIN (SR) 0.4 MG CAP PO SCH (21:00)
--- NOTE | 2016-11-12 21:14 | CONS ---
Date/Time of Note Date/Time of Note DATE: 11/12/16 TIME: 21:12 Assessment/Plan Assessment/Plan Chief Complaint/Hosp Course SUBJECTIVE: Mo short of breath today, getting treatment per RT, looks comfortable, no fevers MICROBIOLOGY: Blood cultures from November 05 remain negative. DIAGNOSTICS: Chest x-ray this morning revealed COPD, stable superimposed alveolar infiltrates throughout the left lung, and stable calcified granulomatous disease in the right lower lung. ANTIMICROBIALS: 1. Vancomycin. 2. Zithromax. 3. Cefepime PHYSICAL EXAMINATION: GENERAL: Chronically ill-appearing, elderly man, who is awake, in no distress. HEENT: Head atraumatic, normocephalic. Sclerae anicteric. Buccal mucosa dry. NECK: Supple. CHEST: Chest rise is symmetrical. Breath sounds diminished to the bases with B exp wheezes. HEART: S1, S2. ABDOMEN: Soft. Bowel tones present. EXTREMITIES: No cyanosis. ASSESSMENT: 1. Resolving sepsis. 2. Pneumonia with chronic obstructive pulmonary disease exacerbation and severe emphysema. 3. Chronic hypoxemia. 4. Benign prostatic hypertrophy. 5. Persistent leukocytosis, likely steroid induced. 6. ALLERGY TO SULFA AND LEVAQUIN. PLAN: Clinically unchanged, covered with appropriate abx. He is being followed by the pulmonary team. Continue present care [facility] staff Problems: Consultation Date/Type/Reason Admit Date/Time Nov 03, 2016 at 13:29 Initial Consult Date Type of Consultation: ID Exam/Review of Systems Vital Signs Vitals Vital Signs Date Time Temp Pulse Resp B/P Pulse Ox O2 Delivery O2 Flow Rate FiO2 11/12/16 20:41 96 26 98 Nasal Cannula 2.0 11/12/16 16:20 97.6 98/59 Intake and Output 11/11/16 11/11/16 11/12/16 15:00 23:00 07:00 Intake Total 1050 ml 100 ml Output Total 1100 ml 300 ml Balance -50 ml -200 ml Results Result Diagram: 11/12/16 0953 11/12/16 0735 Results 24 hrs Laboratory Tests Test 11/12/16 07:35 11/12/16 09:53 11/12/16 13:00 White Blood Count 43.3 #H Red Blood Count 2.30 L Hemoglobin 7.0 L Hematocrit 22.3 L 18.3 L Mean Corpuscular Volume 97.0 Mean Corpuscular Hemoglobin 30.4 Mean Corpuscular Hemoglobin Concent 31.4 L Red Cell Distribution Width 17.1 H Platelet Count 217 Mean Platelet Volume 11.3 H Neutrophils % 81.0 H Band Neutrophils % 3.0 Lymphocytes % 1.0 L Monocytes % 3.0 Eosinophils % Metamyelocytes % 10.0 H Myelocytes % 2.0 H Neutrophils # 35.1 H Lymphocytes # 0.4 L Monocytes # 1.3 H Eosinophils # Metamyelocytes # 4.3 Myelocytes # 0.9 Sodium Level 141 Potassium Level 3.3 L Chloride Level 104 Carbon Dioxide Level 32 H Anion Gap 8 Blood Urea Nitrogen 67 H Creatinine 1.29 H Glucose Level 127 Calcium Level 7.7 L Magnesium Level 2.1 Vancomycin Level Trough 19.5 Medications Medications Current Medications Diltiazem HCl (Cardizem Cd) 180 mg DAILY PO Last administered on 11/12/16 08: 45; Admin Dose 180 MG; Start 11/04/16 at 09:00 Salmeterol Xinafoate/ Fluticasone (Advair 500/50 Diskus) 1 inh BID INH ; Start 11/03/16 at 21:00; Status Future Hold Tiotropium [place] (Spiriva) 1 inh DAILY INH ; Start 11/04/16 at 09:00; Status Future Hold Tamsulosin HCl (Flomax) 0.4 mg HS PO Last administered on 11/10/16 21:40; Admin Dose 0.4 MG; Start 11/03/16 at 21:00 Ondansetron HCl (Zofran Inj) 4 mg Q6H PRN IV NAUSEA AND/OR VOMITING; Start 03/12 at 15:30 Acetaminophen (Tylenol Tab) 650 mg Q6H PRN PO PAIN LEVEL 1-3 OR FEVER; Start at 15:30 Acetaminophen (Tylenol Supp) 650 mg Q6H PRN [place] PAIN LEVEL 1-3 OR FEVER; Start 11/03/16 at 15:30 Acetaminophen/ Hydrocodone Bitart ([place] (5/325)) 1 tab Q6H PRN PO MODERATE PAIN LEVEL 4-6 Last administered on 11/11/16 16:15; Admin Dose 1 TAB; Start 03/12 at 15:30 Acetaminophen/ Hydrocodone Bitart ([place] (5/325)) 2 tab Q6H PRN PO SEVERE PAIN LEVEL 7-10; Start 11/03/16 at 15:30 Morphine Sulfate (morphine) 2 mg Q4H PRN IV SEVERE PAIN LEVEL 7-10; Start 11/03 at 15:30 Magnesium Hydroxide (Milk Of Mag) 30 ml DAILY PRN PO CONSTIPATION; Start at 15:30 Bisacodyl 10 mg 10 mg DAILY PRN [place] CONSTIPATION; Start 11/03/16 at 15:30 Azithromycin (Zithromax 500mg/ NS (Pmx)) 250 ml @ 250 mls/hr Q24H IV Last administered on 11/12/16 09:41; Admin Dose 250 MLS/HR; Start 11/04/16 at 10:00 Guaifenesin 600 mg 600 mg BID PO Last administered on 11/12/16 20:52; Admin Dose 600 MG; Start 11/03/16 at 21:00 Cefepime HCl (Maxipime 2gm/50 ml (Pmx)) 50 ml @ 100 mls/hr Q12 IVPB Last administered on 11/12/16 08:42; Admin Dose 100 MLS/HR; Start 11/03/16 at 21:00 Zolpidem Tartrate (Ambien) 5 mg HS PRN PO INSOMNIA Last administered on 00:00; Admin Dose 5 MG; Start 11/04/16 at 01:30 Pantoprazole (Protonix Tab) 40 mg DAILY@06 PO Last administered on 11/12/16 06 :51; Admin Dose 40 MG; Start 11/05/16 at 06:00 Methylprednisolone Sodium Succinate (Solu-Medrol) 40 mg BID IV Last administered on 11/12/16 20:51; Admin Dose 40 MG; Start 11/04/16 at 21:00 Enoxaparin Sodium (Lovenox) 40 mg DAILY SC Last administered on 11/12/16 08:55 ; Admin Dose 40 MG; Start 11/12/16 at 09:00 Docusate Sodium (Colace) 100 mg Q12 PO Last administered on 11/12/16 08:43; Admin Dose 100 MG; Start 11/11/16 at 11:00 Furosemide 20 mg 20 mg DAILY@09 IV ; Start 11/12/16 at 09:00 Vancomycin HCl (Vancocin) 250 ml @ 125 mls/hr Q48H IVPB ; Start 11/14/16 at 14: 00 ISSAC SIMEON NP Nov 12, 2016 21:14
[2016-11-13] VITALS (12 sets, daily range): BP systolic 110–135; BP diastolic 61–74; PULSE 77–95; RESP 16–18
[2016-11-13] MEDS: ZOLPIDEM 5 MG TAB PO PRN (00:13)
[2016-11-13] MEDS: CEFEPIME 2GM/50 ML (PMX) 50 ML IVPB SCH ×3 (00:20→21:07)
[2016-11-13] MEDS: ALBUTEROL/IPRATROPIUM (NEB) 3 ML AMP HHN SCH ×6 (00:46→20:45)
[2016-11-13] MEDS: PANTOPRAZOLE (EC) 40 MG TAB PO SCH (07:00)
[2016-11-13] MEDS: GUAIFENESIN LA 600 MG TABSR PO SCH ×2 (09:00→21:07)
[2016-11-13] MEDS: DILTIAZEM (CD) 180 MG CAP PO SCH (09:08)
[2016-11-13] MEDS: DOCUSATE SODIUM 100 MG CAP PO SCH ×2 (09:08→21:07)
[2016-11-13] MEDS: FUROSEMIDE 20 MG INJ IV SCH (09:08)
[2016-11-13] MEDS: METHYLPREDNISOLONE 40 MG INJ IV SCH ×2 (09:11→21:07)
[2016-11-13] MEDS: ENOXAPARIN 40 MG/0.4 ML SYG SC SCH (09:23)
[2016-11-13] MEDS: AZITHROMYCIN 500MG/NS (PMX) 250 ML IV SCH (10:00)
--- NOTE | 2016-11-13 10:41 | CONS ---
Date/Time of Note Date/Time of Note DATE: 11/13/16 TIME: 10:33 Assessment/Plan Assessment/Plan Additional Assessment/Plan Assessment and recommendations; 1. Patient admitted with severe COPD exacerbation with possibly superimposed bronchopneumonia. Patient however has significant leukocytosis which has been refractory to broad-spectrum antibiotic coverage. 2. 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 Stability of fungal infection cannot be entirely excluded. At this time I would recommend stopping current antibiotic regimen and starting the patient on antifungal treatment. Continue other medications. Consultation Date/Type/Reason Admit Date/Time Nov 03, 2016 at 13:29 Type of Consultation: Pulmonary 24 HR Interval Summary Free Text/Dictation Patient condition remains unchanged. Still complains of shortness of breath upon minimal exertion. But denies any coughing or sputum production. Any fever chills or chest pain. General exam; elderly male, awake currently in no distress. Exam/Review of Systems Vital Signs Vitals Vital Signs Date Time Temp Pulse Resp B/P Pulse Ox O2 Delivery O2 Flow Rate FiO2 11/13/16 08:58 95 22 98 Nasal Cannula 2.0 11/13/16 08:05 98.0 119/74 Intake and Output 11/12/16 11/12/16 11/13/16 15:00 23:00 07:00 Intake Total 300 ml 1450 ml Output Total 300 ml Balance 300 ml 1150 ml Exam HEENT exam is; supple neck, no JVD. No lymphadenopathy. Midline trachea. No thyromegaly. Patient a few missing teeth. Chest examination; diminished breath sound throughout. No added sound. S1-S2 audible, no murmurs. Regular rhythm. Abdomen examination; soft, nontender. No organomegaly. Bowel sounds audible. Extremity examination; trace generalized edema. Patient has a multiple ecchymosis involving all 4 extremities. Pulses 1+ bilaterally. SHANK SORTER examination; no focal deficit. Results Result Diagram: 11/12/16 0953 11/12/16 0735 Results 24 hrs Laboratory Tests Test 11/12/16 13:00 11/13/16 07:20 Vancomycin Level Trough 19.5 Lab Scanned Report BLOOD TRANSFUSION Medications Medications Current Medications Diltiazem HCl (Cardizem Cd) 180 mg DAILY PO Last administered on 11/13/16t 09: 08; Admin Dose 180 MG; Start 11/04/16 at 09:00 Salmeterol Xinafoate/ Fluticasone (Advair 500/50 Diskus) 1 inh BID INH ; Start 11/03/16 at 21:00; Status Future Hold Tiotropium [place] (Spiriva) 1 inh DAILY INH ; Start 11/04/16 at 09:00; Status Future Hold Tamsulosin HCl (Flomax) 0.4 mg HS PO Last administered on 11/10/16 21:40; Admin Dose 0.4 MG; Start 11/03/16 at 21:00 Ondansetron HCl (Zofran Inj) 4 mg Q6H PRN IV NAUSEA AND/OR VOMITING; Start 03/12 at 15:30 Acetaminophen (Tylenol Tab) 650 mg Q6H PRN PO PAIN LEVEL 1-3 OR FEVER; Start at 15:30 Acetaminophen (Tylenol Supp) 650 mg Q6H PRN [place] PAIN LEVEL 1-3 OR FEVER; Start 11/03/16 at 15:30 Acetaminophen/ Hydrocodone Bitart ([place] (5/325)) 1 tab Q6H PRN PO MODERATE PAIN LEVEL 4-6 Last administered on 11/11/16 16:15; Admin Dose 1 TAB; Start 03/12 at 15:30 Acetaminophen/ Hydrocodone Bitart ([place] (5/325)) 2 tab Q6H PRN PO SEVERE PAIN LEVEL 7-10; Start 11/03/16 at 15:30 Morphine Sulfate (morphine) 2 mg Q4H PRN IV SEVERE PAIN LEVEL 7-10; Start 11/03 at 15:30 Magnesium Hydroxide (Milk Of Mag) 30 ml DAILY PRN PO CONSTIPATION; Start at 15:30 Bisacodyl 10 mg 10 mg DAILY PRN [place] CONSTIPATION; Start 11/03/16 at 15:30 Azithromycin (Zithromax 500mg/ NS (Pmx)) 250 ml @ 250 mls/hr Q24H IV Last administered on 11/13/16 10:00; Admin Dose 250 MLS/HR; Start 11/04/16 at 10:00 Guaifenesin 600 mg 600 mg BID PO Last administered on 11/12/16 20:52; Admin Dose 600 MG; Start 11/03/16 at 21:00 Cefepime HCl (Maxipime 2gm/50 ml (Pmx)) 50 ml @ 100 mls/hr Q12 IVPB Last administered on 11/13/16 09:13; Admin Dose 100 MLS/HR; Start 11/03/16 at 21:00 Zolpidem Tartrate (Ambien) 5 mg HS PRN PO INSOMNIA Last administered on 00:13; Admin Dose 5 MG; Start 11/04/16 at 01:30 Pantoprazole (Protonix Tab) 40 mg DAILY@06 PO Last administered on 11/12/16 06 :51; Admin Dose 40 MG; Start 11/05/16 at 06:00 Methylprednisolone Sodium Succinate (Solu-Medrol) 40 mg BID IV Last administered on 11/13/16 09:11; Admin Dose 40 MG; Start 11/04/16 at 21:00 Enoxaparin Sodium (Lovenox) 40 mg DAILY SC Last administered on 11/13/16 09:23 ; Admin Dose 40 MG; Start 11/12/16 at 09:00 Docusate Sodium (Colace) 100 mg Q12 PO Last administered on 11/13/16 09:08; Admin Dose 100 MG; Start 11/11/16 at 11:00 Furosemide 20 mg 20 mg DAILY@09 IV Last administered on 11/13/16 09:08; Admin Dose 20 MG; Start 11/12/16 at 09:00 Vancomycin HCl (Vancocin) 250 ml @ 125 mls/hr Q48H IVPB ; Start 11/14/16 at 14: 00 SHONNA MONTERO Nov 13, 2016 10:41
--- NOTE | 2016-11-13 12:49 | PN ---
DATE: 11/13/2016 SUBJECTIVE: The patient is lying comfortably in bed, comfortable on nasal cannula. No fevers. Whi te blood cell count yesterday went up to 43.3. MICROBIOLOGY: Blood cultures remain negative since 11/05/2016. Sputum culture grew corynebacterium species. ANTIMICROBIALS: The patient is on: 1. Vancomycin. 2. Cefepime. 3. Zithromax. 4. He is also getting steroids. ALLERGIES: 1. SULFA. 2. LEVAQUIN. PHYSICAL EXAMINATION: GENERAL: Chronically ill-appearing, elderly man in no distress. HEENT: Head atraumatic, normocephalic. Sclerae anicteric. Buccal mucosa dry. NECK: Supple. CHEST: Rise symmetrical. Breath sounds with bilateral expiratory wheezes. HEART: S1, S2. ABDOMEN: Soft, bowel sounds present. EXTREMITIES: Without edema. ASSESSMENT: 1. Systemic inflammatory response syndrome with persistent leukocytosis, patient remains on steroid taper. 2. Pneumonia with severe chronic obstructive pulmonary disease exacerbation. 3. Severe emphysema. 4. Acute on chronic respiratory failure. PLAN: The patient remains clinically unchanged. He is being seen by pulmonary team. We will start him on Diflucan given persistent leukocytosis and long-term antibiotics. We will repeat blood and urine cultures. Dictated By: ISSAC SIMEON CODING SPEC for [employer] Conf#: [id number] DID#: [id number]
[2016-11-13 14:26] LABS: ADD SCAN DIFF NO
[2016-11-13 14:31] LABS: ABNORMAL IP MESSAGE 1; HEMATOCRIT 28.5 % (42.0-52.0); HEMOGLOBIN 9.6 g/dl (14.0-18.0); MEAN CORPUSCULAR HEMOGLOBIN 28.5 pg (29.0-33.0); MEAN CORPUSCULAR HGB CONC 33.7 g/dl (32.0-37.0); MEAN CORPUSCULAR VOLUME 84.6 fl (82.0-101.0); MEAN PLATELET VOLUME 11.2 fl (7.4-10.4); PLATELET COUNT 149 10^3/UL (140-415); RED BLOOD COUNT 3.37 10^6/ul (4.70-6.10); WHITE BLOOD COUNT 38.5 10^3/ul (4.8-10.8)
[2016-11-13 14:53] LABS: CALCIUM 7.5 mg/dl (8.4-10.2); CREATININE 1.29 mg/dl (0.61-1.24); POTASSIUM 3.8 mmol/L (3.5-5.1)
--- NOTE | 2016-11-13 15:18 | PN ---
Date/Time of Note Date/Time of Note DATE: 11/13/16 TIME: 15:12 Assessment/Plan VTE Prophylaxis VTE Prophylaxis Intervention: LMWH Lines/Catheters IV [facility] [place] Urinary Cath still in place: No Assessment/Plan Chief Complaint/Hosp Course Assessment/Plan: 71 M with: 1. Sepsis secondary to Health care associated pneumonia: Corynebacterium - WBC still elevated, but slightly improved. - Continue abx / bronchodilators / steroids / pulm managing, monitor WBC - adding fungal meds as well today 2. Severe Chronic Emphysema with exacerbation and biapical bullae - F/u pulmonary plan, Duoneb's, may need bronchoscopy. 3. Chronic BPH - monitor 4. Iron deficiency Anemia s/p IV iron and s/p blood transfusion yesterday - monitior CBC 5. Leucocytosis: possibly a component of steroid / improving - monitor, abx 7, HTN: controlled on cardizem, no hx of afib DVT prophylaxis: Lovenox Problems: Subjective 24 Hr Interval Summary Free Text/Dictation Pt had blood transfusion yesterday, less SOB. Exam/Review of Systems Vital Signs Vitals Vital Signs Date Time Temp Pulse Resp B/P Pulse Ox O2 Delivery O2 Flow Rate FiO2 11/13/16 15:05 98.4 94 16 114/61 95 11/13/16 13:13 Nasal Cannula 2.0 Intake and Output 11/12/16 11/12/16 11/13/16 15:00 23:00 07:00 Intake Total 300 ml 1450 ml Output Total 300 ml Balance 300 ml 1150 ml Exam ,Constitutional: alert, oriented Head: atraumatic, normocephalic Neck: non-tender, supple Respiratory: some distant BS Cardiovascular: regular rate and rhythm Gastrointestinal: nl liver, spleen, non-tender, soft Extremities: normal pulses Results Result Diagram: 11/13/16 1410 11/13/16 1410 Results 24 hrs Laboratory Tests Test 11/13/16 07:20 11/13/16 14:10 Lab Scanned Report BLOOD TRANSFUSION White Blood Count 38.5 H Red Blood Count 3.37 #L Hemoglobin 9.6 #L Hematocrit 28.5 #L Mean Corpuscular Volume 84.6 Mean Corpuscular Hemoglobin 28.5 L Mean Corpuscular Hemoglobin Concent 33.7 Red Cell Distribution Width 24.0 #H Platelet Count 149 # Mean Platelet Volume 11.2 H Neutrophils % Eosinophils % Neutrophils # Eosinophils # Sodium Level 141 Potassium Level 3.8 Chloride Level 104 Carbon Dioxide Level 30 Anion Gap 11 Blood Urea Nitrogen 67 H Creatinine 1.29 H Glucose Level 130 Calcium Level 7.5 L Medications Medications Current Medications Diltiazem HCl (Cardizem Cd) 180 mg DAILY PO Last administered on 11/13/16 09: 08; Admin Dose 180 MG; Start 11/04/16 at 09:00 Salmeterol Xinafoate/ Fluticasone (Advair 500/50 Diskus) 1 inh BID INH ; Start 11/03/16 at 21:00; Status Future Hold Tiotropium [place] (Spiriva) 1 inh DAILY INH ; Start 11/04/16 at 09:00; Status Future Hold Tamsulosin HCl (Flomax) 0.4 mg HS PO Last administered on 11/10/16 21:40; Admin Dose 0.4 MG; Start 11/03/16 at 21:00 Ondansetron HCl (Zofran Inj) 4 mg Q6H PRN IV NAUSEA AND/OR VOMITING; Start 03/12 at 15:30 Acetaminophen (Tylenol Tab) 650 mg Q6H PRN PO PAIN LEVEL 1-3 OR FEVER; Start at 15:30 Acetaminophen (Tylenol Supp) 650 mg Q6H PRN [place] PAIN LEVEL 1-3 OR FEVER; Start 11/03/16 at 15:30 Acetaminophen/ Hydrocodone Bitart ([place] (5/325)) 1 tab Q6H PRN PO MODERATE PAIN LEVEL 4-6 Last administered on 11/11/16 16:15; Admin Dose 1 TAB; Start 03/12 at 15:30 Acetaminophen/ Hydrocodone Bitart ([place] (5/325)) 2 tab Q6H PRN PO SEVERE PAIN LEVEL 7-10; Start 11/03/16 at 15:30 Morphine Sulfate (morphine) 2 mg Q4H PRN IV SEVERE PAIN LEVEL 7-10; Start 11/03 at 15:30 Magnesium Hydroxide (Milk Of Mag) 30 ml DAILY PRN PO CONSTIPATION; Start at 15:30 Bisacodyl 10 mg 10 mg DAILY PRN [place] CONSTIPATION; Start 11/03/16 at 15:30 Azithromycin (Zithromax 500mg/ NS (Pmx)) 250 ml @ 250 mls/hr Q24H IV Last administered on 11/13/16 10:00; Admin Dose 250 MLS/HR; Start 11/04/16 at 10:00 Guaifenesin 600 mg 600 mg BID PO Last administered on 11/12/16 20:52; Admin Dose 600 MG; Start 11/03/16 at 21:00 Cefepime HCl (Maxipime 2gm/50 ml (Pmx)) 50 ml @ 100 mls/hr Q12 IVPB Last administered on 11/13/16 09:13; Admin Dose 100 MLS/HR; Start 11/03/16 at 21:00 Zolpidem Tartrate (Ambien) 5 mg HS PRN PO INSOMNIA Last administered on 00:13; Admin Dose 5 MG; Start 11/04/16 at 01:30 Pantoprazole (Protonix Tab) 40 mg DAILY@06 PO Last administered on 11/12/16 06 :51; Admin Dose 40 MG; Start 11/05/16 at 06:00 Methylprednisolone Sodium Succinate (Solu-Medrol) 40 mg BID IV Last administered on 11/13/16 09:11; Admin Dose 40 MG; Start 11/04/16 at 21:00 Enoxaparin Sodium (Lovenox) 40 mg DAILY SC Last administered on 11/13/16 09:23 ; Admin Dose 40 MG; Start 11/12/16 at 09:00 Docusate Sodium (Colace) 100 mg Q12 PO Last administered on 11/13/16 09:08; Admin Dose 100 MG; Start 11/11/16 at 11:00 Furosemide 20 mg 20 mg DAILY@09 IV Last administered on 11/13/16 09:08; Admin Dose 20 MG; Start 11/12/16 at 09:00 Vancomycin HCl (Vancocin) 250 ml @ 125 mls/hr Q48H IVPB ; Start 11/14/16 at 14: 00 HEMA HU Nov 13, 2016 15:18
[2016-11-13] MEDS ORDERED: LIDOCAINE 1% (MPF) 5 ML VIAL SC ONE (15:30)
[2016-11-13] MEDS ORDERED: FLUCONAZOLE 200 MG/NS (PMX) 100 ML IVPB SCH (15:30)
[2016-11-13 16:35] LABS: LYMPHOCYTES # 0.8 10^3/ul (0.8-2.9); MONOCYTE # 1.9 10^3/ul (0.3-0.9); NEUTROPHIL # 35.4 10^3/ul (1.6-7.5)
[2016-11-13] MEDS: FLUCONAZOLE 200 MG/NS (PMX) 100 ML IVPB SCH (16:46)
[2016-11-13] MEDS: TAMSULOSIN (SR) 0.4 MG CAP PO SCH (21:07)
[2016-11-14] VITALS (12 sets, daily range): BP systolic 114–129; BP diastolic 59–68; PULSE 79–103; RESP 16–19
[2016-11-14] MEDS: ZOLPIDEM 5 MG TAB PO PRN (01:01)
[2016-11-14] MEDS: ALBUTEROL/IPRATROPIUM (NEB) 3 ML AMP HHN SCH ×6 (01:12→20:26)
[2016-11-14] MEDS: PANTOPRAZOLE (EC) 40 MG TAB PO SCH (06:37)
[2016-11-14 07:41] LABS: ADD SCAN DIFF NO
[2016-11-14 07:46] LABS: ABNORMAL IP MESSAGE 1; HEMATOCRIT 25.6 % (42.0-52.0); HEMOGLOBIN 8.5 g/dl (14.0-18.0); MEAN CORPUSCULAR HEMOGLOBIN 28.6 pg (29.0-33.0); MEAN CORPUSCULAR HGB CONC 33.2 g/dl (32.0-37.0); MEAN CORPUSCULAR VOLUME 86.2 fl (82.0-101.0); PLATELET COUNT 137 10^3/UL (140-415); RED BLOOD COUNT 2.97 10^6/ul (4.70-6.10); RED CELL DISTRIBUTION WIDTH 23.8 % (11.5-14.5); WHITE BLOOD COUNT 35.8 10^3/ul (4.8-10.8)
[2016-11-14 08:02] LABS: CALCIUM 8.3 mg/dl (8.4-10.2); CREATININE 1.24 mg/dl (0.61-1.24); POTASSIUM 4.4 mmol/L (3.5-5.1)
[2016-11-14] MEDS: FUROSEMIDE 20 MG INJ IV SCH (09:00)
[2016-11-14] MEDS: GUAIFENESIN LA 600 MG TABSR PO SCH ×2 (09:05→22:28)
[2016-11-14] MEDS: DOCUSATE SODIUM 100 MG CAP PO SCH ×2 (09:05→22:28)
[2016-11-14] MEDS: METHYLPREDNISOLONE 40 MG INJ IV SCH ×2 (09:06→22:28)
[2016-11-14] MEDS: DILTIAZEM (CD) 180 MG CAP PO SCH (09:06)
[2016-11-14] MEDS: CEFEPIME 2GM/50 ML (PMX) 50 ML IVPB SCH ×2 (09:06→22:34)
[2016-11-14] MEDS: ENOXAPARIN 40 MG/0.4 ML SYG SC SCH (09:26)
[2016-11-14 09:37] LABS: LYMPHOCYTES # 1.1 10^3/ul (0.8-2.9); MONOCYTE # 2.5 10^3/ul (0.3-0.9); MYELOCYTES # 0.4; NEUTROPHIL # 30.8 10^3/ul (1.6-7.5)
[2016-11-14 09:38] LABS: ANISOCYTOSIS 1+; HYPOCHROMASIA 1+
[2016-11-14] MEDS: AZITHROMYCIN 500MG/NS (PMX) 250 ML IV SCH (10:49)
--- NOTE | 2016-11-14 12:19 | PN ---
DATE: 11/14/2016 SUBJECTIVE: No acute events overnight. The patient is sleeping, breathing comfortably on nasal can nula. No fevers. He is in no distress. No shortness of breath at rest. LABORATORY: WBC 35.8, H and H 8.5 and 25.6, platelets 137, neutrophils 86, bands 3, lymphs 3, monos 7. BUN 68, creatinine 1.24. ANTIMICROBIALS: 1. Fluconazole day #2. 2. Vancomycin 3. Zithromax. 4. Cefepime day #12. ALLERGIES: SULFA AND LEVAQUIN PHYSICAL EXAMINATION: GENERAL: Fragile, elderly man who is sleeping, in no distress. HEENT: Head atraumatic, normocephalic. Sclerae anicteric. Buccal mucosa dry. NECK: Supple. CHEST: Rise symmetrical. Breath sounds diminished to bases. HEART: S1, S2. ABDOMEN: Soft, bowel tones present. EXTREMITIES: Without cyanosis. ASSESSMENT: 1. Acute on chronic respiratory failure. 2. End-stage emphysema and chronic obstructive pulmonary disease. 3. Pneumonia. 4. Leukocytosis, likely steroid induced. 5. Status post coagulase-negative staph bacteremia with repeat blood cultures negative, consistent with contaminant. 6. ALLERGY TO SULFA AND LEVAQUIN. PLAN: The patient remains stable, completing antibiotics. We are going to discontinue Zithromax. Keep him on vancomycin and cefepime for a couple more days. Continue Diflucan, steroid taper. Foll ow pulmonary recommendations. Dictated By: ISSAC SIMEON [employer]ES [employer] for [employer] Conf#: [id number] DID#: [id number]
--- NOTE | 2016-11-14 12:52 | CONS ---
Date/Time of Note Date/Time of Note DATE: 11/14/16 TIME: 12:50 Assessment/Plan Assessment/Plan Additional Assessment/Plan Assessment and recommendations; 1. Patient admitted with severe supra exacerbation and bronchopneumonia currently on broad-spectrum antibiotics as well as antifungal treatment. 2. Improved leukocytosis. 3. Severe underlying bullous emphysema with severe fibrotic changes involving left upper lobe. 4. Generalized deconditioning. Continue current treatment. Patient could potentially benefit from transfer to a rehab center. Consultation Date/Type/Reason Admit Date/Time Nov 03, 2016 at 13:29 Type of Consultation: Pulmonary 24 HR Interval Summary Free Text/Dictation Patient condition remains stable. Remains awake and alert. Still complains of shortness breath upon minimal exertion. Complains of very scant cough and chest congestion. General exam; elderly male, awake alert currently in no distress. Exam/Review of Systems Vital Signs Vitals Vital Signs Date Time Temp Pulse Resp B/P Pulse Ox O2 Delivery O2 Flow Rate FiO2 11/14/16 12:23 103 11/14/16 11:24 98.3 18 129/63 97 11/14/16 08:16 Nasal Cannula 2.0 Intake and Output 11/13/16 11/13/16 11/14/16 15:00 23:00 07:00 Intake Total 650 ml 950 ml 500 ml Output Total 850 ml 1375 ml 900 ml Balance -200 ml -425 ml -400 ml Exam HEENT exam is; supple neck, no JVD. No lymphadenopathy. Midline trachea. No thyromegaly. Patient has fair dentition. Chest examination; diminished breath sounds throughout. No added sound. S1-S2 audible, no murmurs. Regular rhythm. Abdomen examination; soft, nondistended. No or organomegaly. Bowel sounds audible. Extremity examination; trace generalized edema. There are multiple ecchymosis involving all 4 extremities. [employer] examination; no focal deficit. The patient is a severe generalized weakness. Results Result Diagram: 11/14/16 0715 11/14/16 0715 Results 24 hrs Laboratory Tests Test 11/13/16 14:10 11/14/16 07:15 White Blood Count 38.5 H 35.8 H Red Blood Count 3.37 #L 2.97 L Hemoglobin 9.6 #L 8.5 L Hematocrit 28.5 #L 25.6 L Mean Corpuscular Volume 84.6 86.2 Mean Corpuscular Hemoglobin 28.5 L 28.6 L Mean Corpuscular Hemoglobin Concent 33.7 33.2 Red Cell Distribution Width 24.0 #H 23.8 H Platelet Count 149 # 137 L Mean Platelet Volume 11.2 H 11.0 H Neutrophils % 92.0 H 86.0 H Band Neutrophils % 1.0 3.0 Lymphocytes % 2.0 L 3.0 L Monocytes % 5.0 7.0 Eosinophils % Neutrophils # 35.4 H 30.8 H Lymphocytes # 0.8 1.1 Monocytes # 1.9 H 2.5 H Eosinophils # Sodium Level 141 144 Potassium Level 3.8 4.4 Chloride Level 104 108 Carbon Dioxide Level 30 30 Anion Gap 11 10 Blood Urea Nitrogen 67 H 68 H Creatinine 1.29 H 1.24 Glucose Level 130 94 Calcium Level 7.5 L 8.3 L Myelocytes % 1.0 H Myelocytes # 0.4 Hypochromasia 1+ Anisocytosis 1+ Medications Medications Current Medications Diltiazem HCl (Cardizem Cd) 180 mg DAILY PO Last administered on 11/14/16 09: 06; Admin Dose 180 MG; Start 11/04/16 at 09:00 Salmeterol Xinafoate/ Fluticasone (Advair 500/50 Diskus) 1 inh BID INH ; Start 11/03/16 at 21:00; Status Future Hold Tiotropium [place] (Spiriva) 1 inh DAILY INH ; Start 11/04/16 at 09:00; Status Future Hold Tamsulosin HCl (Flomax) 0.4 mg HS PO Last administered on 11/13/16 21:07; Admin Dose 0.4 MG; Start 11/03/16 at 21:00 Ondansetron HCl (Zofran Inj) 4 mg Q6H PRN IV NAUSEA AND/OR VOMITING; Start 03/12 at 15:30 Acetaminophen (Tylenol Tab) 650 mg Q6H PRN PO PAIN LEVEL 1-3 OR FEVER; Start at 15:30 Acetaminophen (Tylenol Supp) 650 mg Q6H PRN [place] PAIN LEVEL 1-3 OR FEVER; Start 11/03/16 at 15:30 Acetaminophen/ Hydrocodone Bitart ([place] (5/325)) 1 tab Q6H PRN PO MODERATE PAIN LEVEL 4-6 Last administered on 11/11/16 16:15; Admin Dose 1 TAB; Start 03/12 at 15:30 Acetaminophen/ Hydrocodone Bitart ([place] (5/325)) 2 tab Q6H PRN PO SEVERE PAIN LEVEL 7-10; Start 11/03/16 at 15:30 Morphine Sulfate (morphine) 2 mg Q4H PRN IV SEVERE PAIN LEVEL 7-10; Start 11/03 at 15:30 Magnesium Hydroxide (Milk Of Mag) 30 ml DAILY PRN PO CONSTIPATION; Start at 15:30 Bisacodyl 10 mg 10 mg DAILY PRN [place] CONSTIPATION; Start 11/03/16 at 15:30 Azithromycin (Zithromax 500mg/ NS (Pmx)) 250 ml @ 250 mls/hr Q24H IV Last administered on 11/14/16 10:49; Admin Dose 250 MLS/HR; Start 11/04/16 at 10:00 Guaifenesin 600 mg 600 mg BID PO Last administered on 11/14/16 09:05; Admin Dose 600 MG; Start 11/03/16 at 21:00 Cefepime HCl (Maxipime 2gm/50 ml (Pmx)) 50 ml @ 100 mls/hr Q12 IVPB Last administered on 11/14/16 09:06; Admin Dose 100 MLS/HR; Start 11/03/16 at 21:00 Zolpidem Tartrate (Ambien) 5 mg HS PRN PO INSOMNIA Last administered on 01:01; Admin Dose 5 MG; Start 11/04/16 at 01:30 Pantoprazole (Protonix Tab) 40 mg DAILY@06 PO Last administered on 11/14/16 06 :37; Admin Dose 40 MG; Start 11/05/16 at 06:00 Methylprednisolone Sodium Succinate (Solu-Medrol) 40 mg BID IV Last administered on 11/14/16 09:06; Admin Dose 40 MG; Start 11/04/16 at 21:00 Enoxaparin Sodium (Lovenox) 40 mg DAILY SC Last administered on 11/14/16 09:26 ; Admin Dose 40 MG; Start 11/12/16 at 09:00 Docusate Sodium (Colace) 100 mg Q12 PO Last administered on 11/14/16 09:05; Admin Dose 100 MG; Start 11/11/16 at 11:00 Furosemide 20 mg 20 mg DAILY@09 IV Last administered on 11/13/16 09:08; Admin Dose 20 MG; Start 11/12/16 at 09:00 Vancomycin HCl 250 ml @ 125 mls/hr Q48H IVPB ; Start 11/14/16 at 14:00 Fluconazole (Diflucan 200 Mg/ NS (Pmx)) 100 ml @ 100 mls/hr Q24H IVPB Last administered on 11/13/16 16:46; Admin Dose 100 MLS/HR; Start 11/13/16 at 16:00 SHONNA MONTERO Nov 14, 2016 12:52
[2016-11-14] MEDS ORDERED: VANCOMYCIN 1 GM in NS 250 ML IVPB SCH (14:00)
[2016-11-14] MEDS: MAGNESIUM HYDROXIDE 30ML CUP PO PRN (14:49)
--- NOTE | 2016-11-14 16:30 | PN ---
Date/Time of Note Date/Time of Note DATE: 11/14/16 TIME: 16:25 Assessment/Plan VTE Prophylaxis VTE Prophylaxis Intervention: LMWH Lines/Catheters IV [facility]from [facility] Saline Lock Urinary Cath still in place: No Assessment/Plan Chief Complaint/Hosp Course Assessment/Plan: 71 M with: 1. Sepsis secondary to Health care associated pneumonia: Corynebacterium - WBC still elevated - Continue abx / bronchodilators / steroids (consider taper) / pulm managing , monitor WBC - antifungal meds as well 2. Severe Chronic Emphysema with exacerbation and biapical bullae - F/u pulmonary plan, Duoneb's, may need bronchoscopy. 3. Chronic BPH - monitor 4. Iron deficiency Anemia s/p IV iron and s/p blood transfusion yesterday - monitior CBC 5. Leucocytosis: possibly a component of steroid / improving - monitor, abx 7, HTN: controlled on cardizem, no hx of afib - for PICC placement as well today DVT prophylaxis: Lovenox Problems: Subjective 24 Hr Interval Summary Free Text/Dictation Pt still on Q4 breathing tx's, refusing SNF placement. Exam/Review of Systems Vital Signs Vitals Vital Signs Date Time Temp Pulse Resp B/P Pulse Ox O2 Delivery O2 Flow Rate FiO2 11/14/16 16:17 98.2 78 18 118/63 98 11/14/16 13:55 Nasal Cannula 2.0 Intake and Output 11/13/16 11/13/16 11/14/16 15:00 23:00 07:00 Intake Total 650 ml 950 ml 500 ml Output Total 850 ml 1375 ml 900 ml Balance -200 ml -425 ml -400 ml Exam Constitutional: alert, oriented Head: atraumatic, normocephalic Neck: non-tender, supple Respiratory: some distant BS Cardiovascular: regular rate and rhythm Gastrointestinal: nl liver, spleen, non-tender, soft Extremities: normal pulses Results Result Diagram: 11/14/1615 11/14/16 0715 Results 24 hrs Laboratory Tests Test 11/14/16 07:15 White Blood Count 35.8 H Red Blood Count 2.97 L Hemoglobin 8.5 L Hematocrit 25.6 L Mean Corpuscular Volume 86.2 Mean Corpuscular Hemoglobin 28.6 L Mean Corpuscular Hemoglobin Concent 33.2 Red Cell Distribution Width 23.8 H Platelet Count 137 L Mean Platelet Volume 11.0 H Neutrophils % 86.0 H Band Neutrophils % 3.0 Lymphocytes % 3.0 L Monocytes % 7.0 Eosinophils % Myelocytes % 1.0 H Neutrophils # 30.8 H Lymphocytes # 1.1 Monocytes # 2.5 H Eosinophils # Myelocytes # 0.4 Hypochromasia 1+ Anisocytosis 1+ Sodium Level 144 Potassium Level 4.4 Chloride Level 108 Carbon Dioxide Level 30 Anion Gap 10 Blood Urea Nitrogen 68 H Creatinine 1.24 Glucose Level 94 Calcium Level 8.3 L Medications Medications Current Medications Diltiazem HCl (Cardizem Cd) 180 mg DAILY PO Last administered on 11/14/16 09: 06; Admin Dose 180 MG; Start 11/04/16 at 09:00 Salmeterol Xinafoate/ Fluticasone (Advair 500/50 Diskus) 1 inh BID INH ; Start 11/03/16 at 21:00; Status Future Hold Tiotropium [place] (Spiriva) 1 inh DAILY INH ; Start 11/04/16 at 09:00; Status Future Hold Tamsulosin HCl (Flomax) 0.4 mg HS PO Last administered on 11/13/16 21:07; Admin Dose 0.4 MG; Start 11/03/16 at 21:00 Ondansetron HCl (Zofran Inj) 4 mg Q6H PRN IV NAUSEA AND/OR VOMITING; Start 03/12 at 15:30 Acetaminophen (Tylenol Tab) 650 mg Q6H PRN PO PAIN LEVEL 1-3 OR FEVER; Start at 15:30 Acetaminophen (Tylenol Supp) 650 mg Q6H PRN [place] PAIN LEVEL 1-3 OR FEVER; Start 11/03/16 at 15:30 Acetaminophen/ Hydrocodone Bitart ([place] (5/325)) 1 tab Q6H PRN PO MODERATE PAIN LEVEL 4-6 Last administered on 11/11/16 16:15; Admin Dose 1 TAB; Start 03/12 at 15:30 Acetaminophen/ Hydrocodone Bitart ([place] (5/325)) 2 tab Q6H PRN PO SEVERE PAIN LEVEL 7-10; Start 11/03/16 at 15:30 Morphine Sulfate (morphine) 2 mg Q4H PRN IV SEVERE PAIN LEVEL 7-10; Start 11/03 at 15:30 Magnesium Hydroxide (Milk Of Mag) 30 ml DAILY PRN PO CONSTIPATION Last administered on 11/14/16 14:49; Admin Dose 30 ML; Start 11/03/16 at 15:30 Bisacodyl 10 mg 10 mg DAILY PRN [place] CONSTIPATION; Start 11/03/16 at 15:30 Azithromycin (Zithromax 500mg/ NS (Pmx)) 250 ml @ 250 mls/hr Q24H IV Last administered on 11/14/16 10:49; Admin Dose 250 MLS/HR; Start 11/04/16 at 10:00 Guaifenesin 600 mg 600 mg BID PO Last administered on 11/14/16 09:05; Admin Dose 600 MG; Start 11/03/16 at 21:00 Cefepime HCl (Maxipime 2gm/50 ml (Pmx)) 50 ml @ 100 mls/hr Q12 IVPB Last administered on 11/14/16 09:06; Admin Dose 100 MLS/HR; Start 11/03/16 at 21:00 Zolpidem Tartrate (Ambien) 5 mg HS PRN PO INSOMNIA Last administered on 01:01; Admin Dose 5 MG; Start 11/04/16 at 01:30 Pantoprazole (Protonix Tab) 40 mg DAILY@06 PO Last administered on 11/14/16 06 :37; Admin Dose 40 MG; Start 11/05/16 at 06:00 Methylprednisolone Sodium Succinate (Solu-Medrol) 40 mg BID IV Last administered on 11/14/16 09:06; Admin Dose 40 MG; Start 11/04/16 at 21:00 Enoxaparin Sodium (Lovenox) 40 mg DAILY SC Last administered on 11/14/16 09:26 ; Admin Dose 40 MG; Start 11/12/16 at 09:00 Docusate Sodium (Colace) 100 mg Q12 PO Last administered on 11/14/16 09:05; Admin Dose 100 MG; Start 11/11/16 at 11:00 Furosemide 20 mg 20 mg DAILY@09 IV Last administered on 11/13/16 09:08; Admin Dose 20 MG; Start 11/12/16 at 09:00 Vancomycin HCl 250 ml @ 125 mls/hr Q48H IVPB Last administered on 11/14/16 14 :46; Admin Dose 125 MLS/HR; Start 11/14/16 at 14:00 Fluconazole (Diflucan 200 Mg/ NS (Pmx)) 100 ml @ 100 mls/hr Q24H IVPB Last administered on 11/13/16t 16:46; Admin Dose 100 MLS/HR; Start 11/13/16 at 16:00 HEMA HU Nov 14, 2016 16:30
[2016-11-14] MEDS: FLUCONAZOLE 200 MG/NS (PMX) 100 ML IVPB SCH (17:33)
[2016-11-14] MEDS: TAMSULOSIN (SR) 0.4 MG CAP PO SCH (22:28)
[2016-11-15] VITALS (10 sets, daily range): BP systolic 114–135; BP diastolic 61–74; PULSE 72–109; RESP 17–18
[2016-11-15] MEDS: ALBUTEROL/IPRATROPIUM (NEB) 3 ML AMP HHN SCH ×6 (00:24→22:11)
[2016-11-15] MEDS: ZOLPIDEM 5 MG TAB PO PRN ×2 (00:33→22:24)
[2016-11-15] MEDS: HYDROCODONE/APAP (5/325) TAB PO PRN (04:29)
[2016-11-15] MEDS: PANTOPRAZOLE (EC) 40 MG TAB PO SCH (06:19)
[2016-11-15] MEDS: DOCUSATE SODIUM 100 MG CAP PO SCH ×2 (09:42→21:14)
[2016-11-15] MEDS: METHYLPREDNISOLONE 40 MG INJ IV SCH (09:43)
[2016-11-15] MEDS: MAGNESIUM HYDROXIDE 30ML CUP PO PRN (09:43)
[2016-11-15] MEDS: FUROSEMIDE 20 MG INJ IV SCH (09:43)
[2016-11-15] MEDS: GUAIFENESIN LA 600 MG TABSR PO SCH ×2 (09:43→21:14)
[2016-11-15] MEDS: DILTIAZEM (CD) 180 MG CAP PO SCH (09:43)
[2016-11-15] MEDS: ENOXAPARIN 40 MG/0.4 ML SYG SC SCH (09:49)
[2016-11-15] MEDS: CEFEPIME 2GM/50 ML (PMX) 50 ML IVPB SCH ×2 (09:50→21:14)
[2016-11-15] MEDS: AZITHROMYCIN 500MG/NS (PMX) 250 ML IV SCH (10:56)
--- NOTE | 2016-11-15 13:25 | CONS ---
Date/Time of Note Date/Time of Note DATE: 11/15/16 TIME: 13:23 Assessment/Plan Assessment/Plan Additional Assessment/Plan Assessment recommendations; 1. Patient admitted with COPD exacerbation and acute bronchitis and bronchopneumonia with very slow and clinical improvement. 2. 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 3. Persistent leukocytosis. 4. Generalized deconditioning. Continue current treatment. Patient would benefit from transfer to rehab center. Consultation Date/Type/Reason Admit Date/Time Nov 03, 2016 at 13:29 Type of Consultation: Pulmonary 24 HR Interval Summary Free Text/Dictation Patient condition stable. Still complains of shortness of breath upon minimal exertion. Denies any chest pain, wheezing. Complains of mild chest congestion. General exam; elderly male, awake alert currently in no distress. Exam/Review of Systems Vital Signs Vitals Vital Signs Date Time Temp Pulse Resp B/P Pulse Ox O2 Delivery O2 Flow Rate FiO2 11/15/16 12:04 109 11/15/16 12:01 97.8 18 135/74 96 11/15/16 07:40 Nasal Cannula 2.0 Intake and Output 11/14/16 11/14/16 11/15/16 15:00 23:00 07:00 Intake Total 1350 ml 550 ml Output Total 2000 ml 600 ml Balance -650 ml -50 ml Exam HEENT examination; supple neck, no JVD. No lymphadenopathy. Midline trachea. No thyromegaly. Pupils are midsize and reactive to light. Patient has fair dentition. With few missing teeth. Neck Chest examination; diminished breath sounds throughout. S1-S2 audible, no murmurs. Regular rhythm. Abdomen examination; soft, nondistended. No oral organomegaly. Bowel sounds audible. Extremity exam; generalized 1+ anasarca. Patient has a multiple ecchymosis involving all 4 extremities. PELT SHEARER examination; no focal deficit. Patient has a generalized muscular weakness. Results Result Diagram: 11/14/1671411/14/16714 Medications Medications Current Medications Diltiazem HCl (Cardizem Cd) 180 mg DAILY PO Last administered on 11/15/16t 09: 43; Admin Dose 180 MG; Start 11/04/16 at 09:00 Salmeterol Xinafoate/ Fluticasone (Advair 500/50 Diskus) 1 inh BID INH ; Start 11/03/16 at 21:00; Status Future Hold Tiotropium [place] (Spiriva) 1 inh DAILY INH ; Start 11/04/16 at 09:00; Status Future Hold Tamsulosin HCl (Flomax) 0.4 mg HS PO Last administered on 11/14/16 22:28; Admin Dose 0.4 MG; Start 11/03/16 at 21:00 Ondansetron HCl (Zofran Inj) 4 mg Q6H PRN IV NAUSEA AND/OR VOMITING; Start 03/12 at 15:30 Acetaminophen (Tylenol Tab) 650 mg Q6H PRN PO PAIN LEVEL 1-3 OR FEVER; Start at 15:30 Acetaminophen (Tylenol Supp) 650 mg Q6H PRN [place] PAIN LEVEL 1-3 OR FEVER; Start 11/03/16 at 15:30 Acetaminophen/ Hydrocodone Bitart ([place] (5/325)) 1 tab Q6H PRN PO MODERATE PAIN LEVEL 4-6 Last administered on 11/15/16 04:29; Admin Dose 1 TAB; Start 03/12 at 15:30 Acetaminophen/ Hydrocodone Bitart ([place] (5/325)) 2 tab Q6H PRN PO SEVERE PAIN LEVEL 7-10; Start 11/03/16 at 15:30 Morphine Sulfate (morphine) 2 mg Q4H PRN IV SEVERE PAIN LEVEL 7-10; Start 11/03 at 15:30 Magnesium Hydroxide (Milk Of Mag) 30 ml DAILY PRN PO CONSTIPATION Last administered on 11/15/16 09:43; Admin Dose 30 ML; Start 11/03/16 at 15:30 Bisacodyl 10 mg 10 mg DAILY PRN [place] CONSTIPATION; Start 11/03/16 at 15:30 Azithromycin (Zithromax 500mg/ NS (Pmx)) 250 ml @ 250 mls/hr Q24H IV Last administered on 11/15/16 10:56; Admin Dose 250 MLS/HR; Start 11/04/16 at 10:00 Guaifenesin 600 mg 600 mg BID PO Last administered on 11/15/16 09:43; Admin Dose 600 MG; Start 11/03/16 at 21:00 Cefepime HCl (Maxipime 2gm/50 ml (Pmx)) 50 ml @ 100 mls/hr Q12 IVPB Last administered on 11/15/16 09:50; Admin Dose 100 MLS/HR; Start 11/03/16 at 21:00 Zolpidem Tartrate (Ambien) 5 mg HS PRN PO INSOMNIA Last administered on 00:33; Admin Dose 5 MG; Start 11/04/16 at 01:30 Pantoprazole (Protonix Tab) 40 mg DAILY@06 PO Last administered on 11/15/16 06 :19; Admin Dose 40 MG; Start 11/05/16 at 06:00 Methylprednisolone Sodium Succinate (Solu-Medrol) 40 mg BID IV Last administered on 11/15/16 09:43; Admin Dose 40 MG; Start 11/04/16 at 21:00 Enoxaparin Sodium (Lovenox) 40 mg DAILY SC Last administered on 11/15/16 09:49 ; Admin Dose 40 MG; Start 11/12/16 at 09:00 Docusate Sodium (Colace) 100 mg Q12 PO Last administered on 11/15/16 09:42; Admin Dose 100 MG; Start 11/11/16 at 11:00 Furosemide 20 mg 20 mg DAILY@09 IV Last administered on 11/15/16 09:43; Admin Dose 20 MG; Start 11/12/16 at 09:00 Vancomycin HCl 250 ml @ 125 mls/hr Q48H IVPB Last administered on 11/14/16 14 :46; Admin Dose 125 MLS/HR; Start 11/14/16 at 14:00 Fluconazole (Diflucan 200 Mg/ NS (Pmx)) 100 ml @ 100 mls/hr Q24H IVPB Last administered on 11/14/16 17:33; Admin Dose 100 MLS/HR; Start 11/13/16 at 16:00 Miscellaneous Information (*Rx Drug Level Order Reminder*) VANCO TROUGH @ 1, 300 ON... ONCE ONCE XX ; Start 11/16/16 at 13:00; Stop 11/16/16 at 13:01 SHONNA MONTERO Nov 15, 2016 13:25
--- NOTE | 2016-11-15 13:26 | PN ---
Date/Time of Note Date/Time of Note DATE: 11/15/16 TIME: 13:22 Assessment/Plan VTE Prophylaxis VTE Prophylaxis Intervention: LMWH Lines/Catheters IV C[facility]ter Type (from [facility] Saline Lock Urinary Cath still in place: No Assessment/Plan Chief Complaint/Hosp Course Assessment/Plan: 71 M with: 1. Sepsis secondary to Health care associated pneumonia: Corynebacterium - WBC still elevated sec to infx and steroids - Continue abx Vanco + Cefepime x 2 more days per ID / bronchodilators / will start steroids taper / pulm managing, monitor WBC - antifungal meds as well 2. Severe Chronic Emphysema with exacerbation and biapical bullae - F/u pulmonary plan, Duoneb's, may need bronchoscopy. - looking at transfer/d/c to [place] as well - f/u with CM on this 3. Chronic BPH - monitor 4. Iron deficiency Anemia s/p IV iron and s/p blood transfusion yesterday - monitior CBC 5. Leucocytosis: possibly a component of steroid / improving - monitor, abx 7, HTN: controlled on cardizem, no hx of afib - still waiting for PICC placement as well today (ordered yesterday) DVT prophylaxis: Lovenox Problems: Subjective 24 Hr Interval Summary Free Text/Dictation Pt still with some SOB. Some agitation as well. Has not gotten PICC yet (pending ). Exam/Review of Systems Vital Signs Vitals Vital Signs Date Time Temp Pulse Resp B/P Pulse Ox O2 Delivery O2 Flow Rate FiO2 11/15/16 12:04 109 11/15/16 12:01 97.8 18 135/74 96 11/15/16 07:40 Nasal Cannula 2.0 Intake and Output 11/14/16 11/14/16 11/15/16 15:00 23:00 07:00 Intake Total 1350 ml 550 ml Output Total 2000 ml 600 ml Balance -650 ml -50 ml Exam Constitutional: alert, oriented Head: atraumatic, normocephalic Neck: non-tender, supple Respiratory: some distant BS Cardiovascular: regular rate and rhythm Gastrointestinal: nl liver, spleen, non-tender, soft Extremities: normal pulses Results Result Diagram: 11/14/16 0715 11/14/16 0715 Medications Medications Current Medications Diltiazem HCl (Cardizem Cd) 180 mg DAILY PO Last administered on 11/15/16 09: 43; Admin Dose 180 MG; Start 11/04/16 at 09:00 Salmeterol Xinafoate/ Fluticasone (Advair 500/50 Diskus) 1 inh BID INH ; Start 11/03/16 at 21:00; Status Future Hold Tiotropium [place] (Spiriva) 1 inh DAILY INH ; Start 11/04/16 at 09:00; Status Future Hold Tamsulosin HCl (Flomax) 0.4 mg HS PO Last administered on 11/14/16 22:28; Admin Dose 0.4 MG; Start 11/03/16 at 21:00 Ondansetron HCl (Zofran Inj) 4 mg Q6H PRN IV NAUSEA AND/OR VOMITING; Start 03/12 at 15:30 Acetaminophen (Tylenol Tab) 650 mg Q6H PRN PO PAIN LEVEL 1-3 OR FEVER; Start at 15:30 Acetaminophen (Tylenol Supp) 650 mg Q6H PRN [place] PAIN LEVEL 1-3 OR FEVER; Start 11/03/16 at 15:30 Acetaminophen/ Hydrocodone Bitart ([place] (5/325)) 1 tab Q6H PRN PO MODERATE PAIN LEVEL 4-6 Last administered on 11/15/16 04:29; Admin Dose 1 TAB; Start 03/12 at 15:30 Acetaminophen/ Hydrocodone Bitart ([place] (5/325)) 2 tab Q6H PRN PO SEVERE PAIN LEVEL 7-10; Start 11/03/16 at 15:30 Morphine Sulfate (morphine) 2 mg Q4H PRN IV SEVERE PAIN LEVEL 7-10; Start 11/03 at 15:30 Magnesium Hydroxide (Milk Of Mag) 30 ml DAILY PRN PO CONSTIPATION Last administered on 11/15/16 09:43; Admin Dose 30 ML; Start 11/03/16 at 15:30 Bisacodyl 10 mg 10 mg DAILY PRN [place] CONSTIPATION; Start 11/03/16 at 15:30 Azithromycin (Zithromax 500mg/ NS (Pmx)) 250 ml @ 250 mls/hr Q24H IV Last administered on 11/15/16 10:56; Admin Dose 250 MLS/HR; Start 11/04/16 at 10:00 Guaifenesin 600 mg 600 mg BID PO Last administered on 11/15/16 09:43; Admin Dose 600 MG; Start 11/03/16 at 21:00 Cefepime HCl (Maxipime 2gm/50 ml (Pmx)) 50 ml @ 100 mls/hr Q12 IVPB Last administered on 11/15/16 09:50; Admin Dose 100 MLS/HR; Start 11/03/16 at 21:00 Zolpidem Tartrate (Ambien) 5 mg HS PRN PO INSOMNIA Last administered on 00:33; Admin Dose 5 MG; Start 11/04/16 at 01:30 Pantoprazole (Protonix Tab) 40 mg DAILY@06 PO Last administered on 11/15/16 06 :19; Admin Dose 40 MG; Start 11/05/16 at 06:00 Methylprednisolone Sodium Succinate (Solu-Medrol) 40 mg BID IV Last administered on 11/15/16 09:43; Admin Dose 40 MG; Start 11/04/16 at 21:00 Enoxaparin Sodium (Lovenox) 40 mg DAILY SC Last administered on 11/15/16 09:49 ; Admin Dose 40 MG; Start 11/12/16 at 09:00 Docusate Sodium (Colace) 100 mg Q12 PO Last administered on 11/15/16 09:42; Admin Dose 100 MG; Start 11/11/16 at 11:00 Furosemide 20 mg 20 mg DAILY@09 IV Last administered on 11/15/16 09:43; Admin Dose 20 MG; Start 11/12/16 at 09:00 Vancomycin HCl 250 ml @ 125 mls/hr Q48H IVPB Last administered on 11/14/16 14 :46; Admin Dose 125 MLS/HR; Start 11/14/16 at 14:00 Fluconazole (Diflucan 200 Mg/ NS (Pmx)) 100 ml @ 100 mls/hr Q24H IVPB Last administered on 11/14/16 17:33; Admin Dose 100 MLS/HR; Start 11/13/16 at 16:00 Miscellaneous Information (*Rx Drug Level Order Reminder*) VANCO TROUGH @ 1, 300 ON... ONCE ONCE XX ; Start 11/16/16 at 13:00; Stop 11/16/16 at 13:01 HEMA HU Nov 15, 2016 13:26
--- NOTE | 2016-11-15 14:17 | CONS ---
Date/Time of Note Date/Time of Note DATE: 11/15/16 TIME: 14:16 Assessment/Plan Assessment/Plan Chief Complaint/Hosp Course SUBJECTIVE: No acute events overnight. The patient is sleeping, breathing comfortably on nasal cannula. No fevers. He is in no distress. No shortness of breath at rest. ANTIMICROBIALS: 1. Fluconazole day #3. 2. Vancomycin 4. Cefepime day #13. ALLERGIES: SULFA AND LEVAQUIN PHYSICAL EXAMINATION: GENERAL: Fragile, elderly man who is sleeping, in no distress. HEENT: Head atraumatic, normocephalic. Sclerae anicteric. Buccal mucosa dry. NECK: Supple. CHEST: Rise symmetrical. Breath sounds diminished to bases. HEART: S1, S2. ABDOMEN: Soft, bowel tones present. EXTREMITIES: Without cyanosis. ASSESSMENT: 1. Acute on chronic respiratory failure. 2. End-stage emphysema and chronic obstructive pulmonary disease. 3. Pneumonia. 4. Leukocytosis, likely steroid induced. 5. Status post coagulase-negative staph bacteremia with repeat blood cultures negative, consistent with contaminant. 6. ALLERGY TO SULFA AND LEVAQUIN. PLAN: The patient remains stable, completing antibiotics. Continue Diflucan, steroid taper. Follow pulmonary recommendations. staff Problems: Consultation Date/Type/Reason Admit Date/Time Nov 03, 2016 at 13:29 Type of Consultation: ID Exam/Review of Systems Vital Signs Vitals Vital Signs Date Time Temp Pulse Resp B/P Pulse Ox O2 Delivery O2 Flow Rate FiO2 11/15/16 12:04 109 11/15/16 12:01 97.8 18 135/74 96 11/15/16 07:40 Nasal Cannula 2.0 Intake and Output 11/14/16 11/14/16 11/15/16 15:00 23:00 07:00 Intake Total 1350 ml 550 ml Output Total 2000 ml 600 ml Balance -650 ml -50 ml Results Result Diagram: 11/14/16 0715 11/14/16 0715 Medications Medications Current Medications Diltiazem HCl (Cardizem Cd) 180 mg DAILY PO Last administered on 11/15/16t 09: 43; Admin Dose 180 MG; Start 11/04/16 at 09:00 Salmeterol Xinafoate/ Fluticasone (Advair 500/50 Diskus) 1 inh BID INH ; Start 11/03/16 at 21:00; Status Future Hold Tiotropium [place] (Spiriva) 1 inh DAILY INH ; Start 11/04/16 at 09:00; Status Future Hold Tamsulosin HCl (Flomax) 0.4 mg HS PO Last administered on 11/14/16 22:28; Admin Dose 0.4 MG; Start 11/03/16 at 21:00 Ondansetron HCl (Zofran Inj) 4 mg Q6H PRN IV NAUSEA AND/OR VOMITING; Start 03/12 at 15:30 Acetaminophen (Tylenol Tab) 650 mg Q6H PRN PO PAIN LEVEL 1-3 OR FEVER; Start at 15:30 Acetaminophen (Tylenol Supp) 650 mg Q6H PRN [place] PAIN LEVEL 1-3 OR FEVER; Start 11/03/16 at 15:30 Acetaminophen/ Hydrocodone Bitart ([place] (5/325)) 1 tab Q6H PRN PO MODERATE PAIN LEVEL 4-6 Last administered on 11/15/16 04:29; Admin Dose 1 TAB; Start 03/12 at 15:30 Acetaminophen/ Hydrocodone Bitart ([place] (5/325)) 2 tab Q6H PRN PO SEVERE PAIN LEVEL 7-10; Start 11/03/16 at 15:30 Morphine Sulfate (morphine) 2 mg Q4H PRN IV SEVERE PAIN LEVEL 7-10; Start 11/03 at 15:30 Magnesium Hydroxide (Milk Of Mag) 30 ml DAILY PRN PO CONSTIPATION Last administered on 11/15/16 09:43; Admin Dose 30 ML; Start 11/03/16 at 15:30 Bisacodyl 10 mg 10 mg DAILY PRN [place] CONSTIPATION; Start 11/03/16 at 15:30 Azithromycin (Zithromax 500mg/ NS (Pmx)) 250 ml @ 250 mls/hr Q24H IV Last administered on 11/15/16 10:56; Admin Dose 250 MLS/HR; Start 11/04/16 at 10:00 Guaifenesin 600 mg 600 mg BID PO Last administered on 11/15/16 09:43; Admin Dose 600 MG; Start 11/03/16 at 21:00 Cefepime HCl (Maxipime 2gm/50 ml (Pmx)) 50 ml @ 100 mls/hr Q12 IVPB Last administered on 11/15/16 09:50; Admin Dose 100 MLS/HR; Start 11/03/16 at 21:00 Zolpidem Tartrate (Ambien) 5 mg HS PRN PO INSOMNIA Last administered on 00:33; Admin Dose 5 MG; Start 11/04/16 at 01:30 Pantoprazole (Protonix Tab) 40 mg DAILY@06 PO Last administered on 11/15/16 06 :19; Admin Dose 40 MG; Start 11/05/16 at 06:00 Enoxaparin Sodium (Lovenox) 40 mg DAILY SC Last administered on 11/15/16 09:49 ; Admin Dose 40 MG; Start 11/12/16 at 09:00 Docusate Sodium (Colace) 100 mg Q12 PO Last administered on 11/15/16 09:42; Admin Dose 100 MG; Start 11/11/16 at 11:00 Furosemide 20 mg 20 mg DAILY@09 IV Last administered on 11/15/16 09:43; Admin Dose 20 MG; Start 11/12/16 at 09:00 Vancomycin HCl 250 ml @ 125 mls/hr Q48H IVPB Last administered on 11/14/16 14 :46; Admin Dose 125 MLS/HR; Start 11/14/16 at 14:00 Fluconazole (Diflucan 200 Mg/ NS (Pmx)) 100 ml @ 100 mls/hr Q24H IVPB Last administered on 11/14/16 17:33; Admin Dose 100 MLS/HR; Start 11/13/16 at 16:00 Miscellaneous Information (*Rx Drug Level Order Reminder*) VANCO TROUGH @ 1, 300 ON... ONCE ONCE XX ; Start 11/16/16 at 13:00; Stop 11/16/16 at 13:01 Prednisone (Prednisone) 60 mg DAILY PO ; Start 11/16/16 at 09:00 Hydroxyzine HCl (Atarax) 25 mg QHS PRN PO INSOMNIA; Start 11/15/16 at 13:30 ISSAC SIMEON NP Nov 15, 2016 14:17
[2016-11-15] MEDS: SENNA TAB PO SCH ×2 (14:30→21:14)
[2016-11-15] MEDS: POLYETHYLENE GLYCOL 17 GM PACKET PO SCH ×2 (14:30→16:32)
[2016-11-15] MEDS: FLUCONAZOLE 200 MG/NS (PMX) 100 ML IVPB SCH (16:29)
[2016-11-15 16:54] LABS: ADD SCAN DIFF NO
[2016-11-15 16:55] LABS: ABNORMAL IP MESSAGE 1; HEMATOCRIT 22.3 % (42.0-52.0); HEMOGLOBIN 7.3 g/dl (14.0-18.0); MEAN CORPUSCULAR HEMOGLOBIN 28.5 pg (29.0-33.0); MEAN CORPUSCULAR HGB CONC 32.7 g/dl (32.0-37.0); MEAN CORPUSCULAR VOLUME 87.1 fl (82.0-101.0); PLATELET COUNT 116 10^3/UL (140-415); RED BLOOD COUNT 2.56 10^6/ul (4.70-6.10)
[2016-11-15 17:13] LABS: CALCIUM 7.8 mg/dl (8.4-10.2); CREATININE 1.44 mg/dl (0.61-1.24); POTASSIUM 3.3 mmol/L (3.5-5.1)
[2016-11-15 17:26] LABS: MONOCYTE # 1.1 10^3/ul (0.3-0.9)
[2016-11-15 17:27] LABS: ANISOCYTOSIS 2+
[2016-11-15] MEDS: TAMSULOSIN (SR) 0.4 MG CAP PO SCH (21:15)
[2016-11-15] MEDS: hydrOXYzine HCL 25 MG TAB PO PRN (22:57)
[2016-11-16] VITALS (12 sets, daily range): BP systolic 83–120; BP diastolic 51–70; PULSE 74–104; RESP 15–19
[2016-11-16] MEDS: ALBUTEROL/IPRATROPIUM (NEB) 3 ML AMP HHN SCH ×6 (00:58→20:02)
[2016-11-16] MEDS: PANTOPRAZOLE (EC) 40 MG TAB PO SCH (06:15)
[2016-11-16 06:52] LABS: ADD SCAN DIFF NO
[2016-11-16 07:39] LABS: CALCIUM 7.7 mg/dl (8.4-10.2); CREATININE 1.51 mg/dl (0.61-1.24); POTASSIUM 3.3 mmol/L (3.5-5.1)
[2016-11-16 08:00] LABS: ABNORMAL IP MESSAGE 1; HEMATOCRIT 19.8 % (42.0-52.0); MEAN CORPUSCULAR HEMOGLOBIN 28.8 pg (29.0-33.0); MEAN CORPUSCULAR HGB CONC 32.3 g/dl (32.0-37.0); MEAN CORPUSCULAR VOLUME 89.2 fl (82.0-101.0); MEAN PLATELET VOLUME 11.2 fl (7.4-10.4); PLATELET COUNT 114 10^3/UL (140-415); RED BLOOD COUNT 2.22 10^6/ul (4.70-6.10); RED CELL DISTRIBUTION WIDTH 23.4 % (11.5-14.5); WHITE BLOOD COUNT 35.7 10^3/ul (4.8-10.8)
[2016-11-16 08:24] LABS: HEMOGLOBIN 6.4 g/dl (14.0-18.0)
[2016-11-16] MEDS ORDERED: predniSONE 20 MG TAB PO SCH (09:00)
[2016-11-16] MEDS: DOCUSATE SODIUM 100 MG CAP PO SCH ×2 (09:00→21:20)
[2016-11-16] MEDS: SENNA TAB PO SCH ×2 (09:00→21:20)
[2016-11-16] MEDS: FUROSEMIDE 20 MG INJ IV SCH (09:00)
[2016-11-16] MEDS: POLYETHYLENE GLYCOL 17 GM PACKET PO SCH (09:00)
--- NOTE | 2016-11-16 09:00 | RADRPT ---
PROCEDURE: Chest 1 views. CLINICAL INDICATION: A post PICC line placement. TECHNIQUE: AP views of the chest was obtained. COMPARISON: November 09, 2016 FINDINGS: The heart is large. Right-sided PICC line has its tip in the expected location of the proximal super ior vena cava. The lungs are hyperexpanded. Lucency throughout the right lung may reflect bullous disease. Interstitial prominence continues to be identified in both lungs. Calcified granulomatous disease in the right lower lobe is unchanged. Mild infiltrates in the left upper and lower lobes ar e stable. Osseous structures are intact. IMPRESSION: Cardiomegaly . Right-sided PICC line with its tip in the expected location of the proximal superior vena cava. Hyperexpanded lungs with diffuse mild interstitial prominence in both lungs. Interstitial prominenc e could be chronic. Findings could reflect COPD. Lucency throughout the right lung may reflect bull ous disease. Stable calcified granulomatous disease in the right lower lobe. Stable infiltrates in the left upper and lower lobes. RPTAT: AA .Jose Orosco MD, MD Date Time Electronically viewed and signed by .Jose Orosco MD, on 11/16/2016 09:00 .P/
[2016-11-16] MEDS: CEFEPIME 2GM/50 ML (PMX) 50 ML IVPB SCH (09:04)
[2016-11-16] MEDS: DILTIAZEM (CD) 180 MG CAP PO SCH (09:05)
[2016-11-16] MEDS: ENOXAPARIN 40 MG/0.4 ML SYG SC SCH (09:07)
[2016-11-16] MEDS: GUAIFENESIN LA 600 MG TABSR PO SCH ×2 (09:19→21:20)
[2016-11-16] MEDS: AZITHROMYCIN 500MG/NS (PMX) 250 ML IV SCH (09:59)
[2016-11-16 10:24] LABS: LYMPHOCYTES # 1.4 10^3/ul (0.8-2.9); MONOCYTE # 2.9 10^3/ul (0.3-0.9); NEUTROPHIL # 31.4 10^3/ul (1.6-7.5)
[2016-11-16] MEDS: HYDROCODONE/APAP (5/325) TAB PO PRN (10:38)
--- NOTE | 2016-11-16 10:49 | RADRPT ---
PROCEDURE: Ultrasound proximal right upper extremity for PICC placement CLINICAL INDICATION: PICC placement TECHNIQUE: Sonographic evaluation of the proximal right upper extremity vessels was performed util izing a high-frequency linear transducer. COMPARISON: None available FINDINGS: Limited evaluation of the proximal right upper extremity for vascular access for PICC placement. Gr ossly, no abnormality is seen. IMPRESSION: Unremarkable limited proximal right upper extremity ultrasound for PICC placement. RPTAT: JJ .Rolf Henderson MD, MD Date Time Electronically viewed and signed by .Rolf Henderson MD, MD on 11/16/2016 10:49 .A/
--- NOTE | 2016-11-16 11:16 | CONS ---
Date/Time of Note Date/Time of Note DATE: 11/16/16 TIME: 11:13 Assessment/Plan Assessment/Plan Additional Assessment/Plan Assessment and recommendations; 1. P patient admitted for COPD exacerbation with acute bronchopneumonia with underlying severe end-stage COPD. 2. 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 3. Anemia. 4. Renal insufficiency. 5. Generalized deconditioning. 6. Persistent leukocytosis. Patient currently on broad-spectrum antibiotic and antifungal coverage. Continue current supportive care. Patient is to receive 1 unit packed RBC. Overall prognosis remains poor. Consultation Date/Type/Reason Admit Date/Time Nov 03, 2016 at 13:29 Type of Consultation: Pulmonary/critical care 24 HR Interval Summary Free Text/Dictation Patient condition is stable. Still complains of dyspnea on minimal exertion. Complains of chest congestion. Denies any chest pain fever chills. General exam; elderly male, awake alert currently in no distress. Exam/Review of Systems Vital Signs Vitals Vital Signs Date Time Temp Pulse Resp B/P Pulse Ox O2 Delivery O2 Flow Rate FiO2 11/16/16 08:29 109 28 91 Nasal Cannula 2.0 11/16/16 07:31 98.5 105/57 Intake and Output 11/15/16 11/15/16 11/16/16 15:00 23:00 07:00 Intake Total 770 ml 600 ml Output Total 400 ml 950 ml Balance 370 ml -350 ml Exam HEENT exam is; supple neck, no JVD. No lymphadenopathy. Midline trachea. No thyromegaly. No neck masses. Chest examination; diminished breath sounds throughout. S1-S2 audible, no murmurs. Regular rhythm. Abdomen examination; soft, no organomegaly. Nontender. Bowel sounds audible. Extremity exam; trace generalized anasarca. Patient has a multiple ecchymosis involving all 4 extremities. PHYSICIAN INTERNIST exam is; no focal deficit. Patient however does have generalized muscular weakness. Results Result Diagram: 11/16/16 0744 11/16/16 0635 Results 24 hrs Laboratory Tests Test 11/15/16 15:58 11/16/16 06:35 11/16/16 07:44 White Blood Count 35.0 H 35.7 H Red Blood Count 2.56 L 2.22 L Hemoglobin 7.3 L 6.4 *L Hematocrit 22.3 L 19.8 L Mean Corpuscular Volume 87.1 89.2 Mean Corpuscular Hemoglobin 28.5 L 28.8 L Mean Corpuscular Hemoglobin Concent 32.7 32.3 Red Cell Distribution Width 23.0 H 23.4 H Platelet Count 116 L 114 L Mean Platelet Volume 11.0 H 11.2 H Neutrophils % 97.0 H 88.0 H Monocytes % 3.0 8.0 Neutrophils # 34.0 H 31.4 H Monocytes # 1.1 H 2.9 H Anisocytosis 2+ Sodium Level 142 141 Potassium Level 3.3 L 3.3 L Chloride Level 105 107 Carbon Dioxide Level 33 H 31 Anion Gap 7 L 6 L Blood Urea Nitrogen 64 H 83 H Creatinine 1.44 H 1.51 H Glucose Level 110 96 Calcium Level 7.8 L 7.7 L Lymphocytes % 4.0 L Lymphocytes # 1.4 Medications Medications Current Medications Diltiazem HCl (Cardizem Cd) 180 mg DAILY PO Last administered on 11/16/16 09: 05; Admin Dose 180 MG; Start 11/04/16 at 09:00 Salmeterol Xinafoate/ Fluticasone (Advair 500/50 Diskus) 1 inh BID INH ; Start 11/03/16 at 21:00; Status Future Hold Tiotropium [place] (Spiriva) 1 inh DAILY INH ; Start 11/04/16 at 09:00; Status Future Hold Tamsulosin HCl (Flomax) 0.4 mg HS PO Last administered on 11/15/16 21:15; Admin Dose 0.4 MG; Start 11/03/16 at 21:00 Ondansetron HCl (Zofran Inj) 4 mg Q6H PRN IV NAUSEA AND/OR VOMITING; Start 03/12 at 15:30 Acetaminophen (Tylenol Tab) 650 mg Q6H PRN PO PAIN LEVEL 1-3 OR FEVER; Start at 15:30 Acetaminophen (Tylenol Supp) 650 mg Q6H PRN [place] PAIN LEVEL 1-3 OR FEVER; Start 11/03/16 at 15:30 Acetaminophen/ Hydrocodone Bitart ([place] (5/325)) 1 tab Q6H PRN PO MODERATE PAIN LEVEL 4-6 Last administered on 11/16/16 10:38; Admin Dose 1 TAB; Start 03/12 at 15:30 Acetaminophen/ Hydrocodone Bitart ([place] (5/325)) 2 tab Q6H PRN PO SEVERE PAIN LEVEL 7-10; Start 11/03/16 at 15:30 Morphine Sulfate (morphine) 2 mg Q4H PRN IV SEVERE PAIN LEVEL 7-10; Start 11/03 at 15:30 Magnesium Hydroxide (Milk Of Mag) 30 ml DAILY PRN PO CONSTIPATION Last administered on 11/15/16 09:43; Admin Dose 30 ML; Start 11/03/16 at 15:30 Bisacodyl 10 mg 10 mg DAILY PRN [place] CONSTIPATION; Start 11/03/16 at 15:30 Azithromycin (Zithromax 500mg/ NS (Pmx)) 250 ml @ 250 mls/hr Q24H IV Last administered on 11/16/16 09:59; Admin Dose 250 MLS/HR; Start 11/04/16 at 10:00 Guaifenesin 600 mg 600 mg BID PO Last administered on 11/16/16 09:19; Admin Dose 600 MG; Start 11/03/16 at 21:00 Cefepime HCl (Maxipime 2gm/50 ml (Pmx)) 50 ml @ 100 mls/hr Q12 IVPB Last administered on 11/16/16 09:04; Admin Dose 100 MLS/HR; Start 11/03/16 at 21:00 Zolpidem Tartrate (Ambien) 5 mg HS PRN PO INSOMNIA Last administered on 22:24; Admin Dose 5 MG; Start 11/04/16 at 01:30 Pantoprazole (Protonix Tab) 40 mg DAILY@06 PO Last administered on 11/16/16 06 :15; Admin Dose 40 MG; Start 11/05/16 at 06:00 Enoxaparin Sodium (Lovenox) 40 mg DAILY SC Last administered on 11/16/16 09:07 ; Admin Dose 40 MG; Start 11/12/16 at 09:00 Docusate Sodium (Colace) 100 mg Q12 PO Last administered on 11/15/16 21:14; Admin Dose 100 MG; Start 11/11/16 at 11:00 Furosemide 20 mg 20 mg DAILY@09 IV Last administered on 11/15/16 09:43; Admin Dose 20 MG; Start 11/12/16 at 09:00 Vancomycin HCl 250 ml @ 125 mls/hr Q48H IVPB Last administered on 11/14/16 14 :46; Admin Dose 125 MLS/HR; Start 11/14/16 at 14:00 Fluconazole (Diflucan 200 Mg/ NS (Pmx)) 100 ml @ 100 mls/hr Q24H IVPB Last administered on 11/15/16 16:29; Admin Dose 100 MLS/HR; Start 11/13/16 at 16:00 Miscellaneous Information (*Rx Drug Level Order Reminder*) VANCO TROUGH @ 1, 300 ON... ONCE ONCE XX ; Start 11/16/16 at 13:00; Stop 11/16/16 at 13:01 Prednisone (Prednisone) 60 mg DAILY PO Last administered on 11/16/16 09:05; Admin Dose 60 MG; Start 11/16/16 at 09:00 Hydroxyzine HCl (Atarax) 25 mg QHS PRN PO INSOMNIA Last administered on 22:57; Admin Dose 25 MG; Start 11/15/16 at 13:30 Senna (Senokot) 1 tab BID PO Last administered on 11/15/16 21:14; Admin Dose 1 TAB; Start 11/15/16 at 14:30 Polyethylene Glycol (Miralax) 17 gm DAILY PO ; Start 11/15/16 at 14:30 IV Flush (NS 10 ml) 10 ml PRN PRN IV FLUSH LINE; Start 11/15/16 at 16:30 SHONNA MONTERO Nov 16, 2016 11:15
--- NOTE | 2016-11-16 13:12 | CONS ---
Date/Time of Note Date/Time of Note DATE: 11/16/16 TIME: 13:09 Assessment/Plan Assessment/Plan Chief Complaint/Hosp Course SUBJECTIVE: No acute events overnight. No fevers. No shortness of breath at rest. ANTIMICROBIALS: 1. Fluconazole day #4. 2. Vancomycin 4. Cefepime day #14. ALLERGIES: SULFA AND LEVAQUIN PHYSICAL EXAMINATION: GENERAL: Fragile, elderly man who is sleeping, in no distress. HEENT: Head atraumatic, normocephalic. Sclerae anicteric. Buccal mucosa dry. NECK: Supple. CHEST: Rise symmetrical. Breath sounds diminished to bases. HEART: S1, S2. ABDOMEN: Soft, bowel tones present. EXTREMITIES: Without cyanosis. ASSESSMENT: 1. Acute on chronic respiratory failure. 2. End-stage emphysema and chronic obstructive pulmonary disease ?malignancy. 3. Pneumonia. 4. Leukocytosis==> steroid induced. 5. Status post coagulase-negative staph bacteremia with repeat blood cultures negative, consistent with contaminant. 6. ALLERGY TO SULFA AND LEVAQUIN. PLAN: Clinically unchanged, still with significant tachypnea with minimal exertion, completed 2 weeks antibiotics. Will continue Diflucan, steroids/BD's per pulmonary rec-s, dc abx, prognosis poor 2 to end stage COPD DW Dr Soriano Problems: Consultation Date/Type/Reason Admit Date/Time Nov 03, 2016 at 13:29 Type of Consultation: id Exam/Review of Systems Vital Signs Vitals Vital Signs Date Time Temp Pulse Resp B/P Pulse Ox O2 Delivery O2 Flow Rate FiO2 11/16/16 12:19 101 11/16/16 12:13 20 98 Nasal Cannula 2.0 11/16/16 11:49 98.1 83/51 Intake and Output 11/15/16 11/15/16 11/16/16 15:00 23:00 07:00 Intake Total 770 ml 600 ml Output Total 400 ml 950 ml Balance 370 ml -350 ml Results Result Diagram: 11/16/16 0744 11/16/16 0635 Results 24 hrs Laboratory Tests Test 11/15/16 15:58 11/16/16 06:35 11/16/16 07:44 White Blood Count 35.0 H 35.7 H Red Blood Count 2.56 L 2.22 L Hemoglobin 7.3 L 6.4 *L Hematocrit 22.3 L 19.8 L Mean Corpuscular Volume 87.1 89.2 Mean Corpuscular Hemoglobin 28.5 L 28.8 L Mean Corpuscular Hemoglobin Concent 32.7 32.3 Red Cell Distribution Width 23.0 H 23.4 H Platelet Count 116 L 114 L Mean Platelet Volume 11.0 H 11.2 H Neutrophils % 97.0 H 88.0 H Monocytes % 3.0 8.0 Neutrophils # 34.0 H 31.4 H Monocytes # 1.1 H 2.9 H Anisocytosis 2+ Sodium Level 142 141 Potassium Level 3.3 L 3.3 L Chloride Level 105 107 Carbon Dioxide Level 33 H 31 Anion Gap 7 L 6 L Blood Urea Nitrogen 64 H 83 H Creatinine 1.44 H 1.51 H Glucose Level 110 96 Calcium Level 7.8 L 7.7 L Lymphocytes % 4.0 L Lymphocytes # 1.4 Medications Medications Current Medications Diltiazem HCl (Cardizem Cd) 180 mg DAILY PO Last administered on 11/16/16 09: 05; Admin Dose 180 MG; Start 11/04/16 at 09:00 Salmeterol Xinafoate/ Fluticasone (Advair 500/50 Diskus) 1 inh BID INH ; Start 11/03/16 at 21:00; Status Future Hold Tiotropium [place] (Spiriva) 1 inh DAILY INH ; Start 11/04/16 at 09:00; Status Future Hold Tamsulosin HCl (Flomax) 0.4 mg HS PO Last administered on 11/15/16 21:15; Admin Dose 0.4 MG; Start 11/03/16 at 21:00 Ondansetron HCl (Zofran Inj) 4 mg Q6H PRN IV NAUSEA AND/OR VOMITING; Start 03/12 at 15:30 Acetaminophen (Tylenol Tab) 650 mg Q6H PRN PO PAIN LEVEL 1-3 OR FEVER; Start at 15:30 Acetaminophen (Tylenol Supp) 650 mg Q6H PRN [place] PAIN LEVEL 1-3 OR FEVER; Start 11/03/16 at 15:30 Acetaminophen/ Hydrocodone Bitart ([place] (5/325)) 1 tab Q6H PRN PO MODERATE PAIN LEVEL 4-6 Last administered on 11/16/16 10:38; Admin Dose 1 TAB; Start 03/12 at 15:30 Acetaminophen/ Hydrocodone Bitart ([place] (5/325)) 2 tab Q6H PRN PO SEVERE PAIN LEVEL 7-10; Start 11/03/16 at 15:30 Morphine Sulfate (morphine) 2 mg Q4H PRN IV SEVERE PAIN LEVEL 7-10; Start 11/03 at 15:30 Magnesium Hydroxide (Milk Of Mag) 30 ml DAILY PRN PO CONSTIPATION Last administered on 11/15/16 09:43; Admin Dose 30 ML; Start 11/03/16 at 15:30 Bisacodyl 10 mg 10 mg DAILY PRN [place] CONSTIPATION; Start 11/03/16 at 15:30 Azithromycin (Zithromax 500mg/ NS (Pmx)) 250 ml @ 250 mls/hr Q24H IV Last administered on 11/16/16 09:59; Admin Dose 250 MLS/HR; Start 11/04/16 at 10:00 Guaifenesin 600 mg 600 mg BID PO Last administered on 11/16/16 09:19; Admin Dose 600 MG; Start 11/03/16 at 21:00 Cefepime HCl (Maxipime 2gm/50 ml (Pmx)) 50 ml @ 100 mls/hr Q12 IVPB Last administered on 11/16/16 09:04; Admin Dose 100 MLS/HR; Start 11/03/16 at 21:00 Zolpidem Tartrate (Ambien) 5 mg HS PRN PO INSOMNIA Last administered on 22:24; Admin Dose 5 MG; Start 11/04/16 at 01:30 Pantoprazole (Protonix Tab) 40 mg DAILY@06 PO Last administered on 11/16/16 06 :15; Admin Dose 40 MG; Start 11/05/16 at 06:00 Enoxaparin Sodium (Lovenox) 40 mg DAILY SC Last administered on 11/16/16 09:07 ; Admin Dose 40 MG; Start 11/12/16 at 09:00 Docusate Sodium (Colace) 100 mg Q12 PO Last administered on 11/15/16 21:14; Admin Dose 100 MG; Start 11/11/16 at 11:00 Furosemide 20 mg 20 mg DAILY@09 IV Last administered on 11/15/16 09:43; Admin Dose 20 MG; Start 11/12/16 at 09:00 Vancomycin HCl 250 ml @ 125 mls/hr Q48H IVPB Last administered on 11/14/16 14 :46; Admin Dose 125 MLS/HR; Start 11/14/16 at 14:00 Fluconazole (Diflucan 200 Mg/ NS (Pmx)) 100 ml @ 100 mls/hr Q24H IVPB Last administered on 11/15/16 16:29; Admin Dose 100 MLS/HR; Start 11/13/16 at 16:00 Prednisone (Prednisone) 60 mg DAILY PO Last administered on 11/16/16 09:05; Admin Dose 60 MG; Start 11/16/16 at 09:00 Hydroxyzine HCl (Atarax) 25 mg QHS PRN PO INSOMNIA Last administered on 22:57; Admin Dose 25 MG; Start 11/15/16 at 13:30 Senna (Senokot) 1 tab BID PO Last administered on 11/15/16 21:14; Admin Dose 1 TAB; Start 11/15/16 at 14:30 Polyethylene Glycol (Miralax) 17 gm DAILY PO ; Start 11/15/16 at 14:30 IV Flush (NS 10 ml) 10 ml PRN PRN IV FLUSH LINE; Start 11/15/16 at 16:30 ISSAC SIMEON NP Nov 16, 2016 13:12
[2016-11-16] MEDS ORDERED: POTASSIUM CHLORIDE (SR) 20 MEQ TAB PO STA (15:15)
--- NOTE | 2016-11-16 17:17 | PN ---
Date/Time of Note Date/Time of Note DATE: 11/16/16 TIME: 17:16 Assessment/Plan VTE Prophylaxis VTE Prophylaxis Intervention: LMWH Lines/Catheters IV [facility] PICC Line Urinary Cath still in place: No Assessment/Plan Chief Complaint/Hosp Course Assessment/Plan: 71 M with: 1. Sepsis secondary to Health care associated pneumonia: Corynebacterium - WBC still elevated sec to infx and steroids - Continue abx Vanco + Cefepime x 2 more days per ID / bronchodilators / will start steroids taper / pulm managing, monitor WBC - antifungal meds as well 2. Severe Chronic Emphysema with exacerbation and biapical bullae - F/u pulmonary plan, Duoneb's, may need bronchoscopy. - looking at transfer/d/c to [place] as well - f/u with CM on this 3. Chronic BPH - monitor 4. Iron deficiency Anemia s/p IV iron and s/p blood transfusion yesterday - monitior CBC 5. Leucocytosis: possibly a component of steroid / improving - monitor, abx 7, HTN: controlled on cardizem, no hx of afib - still waiting for PICC placement as well today (ordered yesterday) DVT prophylaxis: Lovenox Problems: Exam/Review of Systems Vital Signs Vitals Vital Signs Date Time Temp Pulse Resp B/P Pulse Ox O2 Delivery O2 Flow Rate FiO2 11/16/16 16:49 87 11/16/16 15:55 97.8 18 106/57 94 11/16/16 12:13 Nasal Cannula 2.0 Intake and Output 11/15/16 11/15/16 11/16/16 15:00 23:00 07:00 Intake Total 770 ml 600 ml Output Total 400 ml 950 ml Balance 370 ml -350 ml Results Result Diagram: 11/16/16 0744 11/16/16 0635 Results 24 hrs Laboratory Tests Test 11/16/16 06:35 11/16/16 07:44 11/16/16 13:03 Sodium Level 141 Potassium Level 3.3 L Chloride Level 107 Carbon Dioxide Level 31 Anion Gap 6 L Blood Urea Nitrogen 83 H Creatinine 1.51 H Glucose Level 96 Calcium Level 7.7 L White Blood Count 35.7 H Red Blood Count 2.22 L Hemoglobin 6.4 *L Hematocrit 19.8 L Mean Corpuscular Volume 89.2 Mean Corpuscular Hemoglobin 28.8 L Mean Corpuscular Hemoglobin Concent 32.3 Red Cell Distribution Width 23.4 H Platelet Count 114 L Mean Platelet Volume 11.2 H Neutrophils % 88.0 H Lymphocytes % 4.0 L Monocytes % 8.0 Neutrophils # 31.4 H Lymphocytes # 1.4 Monocytes # 2.9 H Vancomycin Level Trough 14.3 Medications Medications Current Medications Diltiazem HCl (Cardizem Cd) 180 mg DAILY PO Last administered on 11/16/16 09: 05; Admin Dose 180 MG; Start 11/04/16 at 09:00 Salmeterol Xinafoate/ Fluticasone (Advair 500/50 Diskus) 1 inh BID INH ; Start 11/03/16 at 21:00; Status Future Hold Tiotropium [place] (Spiriva) 1 inh DAILY INH ; Start 11/04/16 at 09:00; Status Future Hold Tamsulosin HCl (Flomax) 0.4 mg HS PO Last administered on 11/15/16 21:15; Admin Dose 0.4 MG; Start 11/03/16 at 21:00 Ondansetron HCl (Zofran Inj) 4 mg Q6H PRN IV NAUSEA AND/OR VOMITING; Start 03/12 at 15:30 Acetaminophen (Tylenol Tab) 650 mg Q6H PRN PO PAIN LEVEL 1-3 OR FEVER; Start at 15:30 Acetaminophen (Tylenol Supp) 650 mg Q6H PRN [place] PAIN LEVEL 1-3 OR FEVER; Start 11/03/16 at 15:30 Acetaminophen/ Hydrocodone Bitart ([place] (5/325)) 1 tab Q6H PRN PO MODERATE PAIN LEVEL 4-6 Last administered on 11/16/16 10:38; Admin Dose 1 TAB; Start 03/12 at 15:30 Acetaminophen/ Hydrocodone Bitart ([place] (5/325)) 2 tab Q6H PRN PO SEVERE PAIN LEVEL 7-10; Start 11/03/16 at 15:30 Morphine Sulfate (morphine) 2 mg Q4H PRN IV SEVERE PAIN LEVEL 7-10; Start 11/03 at 15:30 Magnesium Hydroxide (Milk Of Mag) 30 ml DAILY PRN PO CONSTIPATION Last administered on 11/15/16 09:43; Admin Dose 30 ML; Start 11/03/16 at 15:30 Bisacodyl 10 mg 10 mg DAILY PRN [place] CONSTIPATION; Start 11/03/16 at 15:30 Azithromycin (Zithromax 500mg/ NS (Pmx)) 250 ml @ 250 mls/hr Q24H IV Last administered on 11/16/16 09:59; Admin Dose 250 MLS/HR; Start 11/04/16 at 10:00 Guaifenesin (Mucinex) 600 mg BID PO Last administered on 11/16/16 09:19; Admin Dose 600 MG; Start 11/03/16 at 21:00 Zolpidem Tartrate (Ambien) 5 mg HS PRN PO INSOMNIA Last administered on 22:24; Admin Dose 5 MG; Start 11/04/16 at 01:30 Pantoprazole (Protonix Tab) 40 mg DAILY@06 PO Last administered on 11/16/16 06 :15; Admin Dose 40 MG; Start 11/05/16 at 06:00 Enoxaparin Sodium (Lovenox) 40 mg DAILY SC Last administered on 11/16/16 09:07 ; Admin Dose 40 MG; Start 11/12/16 at 09:00 Docusate Sodium (Colace) 100 mg Q12 PO Last administered on 11/15/16 21:14; Admin Dose 100 MG; Start 11/11/16 at 11:00 Furosemide 20 mg 20 mg DAILY@09 IV Last administered on 11/15/16 09:43; Admin Dose 20 MG; Start 11/12/16 at 09:00 Fluconazole (Diflucan 200 Mg/ NS (Pmx)) 100 ml @ 100 mls/hr Q24H IVPB Last administered on 11/15/16 16:29; Admin Dose 100 MLS/HR; Start 11/13/16 at 16:00 Prednisone (Prednisone) 60 mg DAILY PO Last administered on 11/16/16 09:05; Admin Dose 60 MG; Start 11/16/16 at 09:00 Hydroxyzine HCl (Atarax) 25 mg QHS PRN PO INSOMNIA Last administered on 22:57; Admin Dose 25 MG; Start 11/15/16 at 13:30 Senna (Senokot) 1 tab BID PO Last administered on 11/15/16 21:14; Admin Dose 1 TAB; Start 11/15/16 at 14:30 Polyethylene Glycol (Miralax) 17 gm DAILY PO ; Start 11/15/16 at 14:30 IV Flush (NS 10 ml) 10 ml PRN PRN IV FLUSH LINE; Start 11/15/16 at 16:30 HEMA HU Nov 16, 2016 17:17
[2016-11-16] MEDS: FLUCONAZOLE 200 MG/NS (PMX) 100 ML IVPB SCH (18:34)
[2016-11-16] MEDS: TAMSULOSIN (SR) 0.4 MG CAP PO SCH (21:20)
[2016-11-16] MEDS: hydrOXYzine HCL 25 MG TAB PO PRN (23:05)
[2016-11-16] MEDS: ZOLPIDEM 5 MG TAB PO PRN (23:06)
[2016-11-17 00:01] VITALS: BP 139/81; RESP 20
[2016-11-17] MEDS: ALBUTEROL/IPRATROPIUM (NEB) 3 ML AMP HHN SCH ×3 (00:02→05:00)
[2016-11-17 00:11] VITALS: PULSE 122
[2016-11-17 04:00] VITALS: BP 129/62; PULSE 102; RESP 20
[2016-11-17 04:08] VITALS: PULSE 110
[2016-11-17 05:56] VITALS: PULSE 47
[2016-11-17] MEDS ORDERED: EPINEPHrine 0.1 MG/ML SYG ONE ×3 (06:13→06:25)
[2016-11-17] MEDS ORDERED: EPINEPHRINE 4 MG in D5W 250 ML IV SCH (06:15)
--- NOTE | 2016-11-17 07:12 | QN ---
Documentation Comment CODE ELIZABETH called to 5 E. on patient Harlan Chu Arrived to the room 1 epinephrine have been given and CPR was in progress. According to the nurse patient had been admitted for pneumonia with sepsis and had been very ill. When they came into check on him they noticed that he was changing color. They believed him to be breathing initially when I checked his pulses he was pulseless. They called the code at 550. CPR was continued in a immediately intubated the patient. Feel rounds of CPR continuing to give more epinephrine as well as sodium bicarbonate. The patient did regain pulses and CPR was stopped. EKG was immediately performed showing no obvious STEMI on intravenous bowel rhythm.. This lasted only a minute or 2 before the patient was quickly bradycardia and down again and lost pulses. CPR was restarted epinephrine calcium chloride were given. Multiple rounds of high quality CPR were performed. In each pulse check the patient was still bradycardic with a heart rate in the 30s-50s in spite of multiple epinephrine doses. Pulse rhythm checks are produced PEA with the rhythm being severe bradycardia. Patient was also given a liter of IV fluid during this. Never had anything resembling of V. fib or V. tach. Second less pulse check the patient's heart rate was 12. 2 more rounds of CPR performed with epinephrine given. After this the patient was still pulseless and was deathly not responding to epinephrine any longer. Time of was called at 30. During the code I had spoken with the patient's daughter on the phone and informed her that she should come to the hospital and that CPR is being performed and the patient had a very poor prognosis. ET intubation note: During CPR size 7.5 ET tube was easily introduced through the visualized vocal cords using a MAC 4 blade. This was made in the first attempt took approximately 20 seconds. There is good entitled CO2 color change. There are no complications. Oxygenation was 100% for the brief time the patient regained pulses. CHELSY ZARCO DO Nov 17, 2016 07:12
--- NOTE | 2016-11-17 11:50 | PN ---
DATE: 11/17/2016 SUBJECTIVE: Chart reviewed. The patient currently on 2 liters nasal cannula, saturating 96%. PHYSICAL EXAMINATION: VITAL SIGNS: Blood pressure 129/62, pulse 102, respiration 20, temperature afebrile. HEENT: Pupils are equal and reactive to light. NECK: Supple, no JVD noted, no cervical adenopathy, there are no carotid bruits heard. LUNGS: Few scattered rhonchi, diminished breath sounds. CARDIOVASCULAR: S1, S2 normal. ABDOMEN: Soft, nontender. No organomegaly or masses noted. EXTREMITIES: No clubbing or cyanosis noted Edema present. Ecchymotic areas in the extremities not ed. NEUROLOGIC: Generalized weakness. LABORATORY DATA: None today. IMPRESSION: 1. Chronic obstructive pulmonary disease exacerbation. 2. Bronchopneumonia. 3. Bullous emphysema. 4. Anemia. 5. Renal insufficiency. 6. Generalized deconditioning. 7. Anemia. RECOMMENDATIONS: 1. Continue current treatment. 2. Continue antibiotics. 3. Continue bronchodilators. 4. Transfuse packed RBC p.r.n. 5. Followup labs. Dictated By: ТАТЬЯНА CHERY MD, MA/MERCED Conf#: [id number] DID#: [id number]
--- NOTE | 2016-11-17 14:16 | DES ---
Date/Time of Note Date/Time of Note DATE: 11/17/16 TIME: 14:02 Discharge/ Summary Admission/Discharge Info Admit Date/Time Nov 03, 2016 at 13:29 Discharge Date/Time Final Diagnosis 1. Sepsis secondary to Health care associated pneumonia: Corynebacterium 2. Severe Chronic Emphysema with exacerbation and biapical bullae 3. Chronic BPH 4. Iron deficiency Anemia s/p IV iron and s/p blood transfusion 5. Leucocytosis: possibly a component of steroid + infx 6. HTN Preliminary Cause of 1. respiratory distress sec to asystole (minutes) 2. cardiac arrest (minutes) 3. advanced COPD (years) Hospital Course 71 year old male with history of emphysema, BPH, O2 dependence, who came to [facility] due to reports of 5 days duration shortness of breath. Patient reported that he started to have some cough with associated productive yellow phlegm and also increasing dyspnea on exertion for 5 days. He did report that he had become so weak that he fell on his tailbone 3 times when trying to get up from his couch. He denies any loss of consciousness or chest pain. No reports having symptoms of shortness of breath despite the use of his inhalers. He did go to [facility] due to the aformentiond issues and he did have a chest x-ray did show him to have a new left suprahilar opacity suggestive of pneumonia. There is also seen some increase in hilar vascular and interstitial congestive changes. Additionally since he did have a fall he had thoracic and lumbar spine x-ray that was negative for any definite acute fracture. On laboratory work on admission he was found to have a lactic acid of 2.7 and additionally had a white count of 35.3. He did have some pneumonia normocytic normochromic likely of chronic disease. He did remain afebrile but was noted with heart rate as high as 120. He was admitted, seen by pulm, PT, and ID teams. He was treated for sepsis secondary to Health care associated pneumonia: Corynebacterium infx with abx. He was also treated for severe Chronic Emphysema with exacerbation and biapical bullae found. Pt's WBC remained elevated, he got breathing tx's, steroids, and abx continued. On the day on 11/16/16 pt was found with severe anemia and given pRBC transfusion. On the morning on 11/17/16 at 5:48 AM pt unfortunately had vfib arrest, and CODE agustin called, and despite resuscitative efforts, pt at 6:30 AM same day. Pending Labs/Cultures Laboratory Tests Test 11/17/16 05:52 Bedside Glucose 134mg/dL (70-220) HEMA HU Nov 17, 2016 14:15
== END 2016-11-17 07:00 | disposition expired | DRG 871 ==
LOC: E/R 10:25 → MS4 13:29
PROVIDERS: ADMIT Internal Medicine; ATTEND Internal Medicine
PROC: 30233N1 Transfusion of Nonautologous Red Blood Cells into Peripheral Vein, Percutaneous Approach (ICD-10-PCS; 2016-11-12)
PROC: 02HV33Z Insertion of Infusion Device into Superior Vena Cava, Percutaneous Approach (ICD-10-PCS; principal; 2016-11-15)
PROC: 5A12012 Performance of Cardiac Output, Single, Manual (ICD-10-PCS; 2016-11-17)
PROC: 0BH17EZ Insertion of Endotracheal Airway into Trachea, Via Natural or Artificial Opening (ICD-10-PCS; 2016-11-17)
DX: A41.9 Sepsis, unspecified organism (principal); J15.8 Pneumonia due to other specified bacteria; J96.11 Chronic respiratory failure with hypoxia; J96.12 Chronic respiratory failure with hypercapnia; Z99.81 Dependence on supplemental oxygen; J44.1 Chronic obstructive pulmonary disease with (acute) exacerbation; J44.0 Chronic obstructive pulmonary disease with (acute) lower respiratory infection; D50.9 Iron deficiency anemia, unspecified; I10 Essential (primary) hypertension; N40.0 Benign prostatic hyperplasia without lower urinary tract symptoms; J20.9 Acute bronchitis, unspecified; Y95 Nosocomial condition; T38.0X5A Adverse effect of glucocorticoids and synthetic analogues, initial encounter; D72.829 Elevated white blood cell count, unspecified; Y92.89 Other specified places as the place of occurrence of the external cause; Z87.891 Personal history of nicotine dependence
CPT/HCPCS: 36415; 36430; 36569; 71010; 71250; 71260; 72072; 72100; 76937; 80048; 80053; 80061; 80202; 82565; 82962; 83036; 83540; 83605; 83735; 84100; 84436; 84443; 84479; 84484; 85014; 85025; 85610; 85730; 86850; 86900; 86901; 86920; 87040; 87070; 87086; 93005; 93306; 93971; 94640; 94664; 96374; 96375; 97162; J1940; C9113; J0171; J0456; J0692; J0696; J1644; J1650; J2916; J2920; J2930; J3370; J7030; J7040; J7050; J7070; J7512; P9016; Q9967